=== PATIENT | female | born 1945 | race Caucasian/White ===

== ENCOUNTER 2019-08-01 10:48 | Outpatient (CLI) | payer MEDICARE, SELFPAY ==
--- NOTE | 2019-08-01 11:01 | MM_ITS ---
WS: [id number] BILATERAL SCREENING DIGITAL MAMMOGRAM WITH CAD HISTORY: SCREENING COMPARISON: 05/24/2018 and 11/30/2014 Bilateral CC and MLO views submitted. Computer aided detection analyzed. Breast composition: The breasts are heterogeneously dense, which may obscure small masses. No suspici ous masses, microcalcifications or architectural distortion. Benign calcifications are scattered thro ughout each breast. No distortion. MM/[place] [id number] IMPRESSION: BI-RADS: 2-Benign FOLLOW UP: 1 Year Follow-up
== END 2019-08-01 10:49 | disposition home or self-care (01) ==
LOC: RADSHAW 10:52
PROVIDERS: Family Provider Family Medicine; PCP Family Medicine; Visit Provider Family Medicine
DX: Z12.31 Encounter for screening mammogram for malignant neoplasm of breast (principal)
CPT/HCPCS: 77067

== ENCOUNTER → 2020-12-20 16:30 | Outpatient (BNVA) | payer MEDICARE, SELFPAY | PROVIDERS: Family Provider Family Medicine; PCP Family Medicine; Visit Provider Nurse Practitioner Family | DX: J20.9 Acute bronchitis, unspecified (principal); R68.89 Other general symptoms and signs | CPT/HCPCS: 87635 ==

== ENCOUNTER → 2020-12-29 16:20 | Outpatient (BNVA) | payer MEDICARE, SELFPAY | PROVIDERS: Family Provider Family Medicine; PCP Family Medicine; Visit Provider Nurse Practitioner Family | DX: J40 Bronchitis, not specified as acute or chronic (principal); R06.02 Shortness of breath; I70.0 Atherosclerosis of aorta | CPT/HCPCS: 71046 ==

== ENCOUNTER 2021-05-17 12:04 | Outpatient (CLI) | payer MEDICARE, SELFPAY ==
--- NOTE | 2021-05-17 12:09 | USCV_ITS ---
Nisha Galindo Age: 76 Gender: F : 1945 Exam Date: 05/17/2021 12:31 Ordering Phys: Susan Sinclair NP Technologist: Harvinder Rodriguez Exam Location: [facility] [place] Indication: SOB BP: 126 / 68 HR: 66 Rhythm: Sinus Technical Quality: Technically difficult study MEASUREMENTS (Male / Female) Normal Values 2D ECHO LV Diastolic Diameter PLAX 4.2 cm 4.2 - 5.9 / 3.9 - 5.3 cm LV Systolic Diameter PLAX 3.0 cm IVS Diastolic Thickness 0.9 cm 0.6 - 1.0 / 0.6 - 0.9 cm IVS Systolic Thickness 1.3 cm LVPW Diastolic Thickness 1.4 cm 0.6 - 1.0 / 0.6 - 0.9 cm LVPW Systolic Thickness 1.7 cm LVOT Diameter 2.0 cm LV Ejection Fraction 2D Teich 55.3 % LV Ejection Fraction MOD 2C 56.5 % LV Ejection Fraction 2C AL 55.7 % LA Diameter 3.1 cm LA Width 2.6 cm LA Height 4.7 cm RA Width 3.0 cm RA Height 3.8 cm Aorta at Sinotubular Diameter 2.3 cm M-MODE MV E Point Septal Separation 1.1 cm DOPPLER AV Peak Velocity 127.0 cm/s LVOT Peak Velocity 91.0 cm/s AV Area Cont Eq vti 2.6 cm squared AV Area Cont Eq pk 2.3 cm squared MV Area PHT 3.9 cm squared Mitral E to A Ratio 0.8 MV E' Velocity 23.5 cm/s Mitral E to MV E' Ratio 5.2 Mitral E to LV E' Lateral Ratio 6.8 Mitral E to LV E' Septal Ratio 4.3 TR Peak Velocity 137.0 cm/s TR Peak Gradient 7.5 mmHg RV Acceleration Time 0.1 s RV Ejection Time 0.3 s RV AcT/ET 0.3 FINDINGS Left Ventricle Normal left ventricular size. LV systolic function is normal with EF of 55-60%. No regional wall motion abnormalities. Grade 1 diastolic dysfunction Right Ventricle The right ventricle is normal in size and function. Right Atrium The right atrium is normal in size. Left Atrium The left atrium is normal in size. Mitral Valve Structurally normal mitral valve without significant stenosis or prolapse. There is trace mitral regurgitation. Aortic Valve Grossly normal with no significant stenosis. There is no aortic regurgitation. Tricuspid Valve Structurally normal tricuspid valve without significant stenosis or regurgitation. Insufficient TR jet to calculate RVSP Pulmonic Valve Grossly normal Pericardium Normal pericardium without effusion. Aorta Normal ascending aorta dimension. CONCLUSIONS LV systolic function is normal with EF 55 to 60%. Grade 1 diastolic dysfunction. Trace mitral regurgitation. No comparison studies are available. Brock Blair MD (Electronically Signed) Final Date: 25 May 2021 18:19 S
== END 2021-05-17 12:05 | disposition home or self-care (01) ==
LOC: RAD 12:07
PROVIDERS: PCP Family Medicine; Visit Provider Nurse Practitioner Family
DX: R06.02 Shortness of breath (principal); I34.0 Nonrheumatic mitral (valve) insufficiency
CPT/HCPCS: 93306

== ENCOUNTER → 2021-07-07 13:00 | Outpatient (BNVA) | payer MEDICARE, SELFPAY | PROVIDERS: PCP Family Medicine; Visit Provider Internal Medicine Cardiovascular Disease | DX: R06.02 Shortness of breath (principal); I50.33 Acute on chronic diastolic (congestive) heart failure; N18.9 Chronic kidney disease, unspecified; G25.0 Essential tremor; E11.65 Type 2 diabetes mellitus with hyperglycemia; I13.0 Hypertensive heart and chronic kidney disease with heart failure and stage 1 through stage 4 chronic kidney disease, or unspecified chronic kidney disease; F32.89 Other specified depressive episodes; G47.33 Obstructive sleep apnea (adult) (pediatric); E78.2 Mixed hyperlipidemia; Z79.01 Long term (current) use of anticoagulants; R07.2 Precordial pain | CPT/HCPCS: 80048; 83880; 84443; 85025 ==

== ENCOUNTER → 2021-08-16 10:45 | Outpatient (BNVA) | payer MEDICARE, SELFPAY | PROVIDERS: PCP Family Medicine; Referring Provider Family Medicine; Visit Provider Specialist | DX: G31.84 Mild cognitive impairment of uncertain or unknown etiology (principal); R25.1 Tremor, unspecified; R44.1 Visual hallucinations; F32.A Depression, unspecified; Z86.16 Personal history of COVID-19 | CPT/HCPCS: 96116; 99205 ==

== ENCOUNTER 2021-08-31 07:14 | Outpatient (CLI) | payer MEDICARE, SELFPAY ==
[2021-08-31 08:09] VITALS: BMI 41.0
--- NOTE | 2021-08-31 08:11 | NMCV_ITS ---
NM roxi perf SPECT r/s* [id number] Nisha Galindo Age: 76 Gender: F : 1945 Exam Date: 08/31/2021 08:53 Ordering Phys: Char Mendez MD ([email or web address]) Technologist: LG Castellon Exam Location: [facility] Indications: SHORTNESS OF BREATH STRESS TEST Please see separate stress test report in [facility] for full findings IMAGE PROTOCOL Rest/Stress 1 Lexiscan Day Radiopharmaceutical Dose (mCi) Administration Site Administered by Rest: Tc-99m 10.8 IV LG Lopez Sestamibi Stress:Tc-99m 32.5 IV LG Castellon Sestamirajendra Rest: 31-Aug-2021 60 Discovery 630 Stress: 31-Aug-2021 30 Discovery 630 0.4mg Lexiscan. Images obtained in supine and prone position. SPECT RESULTS Technical Quality: Excellent Raw Data Analysis: Normal Image Corrections: No attenuation or motion correction applied Summed Stress Score: 4 Summed Rest Score: 2 Summed Difference Score: 2 PERFUSION FINDINGS Small to moderate area of moderately decreased size of it was noted in the mid inferolateral and apical lateral regions. Some reversibility was noted in the mid inferolateral region. FUNCTIONAL RESULTS (calculated via Gated SPECT) Stress Image LV EF (%): 70 Stress EDV (mL):80 TID: 0.91 Stress ESV (mL):24 FUNCTIONAL FINDINGS: Segmental wall motion analysis revealing no gross wall motion abnormalities IMPRESSIONS 1. Myocardial perfusion imaging revealing is small to moderate area of decreased tracer uptake in the mid inferolateral and apical lateral region, but some reversibility in the mid inferolateral region suggestive of myocardial scarring with ischemia in the distribution of the left circumflex artery. 2. Normal LV ejection fraction 70%. 3. LV wall motion analysis revealing no gross wall motion normalities. 4. Normal LV volume. No similar previous studies are available for comparison Dr Char Mendez MD FACC (Electronically Signed) Final Date: 01 September 2021 00:48 S
--- NOTE | 2021-08-31 08:11 | ECG_ITS ---
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 Interpretive Statements NAME OF STUDY: LEXISCAN SESTAMIBI STRESS TEST INDICATION: Chest Pain, PROCEDURE: At the baseline, the EKG revealed atrial flutter with a fixed AV block. Poor R wave progression. Nonspecific T wave changes. The baseline blood pressure was 134/85 mm Hg with a heart rate of 74 beats/min. Lexiscan was infused over a period of 20 seconds. A total of 0.4 milligrams of Lexiscan was infused. The stress phase was continued for a total of 5 minutes. Heart rate at the end of the stress phase was 109 with a blood pressure 153/95. The EKG at the peak infusion revealed no significant changes. Sestamibi was injected 20 seconds after the Lexiscan infusion. Blood pressure at the end of the recovery phase was 143/85 with a heart rate of 84 per minute. CONCLUSION: 1. No significant EKG changes with the LexiScan infusion 2. No LexiScan induced chest pain or cardiac arrhythmia 3. Normal blood pressure and heart rate response 4. Sestamibi/sestamibi perfusion scan pending; see separate report. Electronically Signed On 09-01-2021 0:19:26 PROPERTY UNDERWRITER by Char Mendez M.D. [id number]
[2021-08-31] MEDS: regadenoson 0.4 Mg/5 ml Syringe IVP (09:48)
[2021-08-31] MEDS: ondansetron 2 mg/ML SDV 2 mL 4 MG IVP (10:03)
[2021-08-31 10:05] VITALS: BP 143/85; PULSE 84
== END 2021-08-31 07:15 | disposition home or self-care (01) ==
LOC: RAD 07:16 → CDL 07:55
PROVIDERS: PCP Family Medicine; Visit Provider Internal Medicine Cardiovascular Disease
DX: R07.9 Chest pain, unspecified (principal); R06.02 Shortness of breath
CPT/HCPCS: 78452; 93017; A9500; J2405; J2785

== ENCOUNTER 2021-10-04 08:53 | Outpatient (CLI) | payer MEDICARE, SELFPAY ==
--- NOTE | 2021-10-04 09:30 | MR_ITS ---
WS: [id number] MRI HEAD WITHOUT CONTRAST TECHNIQUE: Sagittal T1, T2 axial, T2 axial FLAIR, axial and coronal T1 images, axial susceptibility w eighted imaging, axial diffusion weighted images, and coronal T2 images were obtained. CLINICAL INFORMATION: G31.84 - Mild cognitive impairment, so stated COMPARISON: CT 1 16,008 FINDINGS: No evidence of restricted diffusion to suggest acute ischemia. Ventricular system and basal cisterns are patent. Moderate small vessel changes with moderate parenchymal volume loss. Normal posterior fos sa. Normal vascular flow voids at the skull base. No extra-axial fluid collections. No evidence of ma ss or mass effect. Paranasal sinuses and mastoid air cells are well aerated. Normal optic chiasm and pituitary infundibulum. Moderate to advanced symmetric atrophy temporal lobes and hippocampal formations has progressed compared to 2008. No hemosiderin on susceptibly weighted i mages. MR/MR head wo con* [id number] IMPRESSION: 1. No evidence of restricted diffusion to suggest acute ischemia. 2. Moderate small vessel changes with moderate parenchymal volume loss. 3. Paranasal sinuses and mastoid air cells well aerated. 4. No hemosiderin on susceptibly weighted images. 5. Moderate to advanced symmetric atrophy temporal lobes and hippocampal forma tions. This is advanced compared to the cerebral parenchymal volume loss. 6. Normal optic chiasm and pituitary infundibulum. 7. Parenchymal volume loss and atrophy has progressed compared to 2008.
== END 2021-10-04 08:54 | disposition home or self-care (01) ==
LOC: RAD 08:55
PROVIDERS: PCP Family Medicine; Visit Provider Specialist
DX: G31.84 Mild cognitive impairment of uncertain or unknown etiology (principal)
CPT/HCPCS: 70551; 99214

== ENCOUNTER → 2021-12-21 14:45 | Outpatient (BNVA) | payer MEDICARE, SELFPAY | PROVIDERS: PCP Family Medicine; Visit Provider Specialist | DX: G31.84 Mild cognitive impairment of uncertain or unknown etiology (principal); G25.0 Essential tremor | CPT/HCPCS: 99215 ==

== ENCOUNTER → 2022-01-03 15:18 | Outpatient (BNVA) | payer MEDICARE, SELFPAY | PROVIDERS: PCP Family Medicine; Visit Provider Internal Medicine Cardiovascular Disease | DX: R94.39 Abnormal result of other cardiovascular function study (principal); I11.9 Hypertensive heart disease without heart failure; Z87.891 Personal history of nicotine dependence; F32.89 Other specified depressive episodes; G47.33 Obstructive sleep apnea (adult) (pediatric); E78.2 Mixed hyperlipidemia; E11.65 Type 2 diabetes mellitus with hyperglycemia; Z79.84 Long term (current) use of oral hypoglycemic drugs | CPT/HCPCS: 99214 ==

== ENCOUNTER → 2022-03-22 15:11 | Outpatient (BNVA) | payer MEDICARE, SELFPAY | PROVIDERS: PCP Family Medicine; Visit Provider Specialist | DX: G31.84 Mild cognitive impairment of uncertain or unknown etiology (principal); G25.0 Essential tremor | CPT/HCPCS: 99213 ==

== ENCOUNTER 2022-08-31 13:01 | Emergency (ER) | payer MEDICARE, SELFPAY ==
[2022-08-31 13:20] VITALS: BP 152/69; PULSE 71; RESP 16; TEMP 36.7; O2SAT 98
--- NOTE | 2022-08-31 13:42 | XR_ITS ---
WS: [id number] Right wrist, 3 views, 08/31/2022 Clinical Data: fall with right wrist injury Comparison: None. Findings: No fractures or dislocations are seen. The carpal bones are intact. There is no soft tissue swelling. The distal radius and ulna are not remarkable. There is cyst formation in the scaphoid bone. There are ventral calcifications which may be adjacent to the triquetrum or the lunate. There are faint calcifications of the triradiate cartilage. XR/XR wrist RT min 3V* [id number] Impression: Negative for right wrist fracture.
--- NOTE | 2022-08-31 14:14 | W.ED.EXTPRO ---
HPI - Extremity Problem General: Chief complaint: Extremity Injury, Upper Stated complaint: right wrist injury Time Seen by Provider: 08/31/22 13:40 History of Present Illness: Patient is a 77-year-old female comes to the ED with right wrist and hand injury. Injury occurred last night. Patient states she was walking in her house somewhat to push her ottoman out of the way and she fell backwards up against the wall. She slid down the wall and landed on her right hand and wrist. Denies any loss of consciousness or any other injury. She has pain in her right wrist and hand that she rates a 5 out of 10. She has localized points of pain near the base of her thumb, third and fourth metacarpals and ulnar aspect of wrist. Pain worsens with any movement of wrist or fingers. Associated symptoms: Deny chest pain, fever(s) or rash Review of Systems Const: Denies: fever(s), chills or fatigue Eyes: Denies: change in vision or eye discomfort ENMT: Denies: throat pain, odynophagia, nasal discharge or nasal congestion Card: Denies: chest pain, palpitations, edema, swelling of feet/ankles, dyspnea on exertion or orthopnea Resp: Denies: dyspnea, productive cough or non-productive cough GI: Denies: abdominal pain, nausea, vomiting, diarrhea, constipation or hematochezia : Denies: flank pain, dysuria or hematuria Musc: Reports: extremity pain (Right wrist and hand pain), extremity swelling (Right wrist and hand) and limited range of motion (Right wrist and hand); Denies: neck pain or back pain Skin/Breast: Denies: rash or new lesions Neuro: Denies: headache(s), numbness in extremities or weakness in extremities PFS ED PFSH: Medical History Depression Diabetes mellitus Diastolic dysfunction Essential tremor Hemorrhagic diarrhea History of rectocele Hyperlipemia Rectal bleeding Sleep apnea Surgical History History of knee replacement Hx of cholecystectomy Hx of hysterectomy Hx of tonsillectomy Family History Family/Other No problems noted. Father CAD (coronary artery disease), Onset Age: 70 Diabetes Mother CAD (coronary artery disease), Onset Age: 60 Grandmother Chronic kidney disease (CKD) Son Lung disease Denies family history of Clotting disorder Dementia Suicide Anesthesia complication Bleeding disorder Cancer Stroke Social History Smoking and tobacco status: never smoked Quit status (tobacco): has quit using tobacco Year quit tobacco: 1984 Former quit date comment: 1 PPD X 15 YEARS Alcohol intake: current Alcohol intake frequency: holidays/special occasions only Female Reproductive History: Spontaneous abortions: No Physical Exam Const: COMMON NORMALS: no acute distress, patient oriented x3 and alert GENERAL APPEARANCE: cooperative HENMT: COMMON NORMALS: normocephalic HEAD & SCALP: normocephalic MOUTH: Normal oral and palatal mucosa present THROAT: posterior oropharynx normal and uvula midline Neck/C-Spine: COMMON NORMALS: supple GENERAL: Yes normal visual inspection Resp: COMMON NORMALS: normal respiratory effort, No retractions, No use of accessory muscles and clear to auscultation bilaterally AUSCULTATION: clear to auscultation bilaterally Cardio: COMMON NORMALS: regular rate, regular rhythm, S1 normal heart sound present, S2 normal heart sound present, No gallops present (Cardio), No clicks present (Cardio), No murmurs present (Cardio) and Peripheral pulses 2+ throughout RATE: regular rate RHYTHM: regular rhythm HEART SOUNDS: S1 normal heart sound present and S2 normal heart sound present PERIPHERAL PULSES: Peripheral pulses 2+ throughout GI: COMMON NORMALS: Normal to inspection, nondistended, normoactive bowel sounds present, Soft to palpation, non-tender and no masses PALPATION: Yes Soft to palpation : COMMON NORMALS: Yes no CVA tenderness BLADDER/KIDNEY EXAM: Yes no CVA tenderness Back/Pelvis: COMMON NORMALS: no CVA tenderness Extremity: NARRATIVE EXTREMITY EXAM: Right wrist and hand?no visible deformity noted. Mild swelling noted around wrist and hand. Tenderness over the ulnar aspect of wrist, thenar region of thumb and third and fourth metacarpals. Full range of motion but endorses pain with range of motion. Neurovascular intact distally. Neuro: COMMON NORMALS: patient oriented x3 SENSORIUM/ORIENTATION: Yes alert GAIT: Yes Normal gait present Skin: GENERAL SKIN EXAM: dry skin Course Vital Signs: Vital signs: Vital Signs Temperature 98.1 F 08/31/22 13:20 Pulse Rate 71 08/31/22 13:20 Respiratory Rate 16 08/31/22 13:20 Blood Pressure 152/69 08/31/22 13:20 Pulse Oximetry 98 08/31/22 13:20 Oxygen Delivery Me thod 08/31/22 13:20 MDM - Extremity (Nontraumatic) Medical Decision Making Patient is a 77-year-old female comes to the ED with right wrist and hand injury. Injury occurred last night. Patient states she was walking in her house somewhat to push her ottoman out of the way and she fell backwards up against the wall. She slid down the wall and landed on her right hand and wrist. Denies any loss of consciousness or any other injury. She has pain in her right wrist and hand that she rates a 5 out of 10. She has localized points of pain near the base of her thumb, third and fourth metacarpals and ulnar aspect of wrist. Pain worsens with any movement of wrist or fingers. Vital stable. Right wrist and hand?no visible deformity noted. Mild swelling noted around wrist and hand. Tenderness over the ulnar aspect of wrist, thenar region of thumb and third and fourth metacarpals. Full range of motion but endorses pain with range of motion. Neurovascular intact distally. Right wrist x-ray?negative for right wrist fracture. Patient was diagnosed with a injury of right wrist and discharged home with a Velcro wrist splint. She was told all follow-up with her PCP within the next week for reevaluation. Return to ED precautions given. Patient understood and agreed with plan. Lab Data Radiology Impressions Wrist X-Ray 08/31/22 13:42 Impression: Negative for right wrist fracture. Discharge Plan Discharge Patient Disposition: Home Clinical Impression: Injury of right wrist Qualifiers: Encounter type: initial encounter Qualified Code(s): S69.91XA - Unspecified injury of right wrist, hand and finger(s), initial encounter Condition: Stable Prescriptions: No Action metformin 1,000 mg tablet 1,000 mg PO BID montelukast 10 mg tablet 10 mg PO DAILY olmesartan 20 mg tablet 20 mg PO DAILY pantoprazole 40 mg tablet,delayed release (DR/EC) 40 mg PO DAILY promethazine 12.5 mg tablet 12.5 mg PO Q6H PRN tramadol 100 mg tablet 100 mg PO DAILY PRN lovastatin 40 mg tablet 40 mg PO DAILY desvenlafaxine 100 mg tablet extended release 24 hr 100 mg PO DAILY lamotrigine 100 mg tablet 200 mg PO DAILY metoprolol tartrate 50 mg tablet 50 mg PO BID albuterol sulfate [ProAir HFA] 90 mcg/actuation HFA aerosol inhaler 2 puff inhalation Q6H PRN (Reason: shortness of breath or wheezing) Qty: 8.5 0RF ipratropium bromide 21 mcg (0.03 %) spray,non-aerosol 2 spray intranasal BID Qty: 30 0RF Rx Instructions: administer into each nostril albuterol sulfate 2.5 mg /3 mL (0.083 %) solution for nebulization 2.5 mg inhalation Q6H PRN (Reason: shortness of breath or wheezing) Qty: 75 0RF (DME) AeroEclipse II Nebulizer [facility] [place] Instructions .Route Qty: 1 0RF Rx Instructions: As directed budesonide 0.5 mg/2 mL suspension for nebulization 0.5 mg inhalation BID Qty: 60 0RF nitroglycerin 0.4 mg tablet, sublingual 0.4 mg sublingual Q5M PRN (Reason: chest pain) 30 Days Qty: 30 3RF Rx Instructions: until response; do not exceed 3 doses per episode isosorbide mononitrate 30 mg tablet extended release 24 hr 30 mg PO DAILY 30 Days Qty: 30 5RF benztropine 2 mg tablet 2 mg PO BID Qty: 60 3RF Rx Instructions: Take one tablet twice daily. Discharge Orders: Discharge ED (Routine); Ordered 08/31/22 Ordered By: Panchito Rueda Referrals: Margo Galindo MD [Primary Care Provider] - Discharge Diet: Regular Discharge Activity: Increase activity as tolerated Patient Instructions: Wrist Injury (ED) Activity Restrictions/Additional Instructions: Follow-up with medical provider as directed in the next 5 to 7 days for reevaluation. Wear Velcro wrist splint for the next couple days to help with symptoms. Rest, ice and elevate right wrist and hand. Take [id number] Tylenol or ibuprofen to help with pain. Return to the ER or your medical provider if condition worsens. Please read and understand discharge instructions. Thank you for choosing [facility] for your healthcare needs today. Please realize this is an emergency room and that we are providing you with a medical screening exam and this may not be complete and all inclusive of all the testing and or work up that you may need to determine your ailment or severity of your illness. It is very important that you follow up as instructed or that you return to the Emergency Department should you have concerns or if your condition changes or worsens in any way. Coding Level of Care Code ED Java Mobile Developer for Tahira Zamora
[2022-08-31] MEDS: acetaminophen 500 mg Tablet 1000 MG PO (14:41)
== END 2022-08-31 14:42 | disposition home or self-care (01) ==
PROVIDERS: Emergency Provider Physician Assistant; PCP Family Medicine
DX: S69.91XA Unspecified injury of right wrist, hand and finger(s), initial encounter (principal); Z79.84 Long term (current) use of oral hypoglycemic drugs; Z87.891 Personal history of nicotine dependence; E11.9 Type 2 diabetes mellitus without complications; E78.5 Hyperlipidemia, unspecified; W18.39XA Other fall on same level, initial encounter
CPT/HCPCS: 73110; 99283

== ENCOUNTER → 2022-10-18 08:40 | Outpatient (BNVA) | payer MEDICARE, SELFPAY | PROVIDERS: PCP Family Medicine; Visit Provider Specialist | DX: G31.84 Mild cognitive impairment of uncertain or unknown etiology (principal); G25.0 Essential tremor; R11.0 Nausea; E11.9 Type 2 diabetes mellitus without complications; Z79.84 Long term (current) use of oral hypoglycemic drugs | CPT/HCPCS: 96116; 99214 ==

== ENCOUNTER → 2022-12-18 13:45 | Outpatient (BNVA) | payer MEDICARE, SELFPAY | PROVIDERS: PCP Family Medicine; Visit Provider Specialist | DX: G31.83 Neurocognitive disorder with Lewy bodies (principal); F02.82 Dementia in other diseases classified elsewhere, unspecified severity, with psychotic disturbance; F32.A Depression, unspecified | CPT/HCPCS: 99215 ==

== ENCOUNTER 2022-12-26 19:35 | Emergency (ER) | payer MEDICARE, MEDICAID, SELFPAY ==
[2022-12-26 19:36] VITALS: PULSE 85; RESP 24; TEMP 30; O2SAT 99; BMI 35.9
--- NOTE | 2022-12-26 19:36 | ED_ITS ---
HPI - Fall General: Chief Complaint: Fall Stated Complaint: FALL Time Seen by Provider: 12/26/22 19:36 Limitations: altered mental status History of Present Illness: Ms. Galindo is a 77-year-old lady with tremor, hyperlipidemia, diabetes presenting to the emergency department for fall with head injury. She provides somewhat limited history as she reports it is difficult to think. She reports falling backwards in a parking lot. Denies preceding chest pain, lightheadedness, shortness of breath, or dizziness. Moderate to severe intensity pain in the back of her head as well as neck and right shoulder region. Also has developed pain in her right calf. Worse with palpation and movement. No other specific changes in health, exacerbating, or alleviating factors identified. Patient reports being up-to-date on Tdap. Collateral information is that patient has been at baseline health. She typically ambulates with a cane. 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 It was raining when she came out. She put the pizza in the back of the car and then fell backwards. No obvious loss of consciousness. No prolonged downtime. Onset (ago): minute(s) Fall witnessed: yes, by family Place fall occurred: street Loss of consciousness: Unsure Symptoms prior to fall: none Location of injury: head, neck, back and other Severity: severe Quality: sharp, stabbing and aching Review of Systems General: Reports: 10 or more systems reviewed and unremarkable except in HPI and below PFSH ED PFSH: Medical History Depression Diabetes mellitus Diastolic dysfunction Essential tremor Hemorrhagic diarrhea History of rectocele Hyperlipemia Rectal bleeding Sleep apnea Surgical History History of knee replacement Hx of cholecystectomy Hx of hysterectomy Hx of tonsillectomy Family History Family/Other No problems noted. Father CAD (coronary artery disease), Onset Age: 70 Diabetes Mother CAD (coronary artery disease), Onset Age: 60 Grandmother Chronic kidney disease (CKD) Son Lung disease Denies family history of Clotting disorder Dementia Suicide Anesthesia complication Bleeding disorder Cancer Stroke Social History Smoking and tobacco status: never smoked Quit status (tobacco): has quit using tobacco Year quit tobacco: 1984 Former quit date comment: 1 PPD X 15 YEARS Alcohol intake: current Alcohol intake frequency: holidays/special occasions only Substance/Drug Use: never Female Reproductive History: Spontaneous abortions: No Physical Exam Const: COMMON NORMALS: alert GENERAL APPEARANCE: cooperative and well developed HENMT: COMMON NORMALS: normocephalic HEAD & SCALP: normocephalic THROAT: posterior oropharynx normal OTHER: Large roughly H shaped laceration to the posterior occipital region of the head. Bleeding controlled with bandage in place. No mai signs or raccoon eyes. No hemotympanum. No otorrhea or rhinorrhea. Jaw alignment normal. Dentition baseline. No obvious bony step-offs. No septal hematoma. No evidence of ocular entrapment. Eye: COMMON NORMALS: conjunctivae normal CONJUNCTIVA: Yes conjunctivae normal SCLERA: sclerae normal Neck/C-Spine: COMMON NORMALS: supple GENERAL: Yes trachea midline Chest: OTHER: Mild sternal tenderness to palpation. Resp: EFFORT & INSPECTION: Yes able to speak in complete sentences Cardio: COMMON NORMALS: regular rate and regular rhythm RATE: regular rate RHYTHM: regular rhythm GI: COMMON NORMALS: Soft to palpation PALPATION: Yes Soft to palpation and No Tenderness to palpation present (GI) Extremity: GENERAL: Yes normal exam except as noted and No edema Neuro: COMMON NORMALS: moves all extremities SENSORIUM/ORIENTATION: Yes alert and Yes Orientation impaired Psych: COMMON NORMALS: mental status grossly normal and Normal thought process present THOUGHT PROCESS: Normal thought process present Procedures Laceration Laceration 1: Side (If applicable): right Size (cm): 15 Description: stellate and irregular Depth: involves muscle layer Local Anesthetic: lidocaine 1% and with epi Amount of anesthesia used (mL): 10 Pre-repair: wound explored, irrigated extensively, deep structures intact (Aponeurosis) and extensive debridement (of solidified hematoma) Skin layer closed with: nylon and other Size (cm): 3-0 and other (15 maliha) Number of sutures: 5 Course Vital Signs: Vital signs: Vital Signs Temperature 86 F L 12/26/22 19:36 Pulse Rate 71 12/26/22 23:54 Respiratory Rate 12 12/26/22 23:54 Blood Pressure 106/55 12/26/22 23:54 Pulse Oximetry 91 12/26/22 23:54 Oxygen Delivery Me thod Room Air 12/26/22 23:17 MDM - Fall Medical Decision Making 77-year-old lady presenting due to fall. Head to toe exam performed and as no iraida above. Given patient reported history and supplemental information provided by family no occasion for laboratory studies at this time. Imaging ordered based on physical exam findings. No acute internal injuries identified on head or cervical spine imaging. No traumatic injuries identified on CT chest abdomen pelvis or other x-rays. Incidental findings discussed with patient including need for follow-up. Laceration was cleaned and irrigated extensively as noted. This was a complex laceration requiring hematoma evacuation prior to closure and closure with both maliha and sutures. Hemostasis and closure achieved. Dressing applied. Patient treated with analgesia and antiemetic. Tdap is up-to-date. The results of ED evaluation were discussed with the patient including prescript ions and/or symptomatic cares (if applicable) including appropriate and responsible use, followup plan, and return precautions. The patient verbalized understanding and felt safe for discharge. Medical Records I reviewed the patient's medical records. Lab Data I reviewed the patient's lab results. Radiology Impressions Cervical Spine CT 12/26/22 19:42 IMPRESSION: 1. Chronic degenerative changes with prior exam. 2. No fracture or acute osseous abnormality. Chest/Abdomen/Pelvis CT 12/26/22 19:42 IMPRESSION: 1. 2 mm pulmonary nodule posterior segment left upper lobe near the major fissure. Axial series 4, image 22. Followup as discussed below. 2. Heterogeneous thyroid glands most consistent with multinodular goiter. 3. No acute findings. For patients at low risk (minimal or absent history of smoking and of other known risk factors), no routine follow-up is indicated. For patients at high risk (history of smoking or of other known risk factors), consider optional IMPRESSION: 1. 3.1 cm partially calcified left adrenal mass. Correlation with non-emergent MRI is recommended to rule out malignant neoplasm versus benign adrenal adenoma. 2. No acute findings. COMMENTS: Consistent with the [employer]'s Incidental Findings Committee white paper (J Am Constantino Radiol 2018): Any incidental renal lesion less than 1 cm or classified as too small to characterize, or any incidental cystic renal lesion characterized as simple-appearing, is likely benign. No follow-up imaging is recommended for these lesions per consensus recommendations based on imaging criteria. Head CT 12/26/22 19:42 IMPRESSION: 1. Atrophic or involutional change and chronic small-vessel disease change bilaterally. 2. Large soft tissue scalp swelling and hematoma of the right posterior parietal scalp, without identification of underlying skull fracture. 3. No acute intracranial abnormality. No intracranial hemorrhage or hematoma. Humerus X-Ray 12/26/22 19:42 IMPRESSION: No fracture or acute osseous abnormality. Tibia/Fibula X-Ray 12/26/22 19:42 IMPRESSION: No fracture or acute osseous abnormality. Discharge Plan Discharge Patient Disposition: Home Clinical Impression: Fall, Laceration of head Condition: Stable Prescriptions: No Action metformin 1,000 mg tablet 1,000 mg PO BID montelukast 10 mg tablet 10 mg PO DAILY olmesartan 20 mg tablet 20 mg PO DAILY pantoprazole 40 mg tablet,delayed release (DR/EC) 40 mg PO DAILY promethazine 12.5 mg tablet 12.5 mg PO Q6H PRN tramadol 100 mg tablet 100 mg PO DAILY PRN lovastatin 40 mg tablet 40 mg PO DAILY lamotrigine 100 mg tablet 200 mg PO DAILY metoprolol tartrate 50 mg tablet 50 mg PO BID albuterol sulfate [ProAir HFA] 90 mcg/actuation HFA aerosol inhaler 2 puff inhalation Q6H PRN (Reason: shortness of breath or wheezing) Qty: 8.5 0RF ipratropium bromide 21 mcg (0.03 %) spray,non-aerosol 2 spray intranasal BID Qty: 30 0RF Rx Instructions: administer into each nostril albuterol sulfate 2.5 mg /3 mL (0.083 %) solution for nebulization 2.5 mg inhalation Q6H PRN (Reason: shortness of breath or wheezing) Qty: 75 0RF (DME) AeroEclipse II Nebulizer [facility] [place] See Rx Instructions .Route Qty: 1 0RF Rx Instructions: As directed budesonide 0.5 mg/2 mL suspension for nebulization 0.5 mg inhalation BID Qty: 60 0RF nitroglycerin 0.4 mg tablet, sublingual 0.4 mg sublingual Q5M PRN (Reason: chest pain) 30 Days Qty: 30 3RF Rx Instructions: until response; do not exceed 3 doses per episode citalopram 40 mg tablet 40 mg PO DAILY Qty: 30 5RF galantamine 8 mg tablet 8 mg PO BID 30 Days Qty: 60 3RF Rx Instructions: administer with AM and PM meals aripiprazole [Abilify] 2 mg tablet 2 mg PO DAILY isosorbide mononitrate 30 mg tablet extended release 24 hr 30 mg PO DAILY 30 Days Qty: 30 5RF benztropine 2 mg tablet See Rx Instructions .ROUTE .COMPLEX Qty: 180 0RF Dose Instruction: TAKE ONE TABLET BY MOUTH TWICE DAILY Rx Instructions: TAKE ONE TABLET BY MOUTH TWICE DAILY (DME) DME: Walker Unit See Rx Instructions .Route Qty: 1 0RF Rx Instructions: Wide Wheeled Walker 8 Casters Discharge Orders: Discharge ED (Routine); Ordered 12/26/22 Ordered By: Gustabo Loyola Referrals: Margo Galindo MD [Primary Care Provider] - Discharge Diet: Usual diet Discharge Activity: Limit activity as instructed Patient Instructions: Fall Prevention for Older Adults (ED), Head Injury (ED), Head Laceration (ED), Opioid Safety Activity Restrictions/Additional Instructions: Thank you for visiting the emergency department. You were seen and evaluated for fall with head injury. No internal injuries were identified. Most of your pain is related to soft tissue injury. A complex scalp laceration was repaired with 15 maliha and 5 sutures. These require removal in 10 days. As discussed keep the area clean and dry, watch for signs of infection. Do not get the area wet for 24 hours, after that you may get it wet however do not soak it and please be cautious. Do not use a comb or brush or other things that may catch the sutures or maliha. Follow-up with your primary care provider. Incidentally you were noted to have a pulmonary nodule and adrenal nodule. Adrenal nodule requires further imaging with MRI. Pulmonary nodule requires CT chest in 1 year. These can be arranged by your primary care provider. Return for uncontrolled symptoms or anything else that you are concerned about and feel needs emergency department evaluation. Coding Level of Care Code ED [employer] Consultant for Tahira Zamora
--- NOTE | 2022-12-26 19:42 | CTR_ITS ---
PROCEDURE INFORMATION: Exam: CT Cervical Spine Without Contrast Exam date and time: 12/26/2022 8:13 PM Age: 77 years old Clinical indication: Injury or trauma; Fall; Concussion/head injury; Additional info: Fall, headstrike, AMS TECHNIQUE: Imaging protocol: Computed tomography of the cervical spine without contrast. Radiation optimization: All CT scans at this facility use at least one of these dose optimization techniques: automated exposure control; mA and/or kV adjustment per patient size (includes targeted exams where dose is matched to clinical indication); or iterative reconstruction. REPORTING DATA: Count of CT and Cardiac NM exams in prior 12 months: This patient has received 0 known CTs and 0 known cardiac nuclear medicine studies in the 12 months prior to the current study. COMPARISON: CT cervical spin wo con* [id number] 03/07/2017 9:13 PM RADIATION DOSE METRICS: Total DLP (mGy-cm): 460.08 FINDINGS: Bones/joints: Cervical vertebral body heights appear maintained. Spondylotic change with component of degenerative disc disease is seen throughout the cervical spine. Straightening of the cervical curvature is noted along with mild degenerative anterolisthesis of C4 on C5. Findings are chronic with 2017 exam. No fracture or acute osseous abnormality. No severe spinal stenosis. Lungs: Visualized lung apices appear unremarkable. Soft tissues: Paravertebral soft tissues show no acute abnormality. Chronic right thyroid nodule noted with [address]/CT cervical spin wo con* [id number] IMPRESSION: 1. Chronic degenerative changes with prior exam. 2. No fracture or acute osseous abnormality.
--- NOTE | 2022-12-26 19:42 | CTR_ITS ---
PROCEDURE INFORMATION: Exam: CT Chest With Contrast; Diagnostic Exam date and time: 12/26/2022 8:16 PM Age: 77 years old Clinical indication: Injury or trauma; Fall; Generalized; Blunt trauma (contusions or hematomas); Prior surgery; Surgery date: 6+ months; Surgery type: Gb hyst; Additional info: Fall, headstrike, AMS TECHNIQUE: Imaging protocol: Diagnostic computed tomography of the chest with contrast. Radiation optimization: All CT scans at this facility use at least one of these dose optimization techniques: automated exposure control; mA and/or kV adjustment per patient size (includes targeted exams where dose is matched to clinical indication); or iterative reconstruction. Contrast material: OMNI 350; Contrast volume: 100 ml; Contrast route: INTRAVENOUS (IV); REPORTING DATA: Count of CT and Cardiac NM exams in prior 12 months: This patient has received 0 known CTs and 0 known cardiac nuclear medicine studies in the 12 months prior to the current study. COMPARISON: CR XR chest 2V* [id number] 12/29/2020 4:46 PM RADIATION DOSE METRICS: Total DLP (mGy-cm): 527.3 FINDINGS: Thyroid: Heterogeneous thyroid glands most consistent with multinodular goiter. Lungs: See Pleural spaces finding. Pleural spaces: 2 mm pulmonary nodule posterior segment left upper lobe near the major fissure. Axial series 4, image 22. Followup as discussed below. Heart: Unremarkable. No cardiomegaly. No pericardial effusion. Lymph nodes: Unremarkable. No enlarged lymph nodes. Vasculature: Unremarkable. No aortic aneurysm. Bones/joints: Moderate left primary glenohumeral osteoarthritis. Severe thoracic spondylosis. Soft tissues: Unremarkable. Other findings: No acute findings. CT Chest at 12 months. (Reference: Param) References: Param Diaz et al. Guidelines for Management of Incidental Pulmonary Nodules Detected on CT Images: From the [employer]ischner Society 2017. Radiology. 2017;284(1):228-243. PROCEDURE INFORMATION: Exam: CT Abdomen And Pelvis With Contrast Exam date and time: 12/26/2022 8:16 PM Age: 77 years old Clinical indication: Injury or trauma; Fall; Generalized; Blunt trauma (contusions or hematomas); Prior surgery; Surgery date: 6+ months; Surgery type: Gb hyst; Additional info: Fall, headstrike, AMS TECHNIQUE: Imaging protocol: Computed tomography of the abdomen and pelvis with contrast. Radiation optimization: All CT scans at this facility use at least one of these dose optimization techniques: automated exposure control; mA and/or kV adjustment per patient size (includes targeted exams where dose is matched to clinical indication); or iterative reconstruction. Contrast material: OMNI 350; Contrast volume: 100 ml; Contrast route: INTRAVENOUS (IV); REPORTING DATA: Count of CT and Cardiac NM exams in prior 12 months: This patient has received 0 known CTs and 0 known cardiac nuclear medicine studies in the 12 months prior to the current study. COMPARISON: CT lumbar spine wo con* [id number] 03/07/2017 9:15 PM RADIATION DOSE METRICS: Total DLP (mGy-cm): 762.3 FINDINGS: Liver: Normal. No mass. Gallbladder and bile ducts: Normal. No calcified stones. No ductal dilation. Pancreas: Normal. No ductal dilation. Spleen: Normal. No splenomegaly. Adrenal glands: 3.1 cm partially calcified left adrenal mass. Correlation with non-emergent MRI is recommended to rule out malignant neoplasm versus benign adrenal adenoma. Kidneys and ureters: Right renal simple cyst measuring >1.0 cm . Stomach and bowel: Severe colonic diverticulosis. Appendix: No evidence of appendicitis. Intraperitoneal space: Unremarkable. No free air. No significant fluid collection. Vasculature: Calcification of the abdominal aorta and/or iliac arteries consistent with atherosclerotic vessel disease. Lymph nodes: Unremarkable. No enlarged lymph nodes. Urinary bladder: Unremarkable as visualized. Reproductive: Status post hysterectomy. Bones/joints: Moderate to severe multilevel spine degenerative changes including degenerative disc disease, spondylosis and facet degenerative changes. Soft tissues: Unremarkable. CT/CT chest [facility] w/*[id number] IMPRESSION: 1. 2 mm pulmonary nodule posterior segment left upper lobe near the major fissure. Axial series 4, image 22. Followup as discussed below. 2. Heterogeneous thyroid glands most consistent with multinodular goiter. 3. No acute findings. For patients at low risk (minimal or absent history of smoking and of other known risk factors), no routine follow-up is indicated. For patients at high risk (history of smoking or of other known risk factors), consider optional IMPRESSION: 1. 3.1 cm partially calcified left adrenal mass. Correlation with non-emergent MRI is recommended to rule out malignant neoplasm versus benign adrenal adenoma. 2. No acute findings. COMMENTS: Consistent with the [employer]'s Incidental Findings Committee white paper (J Am Constantino Radiol 2018): Any incidental renal lesion less than 1 cm or classified as too small to characterize, or any incidental cystic renal lesion characterized as simple-appearing, is likely benign. No follow-up imaging is recommended for these lesions per consensus recommendations based on imaging criteria.
--- NOTE | 2022-12-26 19:42 | XRR_ITS ---
PROCEDURE INFORMATION: Exam: XR Right Tibia and Fibula Exam date and time: 12/26/2022 8:02 PM Age: 77 years old Clinical indication: Injury or trauma; Fall; Blunt trauma; Lower leg; Right; Additional info: Fall, posterior calf pain TECHNIQUE: Imaging protocol: Radiologic exam of the right tibia and fibula. Views: 2 views. COMPARISON: No relevant prior studies available. FINDINGS: Bones/joints: No fracture or acute osseous abnormality seen about the right tibia or fibula. Knee and ankle joints appear maintained. Degenerative change of the knee. Soft tissues: No significant focal soft tissue abnormality. XR/XR tibia fibula RT 2V [id number] IMPRESSION: No fracture or acute osseous abnormality.
--- NOTE | 2022-12-26 19:42 | CTR_ITS ---
PROCEDURE INFORMATION: Exam: CT Head Without Contrast Exam date and time: 12/26/2022 8:09 PM Age: 77 years old Clinical indication: Injury or trauma; Fall; Concussion/head injury; Without loss of consciousness; Additional info: Fall, headstrike, AMS TECHNIQUE: Imaging protocol: Computed tomography of the head without contrast. Radiation optimization: All CT scans at this facility use at least one of these dose optimization techniques: automated exposure control; mA and/or kV adjustment per patient size (includes targeted exams where dose is matched to clinical indication); or iterative reconstruction. REPORTING DATA: Count of CT and Cardiac NM exams in prior 12 months: This patient has received 0 known CTs and 0 known cardiac nuclear medicine studies in the 12 months prior to the current study. COMPARISON: MR head wo con* [id number] 10/04/2021 9:55 AM RADIATION DOSE METRICS: Total DLP (mGy-cm): 1236.8 FINDINGS: Brain: Atrophic or involutional change along with chronic small-vessel disease change in the periventricular deep white matter region bilaterally. No intracranial hemorrhage or hematoma is seen. No mass effect or shift of midline structures. No findings to indicate territorial ischemic infarct. Cerebral ventricles: Mild ventricular prominence with atrophic change, without significant ventriculomegaly. Paranasal sinuses: Small amount of paranasal mucosal sinus disease bilaterally. Mastoid air cells: Visualized mastoid air cells are well aerated. Bones/joints: Bone windows of the skull show no skull fracture. Soft tissues: Large soft tissue scalp hematoma with soft tissue swelling and soft tissue air density is seen about the right posterior parietal scalp. CT/CT head wo con* [id number] IMPRESSION: 1. Atrophic or involutional change and chronic small-vessel disease change bilaterally. 2. Large soft tissue scalp swelling and hematoma of the right posterior parietal scalp, without identification of underlying skull fracture. 3. No acute intracranial abnormality. No intracranial hemorrhage or hematoma.
--- NOTE | 2022-12-26 19:42 | XRR_ITS ---
PROCEDURE INFORMATION: Exam: XR Right Humerus Exam date and time: 12/26/2022 8:03 PM Age: 77 years old Clinical indication: Injury or trauma; Fall; Blunt trauma (contusions or hematomas); Arm, upper; Right; Additional info: Fall, proximal pain TECHNIQUE: Imaging protocol: Radiologic exam of the right humerus. Views: 2 or more views. COMPARISON: No relevant prior studies available. FINDINGS: Bones/joints: No fracture or acute osseous abnormality is seen about the right humerus. Shoulder and elbow joints appear maintained. Mild degenerative change of the shoulder and AC joint. Soft tissues: No significant focal soft tissue abnormality. XR/[place] [id number] IMPRESSION: No fracture or acute osseous abnormality.
[2022-12-26] MEDS: iohexol 350 mg/mL 500 mL Btl (per mL) IV (19:53)
[2022-12-26 20:50] VITALS: RESP 16
[2022-12-26] MEDS: morphine 4 mg/mL SDV 1 mL IVP ×2 (20:50→21:41)
[2022-12-26 20:53] VITALS: BP 188/75; PULSE 67; RESP 16; O2SAT 98
[2022-12-26] MEDS: ondansetron 2 mg/ML SDV 2 mL 4 MG IVP (21:39)
[2022-12-26 21:41] VITALS: RESP 15
[2022-12-26 23:17] VITALS: BP 123/57; PULSE 69; RESP 18; O2SAT 92
[2022-12-26] MEDS: lidocaine-epi 1% 20 mL INJ INJECTION (23:21)
--- NOTE | 2022-12-26 23:22 | PC.NURSE ---
Combination of sutures and maliha placed to occipital region of head by MD after thorough irrigation. Guaze dressing applied. Pt tolerated well.
[2022-12-26 23:54] VITALS: BP 106/55; PULSE 71; RESP 12; O2SAT 91
== END 2022-12-26 23:57 | disposition home or self-care (01) ==
PROVIDERS: Emergency Provider Emergency Medicine; PCP Family Medicine
DX: S01.01XA Laceration without foreign body of scalp, initial encounter (principal); W19.XXXA Unspecified fall, initial encounter; Y92.481 Parking lot as the place of occurrence of the external cause
CPT/HCPCS: 12035; 70450; 71260; 72125; 73060; 73590; 74177; 96374; 96375; 96376; 99285; J2270; J2405; Q9967

== ENCOUNTER → 2023-01-11 07:58 | Outpatient (BNVA) | payer MEDICARE, MEDICAID, SELFPAY | PROVIDERS: PCP Family Medicine; Visit Provider Nurse Practitioner Family | DX: I96 Gangrene, not elsewhere classified (principal); L98.492 Non-pressure chronic ulcer of skin of other sites with fat layer exposed | CPT/HCPCS: 11042; 99213 ==

== ENCOUNTER 2023-01-16 11:21 | Outpatient (CLI) | payer MEDICARE, MEDICAID, SELFPAY ==
--- NOTE | 2023-01-16 11:30 | MR_ITS ---
WS: [id number] MRI BRAIN WITHOUT CONTRAST HISTORY: R25.9 - Unspecified abnormal involuntary movements COMPARISON: Noncontrast CT head 12/26/2022, MRI 10/04/2021 TECHNIQUE: Diffusion imaging, multiplanar T1, T2 and FLAIR imaging obtained. No evidence for acute infarct or hemorrhage. Villar-white matter differentiation is normal. No acute infarct. Mild progression of moderate small vessel chronic ischemic type changes throughout the white matter. No large territory infarct. Mild cerebral and cerebellar atrophy. Mild atrophy of t he hippocampal formations with prominence of the choroid fissures. Ventricles and extra-axial spaces are normal. No inferior displacement of cerebellar tonsils. The sella turcica and pituitary gland are unremarkabl e. Dural venous sinuses and [place] demonstrate no abnormality on this unenhanced studies. Paranasal sinuses: Clear. Mastoid air cells: Normal. Calvarium and scalp: Intact. MR/MR head wo con* [id number] IMPRESSION: 1. No acute infarct. 2. Mild progression of moderate small vessel ischemic changes in the periventr icular white matter since 2021. 3. Mild bilateral hippocampal formation atrophy. Similar to the prior study.
== END 2023-01-16 11:22 | disposition home or self-care (01) ==
LOC: RAD 11:22
PROVIDERS: PCP Family Medicine; Visit Provider Specialist
DX: G31.84 Mild cognitive impairment of uncertain or unknown etiology (principal); R25.9 Unspecified abnormal involuntary movements; S01.80XA Unspecified open wound of other part of head, initial encounter; X58.XXXA Exposure to other specified factors, initial encounter
CPT/HCPCS: 70551; 97597

== ENCOUNTER → 2023-02-05 12:32 | Outpatient (BNVA) | payer MEDICARE, SELFPAY | PROVIDERS: PCP Family Medicine; Visit Provider Internal Medicine Cardiovascular Disease | DX: R07.89 Other chest pain (principal); E66.01 Morbid (severe) obesity due to excess calories; Z68.32 Body mass index [BMI] 32.0-32.9, adult; H91.90 Unspecified hearing loss, unspecified ear; E11.65 Type 2 diabetes mellitus with hyperglycemia; Z79.84 Long term (current) use of oral hypoglycemic drugs; R25.9 Unspecified abnormal involuntary movements; G31.83 Neurocognitive disorder with Lewy bodies; F02.80 Dementia in other diseases classified elsewhere, unspecified severity, without behavioral disturbance, psychotic disturbance, mood disturbance, and anxiety | CPT/HCPCS: 99214 ==

== ENCOUNTER 2023-02-16 14:27 | Outpatient (CLI) | payer MEDICARE, MEDICAID, SELFPAY ==
--- NOTE | 2023-02-16 14:40 | CTR_ITS ---
PROCEDURE INFORMATION: Exam: CT Chest Without Contrast; Diagnostic Exam date and time: 02/16/2023 3:13 PM Age: 77 years old Clinical indication: Condition or disease; Lung condition and disease; Pulmonary nodule, solitary; Additional info: Solitary pulmonary nodule, PT having mri too TECHNIQUE: Imaging protocol: Diagnostic computed tomography of the chest without contrast. Radiation optimization: All CT scans at this facility use at least one of these dose optimization techniques: automated exposure control; mA and/or kV adjustment per patient size (includes targeted exams where dose is matched to clinical indication); or iterative reconstruction. REPORTING DATA: Count of CT and Cardiac NM exams in prior 12 months: This patient has received 3 known CTs and 0 known cardiac nuclear medicine studies in the 12 months prior to the current study. COMPARISON: CT chest abdpel w/*[id number] 12/26/2022 8:16 PM RADIATION DOSE METRICS: Total DLP (mGy-cm): 312.11 FINDINGS: Thyroid: 3 cm nodule right lobe of the thyroid gland unchanged. Lungs: 2 mm circumscribed perifissural pulmonary nodule left upper lobe, stable. No other pulmonary nodules detected. Minor atelectatic changes left lingula and right middle lobe otherwise lung marrufo are clear. Pleural spaces: Unremarkable. No pneumothorax. No pleural effusion. Heart: Heart is mildly enlarged. Mild calcification of coronary arteries. No significant pericardial effusion. Lymph nodes: Unremarkable. No enlarged lymph nodes. Vasculature: Unremarkable. No aortic aneurysm. Adrenal glands: 3 cm partially calcified left adrenal lesion with density readings consistentd with benign adenoma. Right adrenal gland is not enlarged. Bones/joints: Moderate degenerative changes throughout the mid lower thoracic spine. No acute bony abnormalities. Soft tissues: Unremarkable. CT/CT chest con [id number] IMPRESSION: 1. 2 mm pulmonary nodule left lung, unchanged, likely benign. Follow-up as clinically indicated. 2. 3 cm nodule right lobe of the thyroid gland for which follow-up nonemergent thyroid ultrasound recommended for further assessment. 3. 3 cm partially calcified left adrenal mass with density readings consistent with benign adenoma. For patients at low risk (minimal or absent history of smoking and of other known risk factors), no routine follow-up is indicated. For patients at high risk (history of smoking or of other known risk factors), consider optional CT Chest at 12 months. (Reference: [place]) References: haider Crespo al. Guidelines for Management of Incidental Pulmonary Nodules Detected on CT Images: From the Fleischner Society 2017. Radiology. 2017;284(1):228-243. COMMENTS: 1. Consistent with the [employer]'s Incidental Findings Committee white paper (J Am Constantino Radiol 2017): For any incidental adrenal lesion greater than or equal to 1 cm but less than or equal to 4 cm classified in this report as benign, likely benign, or containing fat (including classification as an adenoma or myelolipoma), no follow-up imaging is recommended per consensus recommendations based on imaging criteria. Further lab evaluation could be pursued if warranted based on clinical findings. 2. Consistent with the [employer]'s Incidental Findings Committee white paper (J Am Constantino Radiol 2015): In patients aged 35 years and older with an incidental thyroid nodule equal to or greater than 1.[address], MRI or extrathyroidal US, further evaluation with dedicated thyroid US is recommended for patients with normal life expectancy and without comorbidities. For smaller nodules without suspicious features, no further evaluation or follow up is recommended.
--- NOTE | 2023-02-16 14:40 | MR_ITS ---
WS: [id number] MRI ABDOMEN WITHOUT CONTRAST. COMPARISON: 01/15/2023 CT Multiplanar, multisequence imaging is performed without contrast. LEFT adrenal gland: There is a well-circumscribed mass associated with the LEFT adrenal gland of vari able signal intensity measuring 2.3 x 2.9 cm. This corresponds to the mass seen on recent CT. There i s marked loss of signal on the opposed phase imaging consistent with an adenoma. Loss of signal is di ffuse throughout. LEFT adrenal mass has been present on prior examinations dating back to 2006. Liver is normal size. Mild diffuse loss of signal throughout the liver consistent with hepatic steato sis on opposed phase imaging. No mass identified. Prior cholecystectomy. Normal spleen. Normal pancre as. Normal common bile duct. Normal RIGHT adrenal gland. No ascites or adenopathy. RIGHT renal cyst m easures 2.6 x 3.5 cm. IMPRESSION: 1. LEFT adrenal adenoma. 2. Prior cholecystectomy. 3. RIGHT renal cyst, 2.6 x 3.5 cm. 4. Mild hepatic steatosis.
== END 2023-02-16 14:28 | disposition home or self-care (01) ==
PROVIDERS: PCP Family Medicine; Visit Provider Family Medicine
DX: R91.1 Solitary pulmonary nodule (principal); E27.8 Other specified disorders of adrenal gland; D35.02 Benign neoplasm of left adrenal gland; Z90.49 Acquired absence of other specified parts of digestive tract; N28.1 Cyst of kidney, acquired; K76.0 Fatty (change of) liver, not elsewhere classified
CPT/HCPCS: 71250; 74181

== ENCOUNTER → 2023-03-12 13:14 | Outpatient (BNVA) | payer MEDICARE, MEDICAID, SELFPAY | PROVIDERS: PCP Family Medicine; Visit Provider Podiatrist Foot & Ankle Surgery | DX: B35.1 Tinea unguium (principal); M20.41 Other hammer toe(s) (acquired), right foot; M20.42 Other hammer toe(s) (acquired), left foot; G62.9 Polyneuropathy, unspecified; I73.9 Peripheral vascular disease, unspecified; L60.0 Ingrowing nail; E11.42 Type 2 diabetes mellitus with diabetic polyneuropathy; Z79.84 Long term (current) use of oral hypoglycemic drugs | CPT/HCPCS: 11056; 11721; 99203 ==

== ENCOUNTER → 2023-03-19 14:17 | Outpatient (BNVA) | payer MEDICARE, MEDICAID, SELFPAY | PROVIDERS: PCP Family Medicine; Visit Provider Specialist | DX: G25.0 Essential tremor (principal); G31.84 Mild cognitive impairment of uncertain or unknown etiology; R29.90 Unspecified symptoms and signs involving the nervous system; F32.A Depression, unspecified; R11.0 Nausea | CPT/HCPCS: 96116; 99214; 99215 ==

== ENCOUNTER → 2023-05-14 07:59 | Outpatient (BNVA) | payer MEDICARE, MEDICAID, SELFPAY | PROVIDERS: PCP Family Medicine; Visit Provider Podiatrist Foot & Ankle Surgery | DX: B35.1 Tinea unguium (principal); M20.41 Other hammer toe(s) (acquired), right foot; M20.42 Other hammer toe(s) (acquired), left foot; G62.9 Polyneuropathy, unspecified; I73.9 Peripheral vascular disease, unspecified; L60.0 Ingrowing nail; L84 Corns and callosities; E11.42 Type 2 diabetes mellitus with diabetic polyneuropathy; Z79.84 Long term (current) use of oral hypoglycemic drugs | CPT/HCPCS: 11055; 11721 ==

== ENCOUNTER → 2023-07-17 13:54 | Outpatient (BNVA) | payer MEDICARE, MEDICAID, SELFPAY | PROVIDERS: PCP Family Medicine; Visit Provider Specialist | DX: G20.A1 Parkinson's disease without dyskinesia, without mention of fluctuations (principal); G31.84 Mild cognitive impairment of uncertain or unknown etiology; G25.0 Essential tremor; F33.1 Major depressive disorder, recurrent, moderate; R11.0 Nausea | CPT/HCPCS: 99215 ==

== ENCOUNTER → 2023-08-06 10:26 | Outpatient (BNVA) | payer MEDICARE, MEDICAID, SELFPAY | PROVIDERS: PCP Family Medicine; Visit Provider Podiatrist Foot & Ankle Surgery | DX: B35.1 Tinea unguium (principal); M20.41 Other hammer toe(s) (acquired), right foot; M20.42 Other hammer toe(s) (acquired), left foot; G62.9 Polyneuropathy, unspecified; I73.9 Peripheral vascular disease, unspecified; L60.0 Ingrowing nail; L84 Corns and callosities; E11.42 Type 2 diabetes mellitus with diabetic polyneuropathy; Z79.84 Long term (current) use of oral hypoglycemic drugs | CPT/HCPCS: 11721 ==

== ENCOUNTER 2023-08-08 09:27 | Outpatient (CLI) | payer MEDICARE, MEDICAID, SELFPAY ==
--- NOTE | 2023-08-08 09:33 | MR_ITS ---
WS: [id number] MRI LUMBAR SPINE NONCONTRAST TECHNIQUE: Sagittal T1, T2 and STIR imaging. Axial T1 and T2 imaging. CLINICAL INFORMATION: SCIATICA COMPARISON: None. FINDINGS: Some images degraded by motion. Mild lumbar curve. No acute compression. Slight retrolisthesis L1 on L2, L2 on L3 and L3 on L4. Sligh t anterolisthesis L4 on L5. L1-L2: Mild annular bulging. Mild facet arthropathy. Spinal canal and foramen are patent. L2-L3: Mild disc bulging with osteophytic ridging. Slight effacement of the ventral thecal sac. Mild RIGHT lateral foraminal narrowing. Moderate facet arthropathy. L3-L4: Slight retrolisthesis. Moderate to severe central canal stenosis due to disc bulging, with fac et arthropathy and ligamentum flavum hypertrophy. Impingement traversing L4 nerve roots bilaterally. Mild bilateral foraminal narrowing. L4-L5: Slight anterolisthesis. Mild disc bulging with moderate central canal stenosis. Impingement tr aversing L5 nerve roots bilaterally. Moderate facet arthropathy with ligamentum flavum hypertrophy. F oramen are patent. L5-S1: Mild disc bulging with osteophytic ridging. Tiny annular fissure. Slight effacement of the leah tral thecal sac. Spinal canal and foramen are patent. Moderate facet arthropathy. 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 Visualized pelvic bony structures: Normal. Paravertebral soft tissues: Normal. Sigmoid diverticulosis. RIGHT renal cyst. IMPRESSION: 1. Moderate to severe central canal stenosis L3-4 due to disc bulge and facet arthropathy with ligam entum flavum hypertrophy 2. Moderate central canal stenosis L4-5 due to disc bulging, with facet arthropathy and ligamentum f lavum hypertrophy. Slight anterolisthesis L4 on L5. 3. Mild central canal stenosis L2-3. 4. Moderate facet arthropathy L3-L5.
== END 2023-08-08 09:28 | disposition home or self-care (01) ==
LOC: RAD 09:29
PROVIDERS: PCP Family Medicine; Visit Provider Family Medicine
DX: M51.16 Intervertebral disc disorders with radiculopathy, lumbar region (principal); M48.061 Spinal stenosis, lumbar region without neurogenic claudication; M47.26 Other spondylosis with radiculopathy, lumbar region
CPT/HCPCS: 72148

== ENCOUNTER → 2023-08-20 11:45 | Outpatient (BNVA) | payer MEDICARE, MEDICAID, SELFPAY | PROVIDERS: PCP Family Medicine; Visit Provider Internal Medicine Cardiovascular Disease | DX: R94.39 Abnormal result of other cardiovascular function study (principal); R07.89 Other chest pain; E78.2 Mixed hyperlipidemia; I11.9 Hypertensive heart disease without heart failure | CPT/HCPCS: 99214 ==

== ENCOUNTER → 2023-10-11 09:47 | Outpatient (BNVA) | payer MEDICARE, MEDICAID, SELFPAY | PROVIDERS: PCP Family Medicine; Visit Provider Podiatrist Foot & Ankle Surgery | DX: B35.1 Tinea unguium (principal); M20.41 Other hammer toe(s) (acquired), right foot; M20.42 Other hammer toe(s) (acquired), left foot; G62.9 Polyneuropathy, unspecified; I73.9 Peripheral vascular disease, unspecified; L60.0 Ingrowing nail; E11.42 Type 2 diabetes mellitus with diabetic polyneuropathy; Z79.84 Long term (current) use of oral hypoglycemic drugs | CPT/HCPCS: 11721 ==

== ENCOUNTER 2023-11-13 12:56 | Outpatient (CLI) | payer MEDICARE, MEDICAID, SELFPAY ==
--- NOTE | 2023-11-13 13:03 | MR_ITS ---
WS: [id number] EXAMINATION: MR hip RT wo con* [id number] ORDER DATE: 11/13/2023 1:05 PM COMPARISON: None. HISTORY: PAIN IN R HIP CONTRAST: None. TECHNIQUE: Coronal STIR of the Pelvis. Coronal proton density, coronal T1, axial T2 fat sat, axial T1 , sagittal T2 fat sat, and sagittal T1 performed of the hip. After contrast, axial T1 fat sat, coron al T1 fat sat, and sagittal T1 fat sat were performed. FINDINGS: Moderate degenerative narrowing both hips. Normal bone marrow signal in the RIGHT femoral head and ne ck. Normal bone marrow signal in the acetabulum. Subchondral cystic change along the pubic symphysis with degenerative arthritis. Moderate joint arthritis sacroiliac joints. No edema. No sacral insuffic iency fractures. Normal bone marrow signal in the bony pelvis. Sigmoid diverticulosis. RIGHT Bartholi n duct cyst measuring 1.3 x 1.1 cm MR/MR hip RT wo con* [id number] IMPRESSION: 1. Moderate generative narrowing RIGHT hip. No acute fractures. Normal bone ma rrow signal in the femoral head and neck. 2. No evidence of avascular necrosis. 3. Normal bone marrow signal in the bony pelvis. 4. Moderate degenerative arthritis sacroiliac joints. No edema. 5. Sigmoid diverticulosis 6. No other acute findings.
== END 2023-11-13 12:57 | disposition home or self-care (01) ==
LOC: RAD 12:57
PROVIDERS: PCP Family Medicine; Visit Provider Internal Medicine
DX: M25.851 Other specified joint disorders, right hip (principal); M25.852 Other specified joint disorders, left hip; M46.1 Sacroiliitis, not elsewhere classified; K57.30 Diverticulosis of large intestine without perforation or abscess without bleeding; M85.68 Other cyst of bone, other site; N75.0 Cyst of Bartholin's gland
CPT/HCPCS: 73721

== ENCOUNTER → 2023-11-21 10:49 | Outpatient (BNVA) | payer MEDICARE, MEDICAID, SELFPAY | PROVIDERS: PCP Family Medicine; Visit Provider Specialist | DX: R41.3 Other amnesia (principal); R29.90 Unspecified symptoms and signs involving the nervous system; G25.0 Essential tremor; F33.1 Major depressive disorder, recurrent, moderate; R11.0 Nausea; G20.A1 Parkinson's disease without dyskinesia, without mention of fluctuations | CPT/HCPCS: 99214 ==

== ENCOUNTER → 2024-02-20 11:20 | Outpatient (BNVA) | payer MEDICARE, MEDICAID, SELFPAY | PROVIDERS: PCP Family Medicine; Visit Provider Internal Medicine Cardiovascular Disease | DX: I44.0 Atrioventricular block, first degree (principal); I49.8 Other specified cardiac arrhythmias; R00.1 Bradycardia, unspecified; R07.9 Chest pain, unspecified; R06.02 Shortness of breath | CPT/HCPCS: 36415; 80048; 83880; 93005 ==

== ENCOUNTER 2024-03-02 17:37 | Emergency (ER) | payer MEDICARE, MEDICAID, SELFPAY ==
[2024-03-02] VITALS (9 sets, daily range): BP systolic 120–146; BP diastolic 59–84; PULSE 61–74; RESP 21; TEMP 36.9; O2SAT 90–96; BMI 39.8
--- NOTE | 2024-03-02 17:43 | XRR_ITS ---
PROCEDURE INFORMATION: Exam: XR Chest Exam date and time: 03/02/2024 6:05 PM Age: 78 years old Clinical indication: Shortness of breath; Patient HX: SOB; Covid +; Cough TECHNIQUE: Imaging protocol: Radiologic exam of the chest. Views: 1 view. COMPARISON: CT chest con [id number] 02/16/2023 3:13 PM FINDINGS: Lungs: Mild bibasilar atelectasis. No consolidative airspace disease. Pleural spaces: Unremarkable. No pleural effusion. No pneumothorax. Heart/Mediastinum: Mild cardiomegaly. Vasculature: Atherosclerotic aortic calcifications. Bones/joints: Unremarkable. XR/XR chest 1V portable [id number] IMPRESSION: No acute cardiopulmonary findings.
--- NOTE | 2024-03-02 17:48 | ECG_ITS ---
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[id number] Requested By: Anusha Chester Order Number: [id number] Marilee MD: CHRIS DUNN Measurements Intervals [facility] Rate: 63 P: -47 ID: [id number] QRS: -16 QRSD: 94 T: 26 QT: 419 QTc: 431 Interpretive Statements SINUS RHYTHM WITH FIRST DEGREE AV BLOCK LOW QRS VOLTAGE IN PRECORDIAL LEADS [QRS DEFLECTION < 1.0 mV IN CHEST LEADS] INCOMPLETE RIGHT BUNDLE BRANCH BLOCK [90+ ms QRS DURATION, TERMINAL R IN V1/V2, 40+ ms S IN I/aVL/V4/V5/V6] POSSIBLE ANTERIOR MYOCARDIAL INFARCTION , PROBABLY OLD [30 ms Q WAVE IN V3/V4, OR R < 0.2 mV IN V4] Compared to ECG 02/20/2024 11:23:30 Low QRS voltage now present Incomplete right bundle-branch block now present Myocardial infarct finding now present Sinus bradycardia no longer present Sinus arrhythmia no longer present Indeterminate axis no longer present T-wave abnormality no longer present Electronically Signed On 03-02-2024 18:42:53 CDT by CHRIS DUNN [id number]
[2024-03-02 17:58] LABS: Basophils % 0.2 %; Eosinophils # 0.1 10^3/uL (0.0-0.8); Eosinophils % 2.2 %; Hematocrit 30.8 % (36-47); Lymphocytes # 1.8 10^3/uL (0.8-4.8); Mean Corpuscular HGB Conc 31.5 g/dL (30-55); Mean Corpuscular Hemoglobin 28.7 pg (27-33); Mean Corpuscular Volume 91.1 fl (85-98); Mean Platelet Volume 9.9 fL (7.4-10.4); Monocytes # 0.4 10^3/uL (0.2-0.9); Monocytes % 9.7 %; Neutrophils % 48.5 %; Nucleated Red Blood Cells % 0 %; Platelet Count 197 10^3/cmm (157-399); Red Blood Count 3.38 10^6/uL (3.85-5.65); Red Cell Distribution Width 16.3 % (12.1-15.1); White Blood Count 4.54 10^3/uL (3.29-11.43)
[2024-03-02] MEDS: dexamethasone 10 mg/mL INJ IVP (18:17)
[2024-03-02 18:23] LABS: Lactic Sepsis W/Reflex 1.8 mmol/L (0.5-2.2)
[2024-03-02 18:25] LABS: Troponin(5th) Baseline 25 ng/L (0-10)
[2024-03-02 18:35] LABS: NT Pro B Type Natriuretic Pept 438 pg/mL (0-450); Procalcitonin 0.09 ng/mL (0-0.5)
[2024-03-02 18:41] LABS: Influenza A NEGATIVE (Negative); Influenza B NEGATIVE (Negative); Respiratory Syncytial Virus Ce NEGATIVE (Negative)
--- NOTE | 2024-03-02 18:41 | ED_ITS ---
HPI - COVID 2 General: Chief Complaint: COVID symptoms Stated Complaint: sob; covid+ Time Seen by Provider: 03/02/24 17:38 Triage information: No fever, cough or shortness of breath . History of Present Illness: 78-year-old female with history of obesi ty, hyperlipidemia tremor and diabetes who presents emergency room with cough and shortness of breath. She was recently diagnosed with COVID. She presents by ambulance from an assisted living. She says she did not really think she needs, but the people at the facility felt that she did. She is not requiring oxygen. She is not tachypneic. She does have a frequent wet cough. No fevers. No altered mental status. No focal motor deficits. No vomiting. She has had some diarrhea. COVID Results: 2 Nasal/Oral Coronavirus 2019 PCR Not detected 12/20/20 16:30 Coronavirus (PCR) Positive (Negative) A 03/02/24 17:55 Related Data Home Medications Medication Instructions Recorded Confirmed lovastatin 40 mg tablet 40 mg PO DAILY 10/14/20 02/20/24 metformin 1,000 mg tablet 1,000 mg PO BID 10/14/20 02/20/24 montelukast 10 mg tablet 10 mg PO DAILY 10/14/20 02/20/24 olmesartan 20 mg tablet 20 mg PO DAILY 10/14/20 02/20/24 pantoprazole 40 mg tablet,delayed 40 mg PO DAILY 10/14/20 02/20/24 release lamotrigine 100 mg tablet 200 mg PO DAILY 07/07/21 02/20/24 metoprolol tartrate 50 mg tablet 50 mg PO BID 07/07/21 02/20/24 mecobalamin (vitamin B12) 1,000 1,000 mcg sublingual DAILY 02/05/23 02/20/24 mcg disintegrating tablet,sublingual tramadol 100 mg tablet 50 mg PO Q6H PRN 02/05/23 02/20/24 carbidopa 25 mg-levodopa 100 mg 1 tab PO TID 02/20/24 02/20/24 tablet hydrocodone 5 mg-acetaminophen 325 1 tab PO Q8H PRN 02/20/24 02/20/24 mg tablet loperamide 2 mg capsule 2 mg PO Q4H PRN 02/20/24 02/20/24 (Anti-Diarrheal (loperamide)) ondansetron 4 mg disintegrating 4 mg PO Q8H 02/20/24 02/20/24 tablet Previous Rx's Medication Instructions Recorded albuterol sulfate 90 mcg/actuation 2 puff inhalation Q6H PRN 12/20/20 aerosol inhaler (ProAir HFA) shortness of breath or wheezing #8.5 grams albuterol sulfate 2.5 mg/3 mL 2.5 mg (3 mL) inhalation Q6H PRN 12/29/20 (0.083 %) solution for nebulization shortness of breath or wheezing #75 mL galantamine 8 mg tablet 8 mg PO BID 30 days #60 tabs 12/18/22 DME: Walker #1 ea 01/05/23 citalopram 40 mg tablet 40 mg PO DAILY #60 tabs 08/18/23 isosorbide mononitrate 30 mg 30 mg PO DAILY #30 tabs 08/20/23 tablet,extended release 24 hr nitroglycerin 0.4 mg sublingual 0.4 mg sublingual Q5M PRN chest 08/20/23 tablet pain 30 days #30 tabs quetiapine 25 mg tablet (Seroquel) 25 mg PO BID #60 tabs 11/10/23 benzonatate 200 mg capsule 200 mg PO TID PRN cough #30 caps 03/02/24 dexamethasone 6 mg tablet 6 mg PO DAILY 5 days #5 tabs 03/02/24 nirmatrelvir 300 mg (150 mg See Rx Instructions PO .COMPLEX 03/02/24 x2)-ritonavir 100 mg tablet,dose #30 ea pack (Paxlovid) Allergies Allergy/AdvReac Type Severity Reaction Status Date / Time duloxetine Allergy VOMITING Verified 03/02/24 17:46 Sulfa (Sulfonamide Allergy UNKNOWN Verified 03/02/24 17:46 Antibiotics) sulfamethoxazole Allergy UNKNOWN Verified 03/02/24 17:46 [From ] trimethoprim [From ] Allergy UNKNOWN Verified 03/02/24 17:46 Review of Systems 2 Narrative: Constitutional symptoms: Negative except as documented in HPI. Skin symptoms: Negative except as documented in HPI. Eye symptoms: Negative except as documented in HPI. ENMT symptoms: Negative except as documented in HPI. Respiratory symptoms: Negative except as documented in HPI. Cardiovascular symptoms: Negative except as documented in HPI. Gastrointestinal symptoms: Negative except as documented in HPI. Genitourinary symptoms: Negative except as documented in HPI. Musculoskeletal symptoms: Negative except as documented in HPI. Neurologic symptoms: Negative except as documented in HPI. Psychiatric symptoms: Negative except as documented in HPI. Endocrine symptoms: Negative except as documented in HPI. PFSH ED 2 PFSH: Medical History History of cystocele Morbid obesity Hemorrhagic diarrhea Rectal bleeding History of rectocele Chest pain Hyperlipemia Depression Essential tremor Sleep apnea Diabetes mellitus Diastolic dysfunction Surgical History History of rectal surgery Hx of shoulder surgery History of bladder suspension procedure Hx of cataract extraction History of knee replacement Hx of hysterectomy Hx of cholecystectomy Hx of tonsillectomy Family History Family/Other No problems noted. Father CAD (coronary artery disease), Onset Age: 70 Diabetes Mother CAD (coronary artery disease), Onset Age: 60 Grandmother Chronic kidney disease (CKD) Son Lung disease Denies family history of Clotting disorder Dementia Suicide Anesthesia complication Bleeding disorder Cancer Stroke Social History Smoking and tobacco/nicotine status: former use of tobacco/nicotine Quit status (tobacco/nicotine): has quit using Year quit tobacco: 1984 Former quit date comment: 1 PPD X 15 YEARS Alcohol intake: current Alcohol intake frequency: holidays/special occasions only Substance/Drug Use: never Female Reproductive History: Spontaneous abortions: No Physical Exam 2 Narrative: EXAM NARRATIVE: General: Alert, no acute distress. Skin: Warm, dry. Head: Normocephalic, atraumatic. Neck: Supple, trachea midline. Eye: Extraocular movements are intact. Ears, nose, mouth and throat: mucosa moist. Cardiovascular: Regular, Normal peripheral perfusion. Respiratory: Mildly tachypneic, mild rhonchi, frequent cough, respirations are non-labored, breath sounds are equal, Symmetrical chest wall expansion. Gastrointestinal: Soft, Nontender, Non distended Musculoskeletal: Normal ROM, no deformity. Neurological: Alert and oriented, No focal neurological deficit observed. Psychiatric: Cooperative, appropriate mood & affect. Course 2 Vital Signs: Vital signs: Vital Signs Temperature 98.4 F 03/02/24 17:39 Pulse Rate 69 03/02/24 20:00 Respiratory Rate 21 H 03/02/24 18:00 Blood Pressure 137/73 03/02/24 20:00 Pulse Oximetry 94 03/02/24 20:00 Oxygen Delivery Me thod Room Air 03/02/24 18:00 MDM - COVID Medical Decision Making Differential diagnosis for patient with shortness of breath includes but is not limited to and based on the above HPI, review of systems and physical exam: Pneumonia. Bronchitis. Asthma or COPD with acute exacerbation. Acute coronary syndrome / [place]. Pulmonary embolism. Anxiety. Congestive heart failure. Viral infections including influenza and Covid-19. Atrial fibrillation. Anxiety. Pleural effusion. Pneumothorax. Workup: Lab work, chest X-ray and EKG ordered to evaluate, rule in and rule out above pathologies EKG: Time 1748. Rate 63. Normal sinus rhythm, No ST-T changes, no ectopy, first degree AV Block, right bundle branch block, EP Interpretation. This was reviewed and interpreted by myself the ER physician at 1751. Chest x-ray: No acute process. No infiltrate. No pneumothorax. This was reviewed and interpreted by myself the ER physician. Lab Review: Laboratory results were reviewed and interpreted by myself the emergency room physician. Patient is COVID-positive. Confirmed here. Stable anemia at 9.7. BUN and creatinine are 20 and 1.4 which is near her baseline. She does have some chronic kidney disease. AB.4 with a sat of 96% on room air. I reviewed the patient's medical record. Reexamination: Patient remained stable. No increased work of breathing. No altered mental status. No focal motor deficits. Assessment and plan: COVID-19 ?Home with Decadron and Paxlovid and cough medicine. She is not requiring any oxygen. - Discharged home - Discussed findings and plan with patient. Answered any questions. - All laboratory values were reviewed and interpreted personally by myself, the ER physician - All imaging was reviewed and interpreted personally by myself, the ER physician. - Evaluation and treatment of this problem were appropriate in the emergency setting Lab Data 03/02/24 17:50 03/02/24 17:50 Radiology Impressions Chest X-Ray 03/02/24 17:43 IMPRESSION: No acute cardiopulmonary findings. Laboratory Results WBC 4.54 10^3/uL (3.29-11.43) 03/02/24 17:50 RBC 3.38 10^6/uL (3.85-5.65) L 03/02/24 17:50 Hgb 9.70 g/dL (11.27-16.99) L 03/02/24 17:50 Hct 30.8 % (36-47) L 03/02/24 17:50 MCV 91.1 fl (85-98) 03/02/24 17:50 MCH 28.7 pg (27-33) 03/02/24 17:50 MCHC 31.5 g/dL (30-55) 03/02/24 17:50 RDW 16.3 % (12.1-15.1) H 03/02/24 17:50 Plt Count 197 10^3/cmm (157-399) 03/02/24 17:50 MPV 9.9 fL (7.4-10.4) 03/02/24 17:50 Neut % (Auto) 48.5 % 03/02/24 17:50 Lymph % (Auto) 39.0 % 03/02/24 17:50 [place] % (Auto) 9.7 % 03/02/24 17:50 Eos % (Auto) 2.2 % 03/02/24 17:50 Baso % (Auto) 0.2 % 03/02/24 17:50 Neut # (Auto) 2.20 10^3/uL (1.8-7.7) 03/02/24 17:50 Lymph # (Auto) 1.8 10^3/uL (0.8-4.8) 03/02/24 17:50 [place] # (Auto) 0.4 10^3/uL (0.2-0.9) 03/02/24 17:50 Eos # (Auto) 0.1 10^3/uL (0.0-0.8) 03/02/24 17:50 Baso # (Auto) 0.0 10^3/uL (0.0-0.1) 03/02/24 17:50 Nucleated RBC % (auto) 0 % 03/02/24 17:50 Nucleated RBCs # 0.0 /100WBC 03/02/24 17:50 Specimen Type Arterial 03/02/24 19:42 Sample Site Brachial, right 03/02/24 19:42 ABG pH 7.43 (7.35-7.45) 03/02/24 19:42 ABG pCO2 39.8 mmHg (35-45) 03/02/24 19:42 ABG pO2 83.3 mmHg (80.0-100.0) 03/02/24 19:42 ABG PO2/FiO2 Ratio 396 03/02/24 19:42 ABG HCO3 26.4 mmol/L (22-26) H 03/02/24 19:42 ABG O2 Saturation 95.7 03/02/24 19:42 ABG Base Excess 1.9 mmol/L (-2.0-2.0) 03/02/24 19:42 Jim Test N/a 03/02/24 19:42 A-a O2 Gradient 2.3 mmHg (5-10) L 03/02/24 19:42 Hematocrit 30.8 % (37-47) L 03/02/24 19:42 Hgb O2 Saturation 94.6 % (95-100) L 03/02/24 19:42 Carboxyhemoglobin 0.6 %THgb (0.4-20.1) 03/02/24 19:42 Methemoglobin 0.6 % (0.4-1.5) 03/02/24 19:42 Total Hemoglobin 10.1 g/dL (12-16) L 03/02/24 19:42 Sodium 141.0 mmol/L (131-143) 03/02/24 19:42 Potassium 4.0 mmol/L (3.5-5.0) 03/02/24 19:42 Glucose 97.0 mg/dL (70-115) 03/02/24 19:42 Ionized Calcium 1.2 mmol/L (1.1-1.4) 03/02/24 19:42 O2 Delivery Device None 03/02/24 19:42 FiO2 21.0 % 03/02/24 19:42 Personnel And Payroll Technician ID Butch 03/02/24 19:42 Sodium 140 mmol/L (136-145) 03/02/24 17:50 Potassium 4.1 mmol/L (3.5-5.1) 03/02/24 17:50 Chloride 102 mmol/L (98-107) 03/02/24 17:50 Carbon Dioxide 26 mmol/L (22-29) 03/02/24 17:50 Anion Gap 16.1 (5-19) 03/02/24 17:50 BUN 20 mg/dL (8-23) 03/02/24 17:50 Creatinine 1.4 mg/dL (0.5-0.9) H 03/02/24 17:50 GFR Calculation Not Reportable 03/02/24 17:50 Glucose 94 mg/dL (65-115) 03/02/24 17:50 Calculated Osmolality 292 mOsm/kg (285-295) 03/02/24 17:50 Lactic Acid 1.8 mmol/L (0.5-2.2) 03/02/24 17:50 Calcium 8.6 mg/dL (8.5-10.5) 03/02/24 17:50 Total Bilirubin 0.5 mg/dL (0.15-1.2) 03/02/24 17:50 AST 16 U/L (0-32) 03/02/24 17:50 ALT < 5 U/L (0-33) 03/02/24 17:50 Alkaline Phosphatase 70 U/L (35-105) 03/02/24 17:50 Troponin T Baseline 25 ng/L (0-10) H 03/02/24 17:50 Troponin T 120 Minute 23.82 ng/L (0-10) H 03/02/24 19:02 Delta Troponin T -1.18 ABS# (0-10) L 03/02/24 19:02 C-Reactive Protein 39.6 mg/L (0.0-4.9) H 03/02/24 17:50 NT-Pro-B Natriuret Pep 438 pg/mL (0-450) 03/02/24 17:50 Total Protein 6.6 g/dL (6.6-8.7) 03/02/24 17:50 Albumin 3.9 g/dL (3.5-5.2) 03/02/24 17:50 Globulin 2.7 g/dL (1.3-4.6) 03/02/24 17:50 Procalcitonin 0.09 ng/mL (0-0.5) 03/02/24 17:50 Coronavirus (PCR) Positive (Negative) A 03/02/24 17:55 Influenza A (PCR) Negative (Negative) 03/02/24 17:55 Influenza Type B (PCR) Negative (Negative) 03/02/24 17:55 RSV (PCR) Negative (Negative) 03/02/24 17:55 2 Nasal/Oral Coronavirus 2019 PCR Not detected 12/20/20 16:30 Coronavirus (PCR) Positive (Negative) A 03/02/24 17:55 All radiology interpretation(s) finalized by discharge Discharge Plan Discharge Patient Disposition: Home Clinical Impression: COVID-19 Condition: Stable Prescriptions: New dexamethasone 6 mg tablet 6 mg PO DAILY 5 Days Qty: 5 0RF Paxlovid 300 mg (150 mg x 2)-100 mg tablets,dose pack See Rx Instructions .ROUTE .COMPLEX Qty: 30 0RF Rx Instructions: take TWO 150 mg tablets of nirmatrelvir with ONE 100 mg tablet of ritonavir twice daily for 5 days benzonatate 200 mg capsule 200 mg PO TID PRN (Reason: cough) Qty: 30 0RF No Action metformin 1,000 mg tablet 1,000 mg PO BID montelukast 10 mg tablet 10 mg PO DAILY olmesartan 20 mg tablet 20 mg PO DAILY pantoprazole 40 mg tablet,delayed release (DR/EC) 40 mg PO DAILY lovastatin 40 mg tablet 40 mg PO DAILY lamotrigine 100 mg tablet 200 mg PO DAILY tramadol 100 mg tablet 50 mg PO Q6H PRN metoprolol tartrate 50 mg tablet 50 mg PO BID albuterol sulfate [ProAir HFA] 90 mcg/actuation HFA aerosol inhaler 2 puff inhalation Q6H PRN (Reason: shortness of breath or wheezing) Qty: 8.5 0RF albuterol sulfate 2.5 mg /3 mL (0.083 %) solution for nebulization 2.5 mg inhalation Q6H PRN (Reason: shortness of breath or wheezing) Qty: 75 0RF galantamine 8 mg tablet 8 mg PO BID 30 Days Qty: 60 3RF Rx Instructions: administer with AM and PM meals mecobalamin (vitamin B12) 1,000 mcg tablet,disintegrating 1,000 mcg sublingual DAILY Rx Instructions: place tablet under tongue and allow to dissolve for at least30 secs before swallowing ondansetron 4 mg tablet,disintegrating 4 mg PO Q8H loperamide [Anti-Diarrheal (loperamide)] 2 mg capsule 2 mg PO Q4H PRN Rx Instructions: administer after each loose stool until symptoms controlled; do not exceed 8 mg per 24 hrs carbidopa-levodopa 25-100 mg tablet 1 tab PO TID hydrocodone-acetaminophen 5-325 mg tablet 1 tab PO Q8H PRN nitroglycerin 0.4 mg tablet, sublingual 0.4 mg sublingual Q5M PRN (Reason: chest pain) 30 Days Qty: 30 3RF Rx Instructions: until response; do not exceed 3 doses per episode isosorbide mononitrate 30 mg tablet extended release 24 hr 30 mg PO DAILY Qty: 30 3RF (DME) DME: Walker Unit See Rx Instructions .Route Qty: 1 0RF Rx Instructions: Wide Wheeled Walker 8 Casters citalopram 40 mg tablet 40 mg PO DAILY Qty: 60 5RF quetiapine [Seroquel] 25 mg tablet 25 mg PO BID Qty: 60 5RF Discharge Orders: Discharge ED (Routine); Ordered 03/02/24 Ordered By: Anusha Rodriguez Referrals: Margo Galindo MD [Primary Care Provider] - Discharge Diet: Usual diet Discharge Activity: Limit activity as instructed Patient Instructions: How to Recover from COVID-19 at Home (ED) Activity Restrictions/Additional Instructions: Please hold your atorvastatin while you are taking Paxlovid. Thank you for choosing [facility] for your healthcare needs today. Please realize this is an emergency room and that we are providing you with a medical screening exam and this may not be complete and all inclusive of all the testing and or work up that you may need to determine your ailment or severity of your illness. You have been screened and evaluated and felt safe for discharge. Health conditions do change or evolve sometimes and as such it is important that you follow up with your Primary Doctor to be re checked, 3-5 days is a general good time frame for follow up. You are always welcome to return to the ED for re assessment if your symptoms are worsening or you have new concerns Coding Level of Care Code ED Buzzle Buffer for Tahira Zamora
[2024-03-02 18:46] LABS: Alanine Aminotransferase < 5 U/L (0-33); Albumin Level 3.9 g/dL (3.5-5.2); Alkaline Phosphatase 70 U/L (35-105); Anion Gap 16.1 (5-19); Aspartate Amino Transferase 16 U/L (0-32); Blood Urea Nitrogen 20 mg/dL (8-23); C Reactive Protein 39.6 mg/L (0.0-4.9); Calcium 8.6 mg/dL (8.5-10.5); Carbon Dioxide 26 mmol/L (22-29); Chloride 102 mmol/L (98-107); Creatinine Clr Calc Pharmacy 38.3898; Globulin 2.7 g/dL (1.3-4.6); Glucose 94 mg/dL (65-115); Osmolality Calculated 292 mOsm/kg (285-295); Potassium 4.1 mmol/L (3.5-5.1); Sodium 140 mmol/L (136-145); Total Bilirubin 0.5 mg/dL (0.15-1.2); Total Protein 6.6 g/dL (6.6-8.7)
[2024-03-02 19:08] LABS: Covid PCR Positive (Negative)
--- NOTE | 2024-03-02 19:48 | ECG_ITS ---
[facility] Test Date: 2024-03-02 Pat Name: Nisha Galindo Department: Room: Gender: Female Pull Over: : 1945 Requested By: Anusha Chester Order Number: [id number] Marilee MD: Brock Blair M.D. Measurements Intervals [place] Rate: 59 P: 0 [place]: 0 QRS: -22 QRSD: 97 T: -15 QT: 415 QTc: 412 Interpretive Statements SINUS BRADYCARDIA LOW QRS VOLTAGE IN PRECORDIAL LEADS [QRS DEFLECTION < 1.0 mV IN CHEST LEADS] INCOMPLETE RIGHT BUNDLE BRANCH BLOCK [90+ ms QRS DURATION, TERMINAL R IN V1/V2, 40+ ms S IN I/aVL/V4/V5/V6] POSSIBLE ANTERIOR MYOCARDIAL INFARCTION , PROBABLY OLD [30 ms Q WAVE IN V3/V4, OR R < 0.2 mV IN V4] Compared to ECG 03/02/2024 17:48:21 First degree AV block no longer present Myocardial infarct finding still present Electronically Signed On 03-03-2024 11:19:22 CDT by Brock Blair M.D. [id number]
[2024-03-02 19:50] LABS: Troponin 5 2HR 23.82 ng/L (0-10); Troponin 5 2HR Delta -1.18 ABS# (0-10)
[2024-03-02 19:53] LABS: ABG PCO2 39.8 mmHg (35-45); ABG PH Result 7.43 (7.35-7.45); Alveolar-Arterial Oxygen Gradi 2.3 mmHg (5-10); Arterial Blood Gas Hematocrit 30.8 % (37-47); Base Excess ABG 1.9 mmol/L (-2.0-2.0); Blood Gas Operator Identificat SAM; Blood Gas Sample Site Brachial, right; Blood Gas Sample Type Arterial; Carboxyhemoglobin 0.6 %THgb (0.4-20.1); HCO3 ABG 26.4 mmol/L (22-26); HGB O2 Sat 94.6 % (95-100); Ionized Calcium Level - ABG 1.2 mmol/L (1.1-1.4); Methemoglobin 0.6 % (0.4-1.5); Oxygen Saturation ABG 95.7; PO2 ABG 83.3 mmHg (80.0-100.0); PO2 FiO2 Ratio Arterial Blood 396; Total Hemoglobin 10.1 g/dL (12-16)
== END 2024-03-02 21:54 | disposition home or self-care (01) ==
PROVIDERS: Emergency Provider Emergency Medicine; PCP Family Medicine
DX: U07.1 COVID-19 (principal); Z79.84 Long term (current) use of oral hypoglycemic drugs; I45.10 Unspecified right bundle-branch block; I44.0 Atrioventricular block, first degree; Z87.891 Personal history of nicotine dependence; E78.5 Hyperlipidemia, unspecified; E11.9 Type 2 diabetes mellitus without complications
CPT/HCPCS: 0241U; 36415; 36600; 71045; 80051; 80053; 82330; 82805; 83605; 83880; 84145; 84484; 85025; 86140; 93005; 96374; 99285; J1100

== ENCOUNTER 2024-03-27 19:18 | Emergency (ER) | payer MEDICARE, MEDICAID, SELFPAY ==
--- NOTE | 2024-03-27 19:20 | ECG_ITS ---
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 Measurements Intervals [place] Rate: 70 P: 0 [place]: 0 QRS: -19 QRSD: 96 T: 22 QT: 416 QTc: 452 Interpretive Statements ATRIAL FIBRILLATION WITH ABERRANT CONDUCTION OR VENTRICULAR PREMATURE COMPLEXES LOW QRS VOLTAGE IN PRECORDIAL LEADS [QRS DEFLECTION < 1.0 mV IN CHEST LEADS] INCOMPLETE RIGHT BUNDLE BRANCH BLOCK [90+ ms QRS DURATION, TERMINAL R IN V1/V2, 40+ ms S IN I/aVL/V4/V5/V6] MINIMAL ST DEPRESSION [0.025+ mV ST DEPRESSION] ABNORMAL RHYTHM ECG.Compared to ECG 03/02/2024 19:48:19 Ventricular premature complex(es) now present.Aberrant conduction of supraventricular beat(s) now present.ST (T wave) deviation now present,Sinus bradycardia no longer present Myocardial infarct finding no longer present Electronically Signed On 03-29-2024 20:46:40 CDT by Char Mendez M.D. [id number]
[2024-03-27 19:22] VITALS: BP 159/82; PULSE 62; RESP 22; TEMP 36.9; O2SAT 95; BMI 40.4
--- NOTE | 2024-03-27 19:33 | ECG_ITS ---
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 Measurements Intervals [place] Rate: 68 P: 84 SD: 305 QRS: 1 QRSD: 93 T: 52 QT: 407 QTc: 433 Interpretive Statements SINUS RHYTHM WITH SINUS ARRHYTHMIA WITH FIRST DEGREE AV BLOCK LOW QRS VOLTAGE IN PRECORDIAL LEADS [QRS DEFLECTION < 1.0 mV IN CHEST LEADS] PATTERN CONSISTENT WITH PULMONARY DISEASE INCOMPLETE RIGHT BUNDLE BRANCH BLOCK [90+ ms QRS DURATION, TERMINAL R IN V1/V2, 40+ ms S IN I/aVL/V4/V5/V6] MINIMAL ST DEPRESSION [0.025+ mV ST DEPRESSION].Compared to ECG 03/27/2024 19:20:33.First degree AV block now present.Atrial fibrillation no longer present Ventricular premature complex(es) no longer present.Aberrant conduction of supraventricular beat(s) no longer present. ST (T wave) deviation still present Electronically Signed On 03-29-2024 20:47:20 CDT by Char Mendez M.D. [id number]
[2024-03-27 19:57] LABS: Bilirubin Urine Negative (Negative); Blood Urine Negative (Negative); Glucose Urine UA Negative (Normal); Ketones Urine Negative (Negative); Leukocyte Esterase Urine 1+ (Negative); Nitrate Urine Negative (Negative); Protein Urine Negative (Negative); Specific Gravity, Urine 1.013 (1.005-1.030); Urine Appearance Clear (CLEAR); Urine Color Yellow (Yellow)
[2024-03-27 19:57] LABS: Basophils % 0.4 %; Eosinophils # 0.1 10^3/uL (0.0-0.8); Eosinophils % 2.2 %; Hematocrit 30.9 % (36-47); Lymphocytes # 2.1 10^3/uL (0.8-4.8); Lymphocytes % 37.9 %; Mean Corpuscular HGB Conc 30.1 g/dL (30-55); Mean Corpuscular Volume 96.3 fl (85-98); Mean Platelet Volume 10.3 fL (7.4-10.4); Monocytes # 0.5 10^3/uL (0.2-0.9); Monocytes % 9.8 %; Neutrophils # 2.62 10^3/uL (1.8-7.7); Neutrophils % 48.2 %; Nucleated Red Blood Cells % 0 %; Platelet Count 209 10^3/cmm (157-399); Red Blood Count 3.21 10^6/uL (3.85-5.65); Red Cell Distribution Width 16.2 % (12.1-15.1); White Blood Count 5.43 10^3/uL (3.29-11.43)
[2024-03-27 20:02] LABS: Add Urine Microscopic? YES; Bacteria Urine 1+ /hpf; RBC Urine 0-2 /hpf (0-2); Squamous Epithelial Cell Urine 0-5 /hpf (0-5)
[2024-03-27 20:03] VITALS: BP 142/82; PULSE 71; RESP 20; O2SAT 93
[2024-03-27 20:05] LABS: Add Urine Culture? No
--- NOTE | 2024-03-27 20:11 | W.ED.ARRPALP ---
HPI - Arrhythmia/Palpitations General: Chief Complaint: Arrhythmia/Palpitations Stated Complaint: Low Heart Beat\Feet Swelling Time Seen by Provider: 03/27/24 19:38 History of Present Illness: Patient presents to the right lower extremity swelling, shortness of breath and a low heart rate. He is in assisted living and he been checking her vital signs regularly said her heartbeat has been low as 45 bpm, she did see Dr. Mendez last visit about a month ago, she said they called his office and he told her to come in to be evaluated. Patient does have bilateral lower extremity edema, she said he has been up on the fence about wanting to put her on a diuretic. Related Data Home Medications Medication Instructions Recorded Confirmed lovastatin 40 mg tablet 40 mg PO DAILY 10/14/20 02/20/24 metformin 1,000 mg tablet 1,000 mg PO BID 10/14/20 02/20/24 montelukast 10 mg tablet 10 mg PO DAILY 10/14/20 02/20/24 olmesartan 20 mg tablet 20 mg PO DAILY 10/14/20 02/20/24 pantoprazole 40 mg tablet,delayed 40 mg PO DAILY 10/14/20 02/20/24 release lamotrigine 100 mg tablet 200 mg PO DAILY 07/07/21 02/20/24 metoprolol tartrate 50 mg tablet 50 mg PO BID 07/07/21 02/20/24 mecobalamin (vitamin B12) 1,000 1,000 mcg sublingual DAILY 02/05/23 02/20/24 mcg disintegrating tablet,sublingual tramadol 100 mg tablet 50 mg PO Q6H PRN 02/05/23 02/20/24 carbidopa 25 mg-levodopa 100 mg 1 tab PO TID 02/20/24 02/20/24 tablet hydrocodone 5 mg-acetaminophen 325 1 tab PO Q8H PRN 02/20/24 02/20/24 mg tablet loperamide 2 mg capsule 2 mg PO Q4H PRN 02/20/24 02/20/24 (Anti-Diarrheal (loperamide)) ondansetron 4 mg disintegrating 4 mg PO Q8H 02/20/24 02/20/24 tablet Previous Rx's Medication Instructions Recorded albuterol sulfate 90 mcg/actuation 2 puff inhalation Q6H PRN 12/20/20 aerosol inhaler (ProAir HFA) shortness of breath or wheezing #8.5 grams albuterol sulfate 2.5 mg/3 mL 2.5 mg (3 mL) inhalation Q6H PRN 12/29/20 (0.083 %) solution for nebulization shortness of breath or wheezing #75 mL galantamine 8 mg tablet 8 mg PO BID 30 days #60 tabs 12/18/22 DME: Walker #1 ea 01/05/23 citalopram 40 mg tablet 40 mg PO DAILY #60 tabs 08/18/23 isosorbide mononitrate 30 mg 30 mg PO DAILY #30 tabs 08/20/23 tablet,extended release 24 hr nitroglycerin 0.4 mg sublingual 0.4 mg sublingual Q5M PRN chest 08/20/23 tablet pain 30 days #30 tabs quetiapine 25 mg tablet (Seroquel) 25 mg PO BID #60 tabs 11/10/23 benzonatate 200 mg capsule 200 mg PO TID PRN cough #30 caps 03/02/24 nirmatrelvir 300 mg (150 mg See Rx Instructions PO .COMPLEX 03/02/24 x2)-ritonavir 100 mg tablet,dose #30 ea pack (Paxlovid) furosemide 40 mg tablet (Lasix) 40 mg PO DAILY #5 tabs 03/27/24 Allergies Allergy/AdvReac Type Severity Reaction Status Date / Time duloxetine Allergy VOMITING Verified 03/02/24 17:46 Sulfa (Sulfonamide Allergy UNKNOWN Verified 03/02/24 17:46 Antibiotics) sulfamethoxazole Allergy UNKNOWN Verified 03/02/24 17:46 [From Septra] trimethoprim [From Febra] Allergy UNKNOWN Verified 03/02/24 17:46 Review of Systems General: Reports: 10 or more systems reviewed and unremarkable except in HPI and below PFSH ED PFSH: Medical History History of cystocele Morbid obesity Hemorrhagic diarrhea Rectal bleeding History of rectocele Chest pain Hyperlipemia Depression Essential tremor Sleep apnea Diabetes mellitus Diastolic dysfunction Surgical History History of rectal surgery Hx of shoulder surgery History of bladder suspension procedure Hx of cataract extraction History of knee replacement Hx of hysterectomy Hx of cholecystectomy Hx of tonsillectomy Family History Family/Other No problems noted. Father CAD (coronary artery disease), Onset Age: 70 Diabetes Mother CAD (coronary artery disease), Onset Age: 60 Grandmother Chronic kidney disease (CKD) Son Lung disease Denies family history of Clotting disorder Dementia Suicide Anesthesia complication Bleeding disorder Cancer Stroke Social History Smoking and tobacco/nicotine status: former use of tobacco/nicotine Quit status (tobacco/nicotine): has quit using Year quit tobacco: 1984 Former quit date comment: 1 PPD X 15 YEARS Alcohol intake: current Alcohol intake frequency: holidays/special occasions only Substance/Drug Use: never Female Reproductive History: Spontaneous abortions: No Physical Exam Const: COMMON NORMALS: no acute distress, average body habitus, patient oriented x3, no limitations, healthy appearing, alert and well nourished HENMT: COMMON NORMALS: normocephalic, atraumatic, hearing grossly normal bilaterally, external ears normal, Normal external nose present and moist oral mucous membranes HEAD & SCALP: normocephalic and atraumatic NOSE: Normal external nose present EXTERNAL EAR: Yes external ears normal Neck/C-Spine: COMMON NORMALS: no JVD Chest: COMMONS NORMALS: normal inspection of the chest and normal palpation of entire chest wall Resp: COMMON NORMALS: normal respiratory effort, No retractions, No use of accessory muscles and clear to auscultation bilaterally AUSCULTATION: clear to auscultation bilaterally Cardio: COMMON NORMALS: no JVD, regular rate, regular rhythm, S1 normal heart sound present, S2 normal heart sound present, No gallops present (Cardio), No clicks present (Cardio), No murmurs present (Cardio) and No rub (Cardio) RATE: regular rate RHYTHM: regular rhythm HEART SOUNDS: S1 normal heart sound present and S2 normal heart sound present GI: COMMON NORMALS: Normal to inspection, nondistended, normoactive bowel sounds present, Soft to palpation, non-tender, No hepatosplenomegaly present and no masses PALPATION: Yes Soft to palpation and Yes No hepatosplenomegaly present Extremity: NARRATIVE EXTREMITY EXAM: 2+ pitting edema bilateral lower extremities Neuro: COMMON NORMALS: patient oriented x3 SENSORIUM/ORIENTATION: Yes alert Course Vital Signs: Vital signs: Vital Signs Temperature 98.5 F 03/27/24 19:22 Pulse Rate 64 03/27/24 22:35 Respiratory Rate 17 03/27/24 22:35 Blood Pressure 146/66 03/27/24 22:35 Pulse Oximetry 91 03/27/24 22:35 Oxygen Delivery Me thod Room Air 03/27/24 21:39 MDM - Arrhythmia/Palpitations Medical Decision Making Lab work was obtained as well as chest x-ray, all essentially all unremarkable BNP was mildly elevated, patient will be put on 20 mg Lasix daily and discharged back to her [facility]. Medical Records I reviewed the patient's medical records. Lab Data I reviewed the patient's lab results. 03/27/24 19:50 03/27/24 19:50 Radiology Impressions Chest X-Ray 03/27/24 20:20 IMPRESSION: No acute findings. Laboratory Results WBC 5.43 10^3/uL (3.29-11.43) 03/27/24 19:50 RBC 3.21 10^6/uL (3.85-5.65) L 03/27/24 19:50 Hgb 9.30 g/dL (11.27-16.99) L 03/27/24 19:50 Hct 30.9 % (36-47) L 03/27/24 19:50 MCV 96.3 fl (85-98) 03/27/24 19:50 MCH 29.0 pg (27-33) 03/27/24 19:50 MCHC 30.1 g/dL (30-55) 03/27/24 19:50 RDW 16.2 % (12.1-15.1) H 03/27/24 19:50 Plt Count 209 10^3/cmm (157-399) 03/27/24 19:50 MPV 10.3 fL (7.4-10.4) 03/27/24 19:50 Neut % (Auto) 48.2 % 03/27/24 19:50 Lymph % (Auto) 37.9 % 03/27/24 19:50 [place] % (Auto) 9.8 % 03/27/24 19:50 Eos % (Auto) 2.2 % 03/27/24 19:50 Baso % (Auto) 0.4 % 03/27/24 19:50 Neut # (Auto) 2.62 10^3/uL (1.8-7.7) 03/27/24 19:50 Lymph # (Auto) 2.1 10^3/uL (0.8-4.8) 03/27/24 19:50 [place] # (Auto) 0.5 10^3/uL (0.2-0.9) 03/27/24 19:50 Eos # (Auto) 0.1 10^3/uL (0.0-0.8) 03/27/24 19:50 Baso # (Auto) 0.0 10^3/uL (0.0-0.1) 03/27/24 19:50 Nucleated RBC % (auto) 0 % 03/27/24 19:50 Nucleated RBCs # 0.0 /100WBC 03/27/24 19:50 Sodium 135 mmol/L (136-145) L 03/27/24 19:50 Potassium 4.5 mmol/L (3.5-5.1) 03/27/24 19:50 Chloride 99 mmol/L (98-107) 03/27/24 19:50 Carbon Dioxide 27 mmol/L (22-29) 03/27/24 19:50 Anion Gap 13.5 (5-19) 03/27/24 19:50 BUN 17 mg/dL (8-23) 03/27/24 19:50 Creatinine 1.2 mg/dL (0.5-0.9) H 03/27/24 19:50 GFR Calculation Not Reportable 03/27/24 19:50 Glucose 95 mg/dL (65-115) 03/27/24 19:50 Calculated Osmolality 281 mOsm/kg (285-295) L 03/27/24 19:50 Calcium 9.0 mg/dL (8.5-10.5) 03/27/24 19:50 Magnesium 2.0 mg/dL (1.7-2.3) 03/27/24 19:50 Total Bilirubin 0.4 mg/dL (0.15-1.2) 03/27/24 19:50 AST 8 U/L (0-32) 03/27/24 19:50 ALT < 5 U/L (0-33) 03/27/24 19:50 Alkaline Phosphatase 131 U/L (35-105) H 03/27/24 19:50 Troponin T Baseline 17 ng/L (0-10) H 03/27/24 19:50 Troponin T 120 Minute 16.14 ng/L (0-10) H 03/27/24 22:05 Delta Troponin T -0.86 ABS# (0-10) L 03/27/24 22:05 NT-Pro-B Natriuret Pep 497 pg/mL (0-450) H 03/27/24 19:50 Total Protein 7.4 g/dL (6.6-8.7) 03/27/24 19:50 Albumin 3.7 g/dL (3.5-5.2) 03/27/24 19:50 Globulin 3.7 g/dL (1.3-4.6) 03/27/24 19:50 Urine Color Yellow (Yellow) 03/27/24 19:46 Urine Appearance Clear (CLEAR) 03/27/24 19:46 Urine pH 7.0 (5-7) 03/27/24 19:46 Ur Specific [place] 1.013 (1.005-1.030) 03/27/24 19:46 Urine Protein Negative (Negative) 03/27/24 19:46 Urine Glucose (UA) Negative (Normal) 03/27/24 19:46 Urine Ketones Negative (Negative) 03/27/24 19:46 Urine Blood Negative (Negative) 03/27/24 19:46 Urine Nitrate Negative (Negative) 03/27/24 19:46 Urine Bilirubin Negative (Negative) 03/27/24 19:46 Urine Urobilinogen 1.0 mg/dL (Negative) 03/27/24 19:46 Ur Leukocyte Esterase 1+ (Negative) A 03/27/24 19:46 Urine RBC 0-2 /hpf (0-2) 03/27/24 19:46 Urine WBC 6-10 /hpf (0-5) 03/27/24 19:46 Ur Squamous Epith Cells 0-5 /hpf (0-5) 03/27/24 19:46 Amorphous Sediment Not Reportable 03/27/24 19:46 Urine Bacteria 1+ /hpf (NONE) H 03/27/24 19:46 Hyaline Casts 0.40 /lpf 03/27/24 19:46 All radiology interpretation(s) finalized by discharge Discharge Plan Discharge Patient Disposition: Home Clinical Impression: Edema Qualifiers: Edema type: localized Qualified Code(s): R60.0 - Localized edema Condition: Stable Prescriptions: New furosemide [Lasix] 40 mg tablet 40 mg PO DAILY Qty: 5 0RF No Action metformin 1,000 mg tablet 1,000 mg PO BID montelukast 10 mg tablet 10 mg PO DAILY olmesartan 20 mg tablet 20 mg PO DAILY pantoprazole 40 mg tablet,delayed release (DR/EC) 40 mg PO DAILY lovastatin 40 mg tablet 40 mg PO DAILY lamotrigine 100 mg tablet 200 mg PO DAILY tramadol 100 mg tablet 50 mg PO Q6H PRN metoprolol tartrate 50 mg tablet 50 mg PO BID albuterol sulfate [ProAir HFA] 90 mcg/actuation HFA aerosol inhaler 2 puff inhalation Q6H PRN (Reason: shortness of breath or wheezing) Qty: 8.5 0RF albuterol sulfate 2.5 mg /3 mL (0.083 %) solution for nebulization 2.5 mg inhalation Q6H PRN (Reason: shortness of breath or wheezing) Qty: 75 0RF galantamine 8 mg tablet 8 mg PO BID 30 Days Qty: 60 3RF Rx Instructions: administer with AM and PM meals mecobalamin (vitamin B12) 1,000 mcg tablet,disintegrating 1,000 mcg sublingual DAILY Rx Instructions: place tablet under tongue and allow to dissolve for at least30 secs before swallowing ondansetron 4 mg tablet,disintegrating 4 mg PO Q8H loperamide [Anti-Diarrheal (loperamide)] 2 mg capsule 2 mg PO Q4H PRN Rx Instructions: administer after each loose stool until symptoms controlled; do not exceed 8 mg per 24 hrs carbidopa-levodopa 25-100 mg tablet 1 tab PO TID hydrocodone-acetaminophen 5-325 mg tablet 1 tab PO Q8H PRN nitroglycerin 0.4 mg tablet, sublingual 0.4 mg sublingual Q5M PRN (Reason: chest pain) 30 Days Qty: 30 3RF Rx Instructions: until response; do not exceed 3 doses per episode isosorbide mononitrate 30 mg tablet extended release 24 hr 30 mg PO DAILY Qty: 30 3RF (DME) DME: Walker Unit See Rx Instructions .Route Qty: 1 0RF Rx Instructions: Wide Wheeled Walker 8 Casters citalopram 40 mg tablet 40 mg PO DAILY Qty: 60 5RF quetiapine [Seroquel] 25 mg tablet 25 mg PO BID Qty: 60 5RF Paxlovid 300 mg (150 mg x 2)-100 mg tablets,dose pack See Rx Instructions .ROUTE .COMPLEX Qty: 30 0RF Rx Instructions: take TWO 150 mg tablets of nirmatrelvir with ONE 100 mg tablet of ritonavir twice daily for 5 days benzonatate 200 mg capsule 200 mg PO TID PRN (Reason: cough) Qty: 30 0RF Discharge Orders: Discharge ED (Routine); Ordered 03/27/24 Ordered By: Marcin Ferreira Referrals: Margo Galindo MD [Primary Care Provider] - 1 week Patient Instructions: Edema (ED) Activity Restrictions/Additional Instructions: He been prescribed Lasix. This is a diuretic. Please get it filled and start taking it tomorrow. This will help with your fluid in your legs and your swelling. Thank you for choosing [facility] for your healthcare needs today. Please realize that you were seen in the emergency department and that we are providing you with an emergency medical screening exam and this may not be a complete and all exclusive of all testing and/or medical workup we may need to determine your element or severity of your illness. It is very important that you follow-up as instructed with your primary care provider or specialist for the additional evaluation and to discuss your medical treatment plan. You may return to the emergency department should you have concerns or if your condition changes or worsens in any way. Coding Level of Care Code ED First Front Ventilator for Tahira Zamora
--- NOTE | 2024-03-27 20:20 | XRR_ITS ---
PROCEDURE INFORMATION: Exam: XR Chest Exam date and time: 03/27/2024 8:25 PM Age: 78 years old Clinical indication: Cough TECHNIQUE: Imaging protocol: Radiologic exam of the chest. Views: 1 view. COMPARISON: CR (CHEST, ) 03/02/2024 6:05 PM FINDINGS: Lungs: Unremarkable. No consolidation. Pleural spaces: Chronic blunting of the left costophrenic angle and silhouetting of the left hemidiaphragm likely secondary to the pericardial fat pad. No pneumothoraces. Heart/Mediastinum: Mild cardiomegaly. Vasculature: Aortic calcifications. Bones/joints: Unremarkable. XR/XR chest 1V portable 82100 IMPRESSION: No acute findings.
[2024-03-27 20:24] LABS: Alanine Aminotransferase < 5 U/L (0-33); Albumin Level 3.7 g/dL (3.5-5.2); Alkaline Phosphatase 131 U/L (35-105); Anion Gap 13.5 (5-19); Aspartate Amino Transferase 8 U/L (0-32); Blood Urea Nitrogen 17 mg/dL (8-23); Carbon Dioxide 27 mmol/L (22-29); Chloride 99 mmol/L (98-107); Creatinine Clr Calc Pharmacy 45.1255; Globulin 3.7 g/dL (1.3-4.6); Glucose 95 mg/dL (65-115); NT Pro B Type Natriuretic Pept 497 pg/mL (0-450); Osmolality Calculated 281 mOsm/kg (285-295); Potassium 4.5 mmol/L (3.5-5.1); Sodium 135 mmol/L (136-145); Total Bilirubin 0.4 mg/dL (0.15-1.2); Total Protein 7.4 g/dL (6.6-8.7)
[2024-03-27 21:07] VITALS: BP 143/80; PULSE 68; O2SAT 98
[2024-03-27 21:39] VITALS: BP 152/69; PULSE 63; O2SAT 94
--- NOTE | 2024-03-27 21:57 | ECG_ITS ---
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 Measurements Intervals [place] Rate: 68 P: 0 NC: 0 QRS: 17 QRSD: 93 T: 55 QT: 391 QTc: 416 Interpretive Statements Normal sinus rhythm with first-degree AV block and occasional PACs Diffuse non specific T wave changes INDETERMINATE AXIS LOW QRS VOLTAGE IN PRECORDIAL LEADS [QRS DEFLECTION < 1.0 mV IN CHEST LEADS] INCOMPLETE RIGHT BUNDLE BRANCH BLOCK [90+ ms QRS DURATION, TERMINAL R IN V1/V2, 40+ ms S IN I/aVL/V4/V5/V6] MINIMAL ST DEPRESSION [0.025+ mV ST DEPRESSION] ABNORMAL RHYTHM ECG Compared to ECG 03/27/2024 19:53:31..ndeterminate axis now present Electronically Signed On 03-29-2024 20:52:51 CDT by Char Mendez M.D. [id number]
[2024-03-27 22:12] LABS: Troponin(5th) Baseline 17 ng/L (0-10)
[2024-03-27 22:27] LABS: Troponin 5 2HR 16.14 ng/L (0-10)
[2024-03-27 22:29] LABS: Troponin 5 2HR Delta -0.86 ABS# (0-10)
[2024-03-27 22:35] VITALS: BP 146/66; PULSE 64; RESP 17; O2SAT 91
[2024-03-28 00:15] VITALS: BP 137/76; PULSE 64; O2SAT 92
== END 2024-03-27 23:33 | disposition home or self-care (01) ==
PROVIDERS: Emergency Medicine; Emergency Provider Emergency Medicine; PCP Family Medicine
DX: R60.0 Localized edema (principal); Z79.84 Long term (current) use of oral hypoglycemic drugs; Z87.891 Personal history of nicotine dependence; E78.5 Hyperlipidemia, unspecified; E11.9 Type 2 diabetes mellitus without complications
CPT/HCPCS: 36415; 71045; 80053; 81001; 83735; 83880; 84484; 85025; 93005; 99285

== ENCOUNTER → 2024-04-03 13:18 | Outpatient (BNVA) | payer MEDICARE, MEDICAID, SELFPAY | PROVIDERS: PCP Family Medicine; Visit Provider Specialist | DX: R41.3 Other amnesia (principal); R29.90 Unspecified symptoms and signs involving the nervous system; G25.0 Essential tremor; F33.1 Major depressive disorder, recurrent, moderate; R11.0 Nausea; G20.A1 Parkinson's disease without dyskinesia, without mention of fluctuations | CPT/HCPCS: 96116; 99214 ==

== ENCOUNTER 2024-04-08 05:36 | Outpatient (CLI) | payer MEDICARE, MEDICAID, SELFPAY ==
[2024-04-08] VITALS (15 sets, daily range): BP systolic 118–159; BP diastolic 62–89; PULSE 60–97; RESP 15–19; TEMP 36.6–37.2; O2SAT 86–95; BMI 39.8
--- NOTE | 2024-04-08 06:00 | XACV_ITS ---
Exam Room: 2 Ht: 160,592 cm Wt: 102 kg BSA: 33.80 m2 Gender: Female : 1945 Any Known Allergies: Other Exam Priority: Routine Procedure(s): Procedure Description: Diagnostic procedure Procedure Description: Left Heart Catheterization Procedure Description: Coronary Angiography Andrea GLASGOW; Diagnostic Cath Status: Elective Diagnostic Findings * Left main is a medium caliber vessel with no significant stenotic lesions. * Left anterior descending artery is a medium caliber vessel which appears to taper off traverse the LV apex. 20 to 30% diffuse intimal irregularities were noted in the mid and distal segment of the artery. Minimal coronary calcification was noted in the midsegment. The first diagonal branch also was found to have mild diffuse intimal irregularities.. * The left circumflex artery is a medium caliber vessel which also was found to have around 30% tubular narrowing in the proximal segment. Mild diffuse intimal irregularities are noted in the distal artery. It gives of a high gives off a high obtuse marginal branch(intermedius artery) which also was found to have 10 to 20% diffuse irregular narrowing with no significant stenotic lesions.. * The right coronary artery is a medium caliber dominant vessel with some intimal irregularities in the proximal and the mid segment. No significant stenotic lesions were noted. Conclusions 1. This 78-year-old white female with history of hypertension, type 2 diabetes, dyslipidemia, congestive heart failure, presenting with complaints of chest pain/chest tightness and dyspnea exertion. She had a Myocardial perfusion imaging 2 years ago which revealed areas of fixed and reversible defect suggesting myocardial scarring with ischemia in the distribution of the left circumflex artery. Initially it was decided to treat him medically. But because of the ongoing worsening of the symptoms, in order to further evaluate the coronary status, a cardiac catheterization was recommended. Patient underwent left heart catheterization with left and right coronary angiogram today. The findings are as follows.. 2. 1. Mild diffuse coronary disease with no significant obstructive lesions 2. Elevated LVEDP 23 mmHg. Diagnostic RX Recommendation: medical therapy and/or counseling LV EDP: 23 mmHg Left Ventriculography Findings: * The LV gram was not performed because of the concern about the dye overload. Patient is known to have chronic kidney disease. The LVEDP was 23 mmHg. Pressures Phase:Rest AO : 145 / 69 ( 99 ) @ 6:14:00 PM 156 / 71 ( 108 ) @ 6:18:00 PM 163 / 79 ( 113 ) @ 6:25:00 PM 159 / 78 ( 111 ) @ 6:25:00 PM LV : 155 / 1 / 23 @ 6:25:00 PM 155 / 0 / 20 @ 6:25:00 PM Valves Phase:DefaultPhase AV : 0.0 @ 5:36:33 PM AV Mean Gradient: 0.0 @ 5:36:33 PM Clinical Evaluation EBL: 5mL-10mL Procedural Details Pre-Procedure Time Out. Identified patient by full name and date of as verbalized by the patient/guarantor. Does the consent match the physician's order: Yes. Accurate & Complete Informed Consent: Yes. Inpatient/Outpatient History & Physical on Chart: Yes. If H&P is completed, is and addenduem needed: No; If yes, is the addendum complete: N/A. Visualize and Verify Site with Patient/Guarantor: N/A. Relevant Radiology Images available: N/A. Pre-op teaching completed and patient verbalized understanding. The risks, benefits, and alternatives of sedation and/or procedure were discussed by physician. The patient agrees to continue. Procedure started. HA Clinical Fraility Score: 3: Managing Well. Facilities Coordinator Indications: Worsening Angina. Chest Pain Symptom Assessment: Atypical Angina. Correct patient, site and procedure confirmed by cath team. Current diagnosis: Chest Pain, Syncope, Abnormal stress test. PERRLA. 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 Lungs clear x 5 lobes. IV Site on Arrival: 20 gauge in the left anticubital. IV Fluids: 0.9% NaCl at KVO. 850 mL infused prior to pit laborer. Pre Procedural Pulses: bilateral radial was 3+. Pre Procedural Pulses: bilateral posterior tibial was 3+. Pre Procedural Pulses: bilateral dorsalis pedis was 3+. Oxygen started at 2liters/min via nasal canula. right radial was prepped with chloroprep then draped in the usual sterile fashion. right groin was prepped with chloroprep then draped in the usual sterile fashion. Physician notified. Baseline sample Acquired. HR: 71 BPM. Physician arrived. Admit Source: Out Patient. Physician scrubbed in. Immediate Pre-Procedure Time Out. Correct Patient: Yes; Correct Procedure: Yes; Correct Site: Yes; Correct Patient Position: Yes; Correct Supplies: Yes; Dried Flammable Prep: Yes; Blood Products Available: Yes;. Lidocaine 1% infiltrated to the right radial. Arterial access obtained. Hand injection through the radial sheath. A TR Band was successful obtaining hemostatsis at the Right Radial artery insertion site. Turtuosity of artery see under angiography. Radial procedure aborted. Lidocaine 1% infiltrated to the right groin. Arterial access obtained. A 5 british JL4 catheter in over wire. Multiple views taken of left coronary artery. Catheter removed over the standard wire. A 5 british JR4 catheter in over wire. Multiple views taken of right coronary artery. EDP Sample taken: LV 155/1,23; HR: 63 BPM; SpO2: 97%. Pullback taken: LV 155/0,20; AO 163/79(113); Mean: 0mmHg, Peak to Peak: 0mmHg, SEP: 5sec/min; HR: 64 BPM; SpO2: 96%. Catheter removed over the standard wire. A Right femoral angiogram was performed to determine safe placement of closure device. Physician scrubbed out. Dr. Blair scrubbed in to place closure device. A Mynx was successful obtaining hemostatsis at the Right Femoral artery insertion site. LOT # [id number] EXP 03-10-2026. Post Procedure: Pulses reassessed and unchanged. PERRLA. 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 No VTE prophylaxis required. Medication's Wasted: Lidocaine 1% = 2 mL. Medication's Wasted: Nitro = 49.8 mg. Medication's Wasted: Heparin = 1000 unit. Total IV fluids: 100 mL. Post-op diagnosis: Non-obstructive CAD. Complications: None. Estimated blood loss: 5mL-10mL. Responsiveness - Normal response to verbal stimuli; alert and oriented, PERRLA. Airway - Unaffected, no intervention required; spontaneous ventilation. Circulation: W/N/L, pulses unchanged. Nausea/Vomiting: No. Procedure completed. Patient transferred by bed to 1st floor. Vital chart was stopped. Access Site Site: Right Radial artery Sheath Size: 6 Fr Hemostasis Method: TR Band Hemostasis Success: Successful Site: Right Femoral artery Sheath Size: 6 Fr Hemostasis Method: Mynx Hemostasis Success: Successful Procedure Medications Start: 4:39 PM Stop: 4:39 PM Medication: Versed Amount: 1 mg Route: I.V. Start: 4:39 PM Stop: 4:39 PM Medication: Fentanyl Amount: 25 mcg Route: I.V. Start: 4:48 PM Stop: 4:48 PM Medication: Versed Amount: 1 mg Route: I.V. Start: 4:48 PM Stop: 4:48 PM Medication: Fentanyl Amount: 25 mcg Route: I.V. Start: 4:58 PM Stop: 4:58 PM Medication: Verapamil Route: I.A. Start: 4:58 PM Stop: 4:58 PM Medication: Nitrogylcerin Amount: 200 mcg Start: 5:13 PM Stop: 5:13 PM Medication: Fentanyl Amount: 25 mcg Route: I.V. Start: 5:29 PM Stop: 5:29 PM Medication: Fentanyl Amount: 25 mcg Route: I.V. I, the attending physician, have reviewed and verified all procedure medications. Yes, all medications given per verbal order History/Risk Factors Hypertension: Yes Dyslipidemia: No Peripheral Arterial Disease (PAD): No Myocardial Infarction (CO): No Obesity: Yes Renal Disease: No Tobacco Use: Former Prior Interventions PCI: No CABG: No Valve Surgery: No Report Signatures Finalized by Dr Char Mendez MD [facility] on 04/08/2024 10:12 PM
[2024-04-08 06:29] LABS: Basophils % 0.3 %; Eosinophils # 0.1 10^3/uL (0.0-0.8); Eosinophils % 0.9 %; Hematocrit 33.9 % (36-47); Lymphocytes % 39.3 %; Mean Corpuscular HGB Conc 29.5 g/dL (30-55); Mean Corpuscular Hemoglobin 28.1 pg (27-33); Mean Corpuscular Volume 95.2 fl (85-98); Mean Platelet Volume 10.7 fL (7.4-10.4); Monocytes # 0.8 10^3/uL (0.2-0.9); Monocytes % 10.7 %; Neutrophils # 3.57 10^3/uL (1.8-7.7); Neutrophils % 47.5 %; Nucleated Red Blood Cells % 0 %; Platelet Count 283 10^3/cmm (157-399); Red Blood Count 3.56 10^6/uL (3.85-5.65); Red Cell Distribution Width 15.9 % (12.1-15.1); White Blood Count 7.51 10^3/uL (3.29-11.43)
[2024-04-08] MEDS: aspirin 325 mg Tablet PO (06:40)
[2024-04-08] MEDS: diphenhydrAMINE 50 mg Capsule PO (06:40)
[2024-04-08 06:47] LABS: Anion Gap 16.9 (5-19); Blood Urea Nitrogen 29 mg/dL (8-23); Carbon Dioxide 27 mmol/L (22-29); Chloride 100 mmol/L (98-107); Glucose 126 mg/dL (65-115); Osmolality Calculated 295 mOsm/kg (285-295); Potassium 4.9 mmol/L (3.5-5.1); Sodium 139 mmol/L (136-145)
--- NOTE | 2024-04-08 07:19 | SUR.PREOP ---
MD NOTIFICATION/ABNORMAL LAB WORK Patient's creatnine elevated at 1.5. MD aware. In to discuss findings pre procedure. Awating orders.
--- NOTE | 2024-04-08 07:25 | SUR.PREOP ---
POST DISCUSSION MD ORDERS Patient to receive 250 ml bolus now and then 75 cc/hr. Plan to cath today after bolus is completed. IV fluids and bolus given as ordered.
--- NOTE | 2024-04-08 07:29 | P.HP_ITS ---
Providers/Chief Complaint 2 Admitting Physician: BUCKY Mendez MD/cardiology Primary Care Provider: Margo Galindo MD Chief Complaint: R94.39, R55 History of Present Illness Nisha Galindo is a 78 year old female with a history of hypertension, dyslipidemia, type 2 diabetes, diastolic heart failure, obstructive sleep apnea, is presenting with complaints of increasing shortness of breath, chest pain/heaviness . She had a Myocardial perfusion imaging in 2021. She was found to have areas of fixed and reversible defects in the distribution of the left circumflex artery. Initially it was opted to treat him medically. According to the patient, her symptoms are getting worse. She was recently seen in the emergency room with the complaints of shortness of breath and leg swelling. She was found to have features of congestive heart failure. She was started on Lasix and potassium. She is known to have chronic kidney disease. Her creatinine was 1.4 and last month. Then it came down to 1.2, while she was in the emergency room. Since she started taking the Lasix and potassium, her swelling is improving. Her repeat BMP today revealed the creatinine level to be 1.5. Patient has no chest fever or chills. No cough. Her heart rate has been fluctuating, according to the patient. The rate may go down to the 50s and then goes into the 70s and 80s. She is known to have first- degree AV block. No documented significant arrhythmias. Review of Systems 2 Narrative: CONSTITUTIONAL: No fever or chills. EYES: No blurring of vision or other visual disturbances lately. ENT: No hoarseness of voice, auditory disturbances or sore throat. CARDIOVASCULAR: As mentioned above. RESPIRATORY: No significant cough. GASTROINTESTINAL: No hematemesis or melena. GENITOURINARY: Chronic kidney disease. INTEGUMENTARY: No skin rashes or history of skin cancer. NEURO: No transient ischemic attacks or amaurosis. PSYCHIATRIC: No history of psychosis or major depression. HEMATOLOGIC: No bleeding disorders or significant anemia. ENDOCRINE: Diabetes as mentioned above. MUSCULOSKELETAL: No recent joint pain or swelling. ALLERGY/IMMUNOLOGY: As mentioned above. Medications/Allergies Home Medications Medication Instructions Recorded Confirmed Last Taken Type lovastatin 40 mg tablet 40 mg PO DAILY 10/14/20 04/08/24 04/07/24 17:00 History metformin 1,000 mg tablet 1,000 mg PO BID 10/14/20 04/08/24 04/07/24 15:00 History montelukast 10 mg tablet 10 mg PO DAILY 10/14/20 04/08/24 04/07/24 04:26 History olmesartan 20 mg tablet 20 mg PO DAILY 10/14/20 04/08/24 04/07/24 04:26 History pantoprazole 40 mg tablet,delayed 40 mg PO DAILY 10/14/20 04/08/24 04/07/24 04:26 History release albuterol sulfate 90 mcg/actuation 2 puff inhalation Q6H PRN 12/20/20 04/08/24 Unknown Rx aerosol inhaler (ProAir HFA) shortness of breath or wheezing #8.5 grams albuterol sulfate 2.5 mg/3 mL 2.5 mg (3 mL) inhalation Q6H PRN 12/29/20 04/08/24 Unknown Rx (0.083 %) solution for nebulization shortness of breath or wheezing #75 mL lamotrigine 100 mg tablet 200 mg PO DAILY 07/07/21 04/08/24 04/07/24 04:26 History metoprolol tartrate 50 mg tablet 50 mg PO BID 07/07/21 04/08/24 04/07/24 04:26 History galantamine 8 mg tablet 8 mg PO BID 30 days #60 tabs 12/18/22 04/08/24 04/07/24 04:26 Rx SUNSHINE: [place] #1 ea 01/05/23 04/08/24 Unknown Rx mecobalamin (vitamin B12) 1,000 1,000 mcg sublingual DAILY 02/05/23 04/08/24 04/07/24 04:26 History mcg disintegrating tablet,sublingual tramadol 100 mg tablet 50 mg PO Q6H PRN Sleep 02/05/23 04/08/24 04/07/24 18:00 History citalopram 40 mg tablet 40 mg PO DAILY #60 tabs 08/18/23 04/08/24 04/07/24 04:26 Rx isosorbide mononitrate 30 mg 30 mg PO DAILY #30 tabs 08/20/23 04/08/24 04/07/24 04:26 Rx tablet,extended release 24 hr nitroglycerin 0.4 mg sublingual 0.4 mg sublingual Q5M PRN chest 08/20/23 04/08/24 Unknown Rx tablet pain 30 days #30 tabs quetiapine 25 mg tablet (Seroquel) 25 mg PO BID #60 tabs 11/10/23 04/08/24 04/07/24 04:26 Rx carbidopa 25 mg-levodopa 100 mg 1 tab PO TID 02/20/24 04/08/24 04/08/24 04:26 History tablet hydrocodone 5 mg-acetaminophen 325 1 tab PO Q8H PRN Pain 02/20/24 04/08/24 Unknown History mg tablet loperamide 2 mg capsule 2 mg PO Q4H PRN Diarrhea 02/20/24 04/08/24 Unknown History (Anti-Diarrheal (loperamide)) ondansetron 4 mg disintegrating 4 mg PO Q8H 02/20/24 04/08/24 Unknown History tablet benzonatate 200 mg capsule 200 mg PO TID PRN cough #30 caps 03/02/24 04/08/24 Unknown Rx furosemide 40 mg tablet (Lasix) 40 mg PO DAILY #5 tabs 03/27/24 04/08/24 04/07/24 04:26 Rx potassium chloride 10 mEq oral 10 meq PO DAILY 04/08/24 04/08/24 04/08/24 04:26 History packet Allergies Allergy/AdvReac Type Severity Reaction Status Date / Time duloxetine Allergy VOMITING Verified 04/08/24 06:52 Sulfa (Sulfonamide Allergy UNKNOWN Verified 04/08/24 06:52 Antibiotics) sulfamethoxazole Allergy UNKNOWN Verified 04/08/24 06:52 [From ] trimethoprim [From ] Allergy UNKNOWN Verified 04/08/24 06:52 PFSH Acute 2 PFSH: Medical History History of cystocele Morbid obesity Hemorrhagic diarrhea Rectal bleeding History of rectocele Chest pain Hyperlipemia Depression Essential tremor Sleep apnea Diabetes mellitus Diastolic dysfunction Surgical History History of rectal surgery Hx of shoulder surgery History of bladder suspension procedure Hx of cataract extraction History of knee replacement Hx of hysterectomy Hx of cholecystectomy Hx of tonsillectomy Family History Family/Other No problems noted. Father CAD (coronary artery disease), Onset Age: 70 Diabetes Mother CAD (coronary artery disease), Onset Age: 60 Grandmother Chronic kidney disease (CKD) Son Lung disease Denies family history of Clotting disorder Dementia Suicide Anesthesia complication Bleeding disorder Cancer Stroke Social History Smoking and tobacco/nicotine status: former use of tobacco/nicotine Quit status (tobacco/nicotine): has quit using Year quit tobacco: 1984 Former quit date comment: 1 PPD X 15 YEARS Alcohol intake: current Alcohol intake frequency: holidays/special occasions only Substance/Drug Use: never Female Reproductive History: Spontaneous abortions: No Vitals/I&O/Wt Last Vital Signs Temp 97.9 F 04/08/24 07:18 Pulse 62 04/08/24 07:18 Resp 18 04/08/24 07:18 BP 120/62 04/08/24 07:18 Pulse Ox 93 04/08/24 07:18 O2 Del Method Room Air 04/08/24 07:18 Weight last 48 hrs Weight 225 lb Physical Exam 2 Narrative: GENERAL: The patient is alert and oriented times three. Not in any acute distress. HEENT: No significant pallor, icterus or lymphadenopathy.Oral cavity: There are no mucous membrane lesions. NECK: Trachea appears to be central. No masses noted. No JVD or thyromegaly appreciated. RESPIRATORY: Chest is symmetrical. No intercostals muscle retraction or any accessory muscle activation. There is no chest wall tenderness. Breath sounds are heard bilaterally. No rales or rhonchi heard. No evidence of any consolidation. BREASTS: Deferred. HEART: The heart sounds are normal. No S3 or S4. No significant murmurs. No pericardial rub ABDOMEN: No vessel pulsations or distention. No tenderness. No organomegaly appreciated. Bowel sounds are normally heard. : Deferred. RECTAL: Deferred. LYMPHATIC: No lymphadenopathy noted in the neck. EXTREMITIES: 1+ edema both lower extremities. No cyanosis. MUSCULOSKELETAL: No acute joint deformities or swelling SKIN: There are no significant rashes or ecchymosis NEUROPSYCHIATRIC: The patient is alert and oriented x3. Appears to be in a good mood. No tremors or rigidity noted. Data 04/08/24 06:21 04/08/24 15:00 Other Labs: Laboratory Last Values WBC 7.51 10^3/uL (3.29-11.43) 04/08/24 06:21 RBC 3.56 10^6/uL (3.85-5.65) L 04/08/24 06:21 Hgb 10.00 g/dL (11.27-16.99) L 04/08/24 06:21 Hct 33.9 % (36-47) L 04/08/24 06:21 MCV 95.2 fl (85-98) 04/08/24 06:21 MCH 28.1 pg (27-33) 04/08/24 06:21 MCHC 29.5 g/dL (30-55) L 04/08/24 06:21 RDW 15.9 % (12.1-15.1) H 04/08/24 06:21 Plt Count 283 10^3/cmm (157-399) 04/08/24 06:21 MPV 10.7 fL (7.4-10.4) H 04/08/24 06:21 Neut % (Auto) 47.5 % 04/08/24 06:21 Lymph % (Auto) 39.3 % 04/08/24 06:21 [place] % (Auto) 10.7 % 04/08/24 06:21 Eos % (Auto) 0.9 % 04/08/24 06:21 Baso % (Auto) 0.3 % 04/08/24 06:21 Neut # (Auto) 3.57 10^3/uL (1.8-7.7) 04/08/24 06:21 Lymph # (Auto) 3.0 10^3/uL (0.8-4.8) 04/08/24 06:21 [place] # (Auto) 0.8 10^3/uL (0.2-0.9) 04/08/24 06:21 Eos # (Auto) 0.1 10^3/uL (0.0-0.8) 04/08/24 06:21 Baso # (Auto) 0.0 10^3/uL (0.0-0.1) 04/08/24 06:21 Nucleated RBC % (auto) 0 % 04/08/24 06:21 Nucleated RBCs # 0.0 /100WBC 04/08/24 06:21 Sodium 139 mmol/L (136-145) 04/08/24 06:21 Potassium 4.9 mmol/L (3.5-5.1) 04/08/24 06:21 Chloride 100 mmol/L (98-107) 04/08/24 06:21 Carbon Dioxide 27 mmol/L (22-29) 04/08/24 06:21 Anion Gap 16.9 (5-19) 04/08/24 06:21 BUN 29 mg/dL (8-23) H 04/08/24 06:21 Creatinine 1.5 mg/dL (0.5-0.9) H 04/08/24 06:21 GFR Calculation Not Reportable 04/08/24 06:21 Glucose 126 mg/dL (65-115) H 04/08/24 06:21 Calculated Osmolality 295 mOsm/kg (285-295) 04/08/24 06:21 Calcium 9.0 mg/dL (8.5-10.5) 04/08/24 06:21 Other data: MPI in 2021 1.? Myocardial perfusion imaging revealing is small to moderate area of ?decreased tracer uptake in the mid inferolateral and apical lateral region, but ?some reversibility in the mid inferolateral region suggestive of myocardial ?scarring with ischemia in the distribution of the left circumflex artery. ?2.? Normal LV ejection fraction 70%. ?3.? LV wall motion analysis revealing no gross wall motion normalities. ?4.? Normal LV volume. ?No similar previous studies are available for comparison 1. No significant EKG changes with the LexiScan infusion 2. No LexiScan induced chest pain or cardiac arrhythmia 3. Normal blood pressure and heart rate response A&P Assessment and plan (1) Abnormal nuclear stress test: The Myocardial perfusion imaging is suggestive of possible myocardial scarring with ischemia in distribution of the circumflex artery. For further evaluation of the coronary status, a cardiac catheterization would be appropriate especially in view of the ongoing symptoms with the recent development of diastolic heart failure. The risk of bleeding, hematoma, vascular injury, myocardial infarction, myocardial perforation, malignant cardiac arrhythmias ,CVA, renal failure and other concomitant complications were explained in detail. Because of the chronic kidney disease, she carries a higher risk for contrast-induced nephropathy. This was explained in detail with the patient and to her daughter which he understood well. (2) Benign essential hypertension with target blood pressure below 140/90: Blood pressure is fairly under control. (3) Chest pain: Patient has more of chest tightness/heaviness. Most likely related to underlying coronary ischemia. Her EKG did not detail any acute ischemic changes. She has first-degree AV block. Qualifiers: Chest pain type: other chest pain Qualified Code(s): R07.89 - Other chest pain (4) Hyperlipemia: May continue on the current medications. Qualifiers: Hyperlipidemia type: mixed hyperlipidemia Qualified Code(s): E78.2 - Mixed hyperlipidemia (5) Diastolic heart failure: The heart failure symptoms are improving. Qualifiers: Heart failure chronicity: acute on chronic Qualified Code(s): I50.33 - Acute on chronic diastolic (congestive) heart failure (6) Acute kidney injury superimposed on chronic kidney disease: Because of the chronic kidney disease, patient carries a higher risk for contrast-induced nephropathy. This was discussed with the patient and family in detail. We will start on careful IV hydration. Plan Will give IV hydration. Based on the angiogram findings, further recommendations will be made. Attestations 2 Medical Necessity Statement*: Patient need to be staying overnight for close monitoring and fluid hydration Coding Level of Care Code 50994 Diagnoses Abnormal nuclear stress test R94.39 Benign essential hypertension with target blood pressure below 140/90 I10 Other chest pain R07.89 Chest pain type: other chest pain Mixed hyperlipidemia E78.2 Hyperlipidemia type: mixed hyperlipidemia Acute on chronic diastolic heart failure I50.33 Heart failure chronicity: acute on chronic Acute kidney injury superimposed on chronic kidney disease N17.9; N18.9
--- NOTE | 2024-04-08 08:19 | SUR.PREOP ---
MD DISCUSSION Plan- admit to observation for pre hydration in anticipation of cath tomorrow at 1630. Director Product made aware of admission status. Patient made aware of admission plans by MD and is agreeable. Plan to keep patient in CPRU until bed becomes available so they don't have to come back today. Plan to keep the patient until 2 pm if needed awaiting bed availabily. They are agreeable to that. Call light in reach. Family at bedside. Awaiting admission orders from Dr. Mendez.
--- NOTE | 2024-04-08 08:30 | SUR.PREOP ---
MD ORDERS Plan to cath toningt at 1630 pending bed availability. Cancel Echo. Give hydration at 75 cc/hr until cath this evening. Orders noted and completed.
[2024-04-08 15:38] LABS: Anion Gap 13.8 (5-19); Blood Urea Nitrogen 30 mg/dL (8-23); Calcium 8.8 mg/dL (8.5-10.5); Carbon Dioxide 26 mmol/L (22-29); Chloride 101 mmol/L (98-107); Creatinine Clr Calc Pharmacy 35.8305; Glucose 102 mg/dL (65-115); Osmolality Calculated 288 mOsm/kg (285-295); Potassium 4.8 mmol/L (3.5-5.1); Sodium 136 mmol/L (136-145)
--- NOTE | 2024-04-08 16:04 | SUR.PREOP ---
1500 LABS BMP results called to MD. Case on hold unil MD can come speak to the patient about the findings. Patient updated. No changes at this time.
--- NOTE | 2024-04-08 16:43 | W.PM.OPSUD ---
Surgery/Procedure H&P Update DATE OF PROCEDURE: April 08, 2024 DATE H&P PERFORMED: 04/08/24 H&P UPDATE INFORMATION: I have reviewed H&P completed within last 30 days, I have examined patient prior to procedure and No changes to prior documentation PREOP DIAGNOSIS: Suspected ASHD PRIMARY INDICATION FOR PROCEDURE: Abnormal Myocardial perfusion imaging, multiple risk factors for coronary artery disease, CHF chest pain/chest heaviness. PLANNED PROCEDURE: Operation Date: 04/08/24 07:00 Proposed Procedures p Cardiac Catheterization(Left) - Char Mendez MD PATIENT REASSESSED PRIOR TO SEDATION, WITH NO CHANGE NOTED: Yes PHYSICAL EXAM: oriented x 3 AIRWAY EVAL/ANESTHESIA PLAN: normal airway, see other exam findings, Monitored Anesthesia, Local Anesthesia, Risks, benefits & alternatives of sedation and/or procedure discussed and Patient agrees to continue as planned
--- NOTE | 2024-04-08 18:24 | PC.NURSE ---
pt received from medical lab specialist via bed. tr band intact. no hematoma or bleeding. right groin access with minx closure decice, dressing dry and intact. no hematoma or bleeding upon arrival.pt requested galdamez catheter. 16F galdamez cath inserted via aseptic technique. call light provided to pt.
[2024-04-08] MEDS: metoprolol tartrate 50 mg Tablet PO (19:10)
[2024-04-08] MEDS: quetiapine 25 mg Tablet PO (19:10)
--- NOTE | 2024-04-08 20:23 | PC.NURSE ---
shift note pt is s/p left heart cath with tr band and minx closure device on right groin. call light at bedside. activity restrictions discuss to pt on right groin and right hand. bedrest for 4-6 hrs and to notify nurse POOJA for any unusual pain, discomfort or bleeding to access sites.
[2024-04-08] MEDS: carbidopa-levodopa 25-100mg Tablet 1 EACH PO (20:53)
[2024-04-09 06:23] LABS: Blood Urea Nitrogen 24 mg/dL (8-23); Calcium 8.4 mg/dL (8.5-10.5); Carbon Dioxide 26 mmol/L (22-29); Chloride 109 mmol/L (98-107); Creatinine Clr Calc Pharmacy 38.3898; Glucose 105 mg/dL (65-115); Osmolality Calculated 298 mOsm/kg (285-295); Sodium 142 mmol/L (136-145)
[2024-04-09 06:24] LABS: Anion Gap 12.1 (5-19); Potassium 5.1 mmol/L (3.5-5.1)
[2024-04-09 08:11] VITALS: BP 137/68; PULSE 70; RESP 25; O2SAT 91
[2024-04-09] MEDS: citalopram 20 mg Tablet 40 MG PO (09:20)
[2024-04-09] MEDS: isosorbide mononitrate ER 30 mg Tablet PO (09:20)
[2024-04-09] MEDS: carbidopa-levodopa 25-100mg Tablet 1 EACH PO (09:20)
[2024-04-09] MEDS: atorvastatin 40 mg Tablet PO (09:20)
[2024-04-09] MEDS: metoprolol tartrate 50 mg Tablet PO (09:21)
[2024-04-09] MEDS: pantoprazole DR 40 mg Tablet PO (09:21)
[2024-04-09] MEDS: montelukast sodium 10 mg Tablet PO (09:21)
[2024-04-09] MEDS: quetiapine 25 mg Tablet PO (09:21)
[2024-04-09 09:22] VITALS: BP 137/68
[2024-04-09] MEDS: losartan 50 mg Tablet PO (09:22)
--- NOTE | 2024-04-09 09:58 | P.PN_ITS ---
Subjective 2 Subjective: Patient had a cardiac catheterization yesterday. She was found to have mild diffuse coronary artery disease. Her LVEDP was elevated at 30 mmHg. Based on the angiogram findings, it was opted to treat her medically. She remained stable throughout the hospital course. Her creatinine level came down to 1.4 today. Medications: Medication Review Details: Current Medications Hydrocodone Bitart/Acetaminophen (Hydrocodone-Acetaminophen 5-325 Mg Tablet) 1 tab PO Q8H PRN PRN Reason: Pain Al Hydrox/Mg Hydrox/Simethicone (Jjvq-Jam-Pkvnrwaeg-Abdulkadir 30 Ml Udc) 30 ml PO Q15M PRN PRN Reason: INDIGESTION Albuterol Sulfate (Albuterol 2.5 Mg/3 Ml Neb) 2.5 mg INHALATION Q6H PRN PRN Reason: shortness of breath or wheezing Albuterol Sulfate (Albuterol 2.5 Mg/3 Ml Neb) 2.5 mg INHALATION Q6H.RESP PRN PRN Reason: shortness of breath or wheezing Alprazolam (Alprazolam 0.5 Mg Tablet) 0.25 mg PO TID PRN PRN Reason: ANXIETY Atorvastatin Calcium (Atorvastatin 40 Mg Tablet) 40 mg PO DAILY [facility] Last Admin: 04/09/24 09:20 Dose: 40 mg Atropine Sulfate (Atropine 1 Mg/Ml Sdv 1 Ml) 0.5 mg IVP PRN PRN PRN Reason: Symptomatic bradycardia Benzonatate (Benzonatate 100 Mg Capsule) 200 mg PO TID PRN PRN Reason: cough Carbidopa/Levodopa (Carbidopa-Levodopa 25-100mg Tablet) 1 each PO TID [facility] Last Admin: 04/09/24 09:20 Dose: 1 each Citalopram Hydrobromide (Citalopram 20 Mg Tablet) 40 mg PO DAILY [facility] Last Admin: 04/09/24 09:20 Dose: 40 mg Isosorbide Mononitrate (Isosorbide Mononitrate Er 30 Mg Tablet) 30 mg PO DAILY [facility] Last Admin: 04/09/24 09:20 Dose: 30 mg Lamotrigine (Lamotrigine 100 Mg Tablet) 200 mg PO DAILY [facility] Last Admin: 04/09/24 09:23 Dose: Not Given Loperamide HCl (Loperamide 2 Mg Capsule) 2 mg PO Q4H PRN PRN Reason: Diarrhea Losartan Potassium (Losartan 50 Mg Tablet) 50 mg PO DAILY [facility] Last Admin: 04/09/24 09:22 Dose: 50 mg Magnesium Hydroxide (Magnesium Hydroxide 30 Ml Udc) 30 ml PO DAILY PRN PRN Reason: CONSTIPATION Metoprolol Tartrate (Metoprolol Tartrate 50 Mg Tablet) 50 mg PO BID [facility] Last Admin: 04/09/24 09:21 Dose: 50 mg Montelukast Sodium (Montelukast Sodium 10 Mg Tablet) 10 mg PO DAILY [facility] Last Admin: 04/09/24 09:21 Dose: 10 mg Naloxone HCl (Naloxone 0.4 Mg/Ml Sdv) 0.1 mg IVP Q2M PRN PRN Reason: RESPIRATORY RATE < 8/MIN Nitroglycerin (Nitroglycerin 0.4 Mg Sublingual Tablet) 0.4 mg SUBLINGUAL Q5M PRN PRN Reason: chest pain Non-Formulary Medication (Galantamine) 8 mg PO BID [facility] Last Admin: 04/08/24 18:35 Dose: Not Given Ondansetron HCl (Ondansetron 4 Mg Tablet) 4 mg PO Q8H [facility] Last Admin: 04/09/24 09:30 Dose: Not Given Pantoprazole Sodium (Pantoprazole Dr 40 Mg Tablet) 40 mg PO DAILY [facility] Last Admin: 04/09/24 09:21 Dose: 40 mg Quetiapine Fumarate (Quetiapine 25 Mg Tablet) 25 mg PO BID [facility] Last Admin: 04/09/24 09:21 Dose: 25 mg Temazepam (Temazepam 15 Mg Capsule) 15 mg PO BEDTIME PRN PRN Reason: INSOMNIA Tramadol HCl (Tramadol 50 Mg Tablet) 50 mg PO BEDTIME PRN PRN Reason: Sleep Vitals/I&O/Wt Last Vital Signs Temp 98.9 F 04/08/24 19:16 Pulse 70 04/09/24 08:11 Resp 25 H 04/09/24 08:11 BP 137/68 04/09/24 09:22 Pulse Ox 91 04/09/24 08:11 O2 Del Method Room Air 04/09/24 08:11 04/08/24 04/09/24 04/09/24 22:59 06:59 14:59 Intake Total 240 / 240 Balance 240 / 240 Weight last 48 hrs Weight 225 lb Physical Exam 2 Narrative: GENERAL: The patient is alert and oriented times three. Not in any acute distress. HEENT: No significant pallor, icterus or lymphadenopathy.Oral cavity: There are no mucous membrane lesions. NECK: Trachea appears to be central. No masses noted. No JVD or thyromegaly appreciated. RESPIRATORY: Chest is symmetrical. No intercostals muscle retraction or any accessory muscle activation. There is no chest wall tenderness. Breath sounds are heard bilaterally. No rales or rhonchi heard. No evidence of any consolidation. BREASTS: Deferred. HEART: The heart sounds are normal. No S3 or S4. No significant murmurs. No pericardial rub ABDOMEN: No vessel pulsations or distention. No tenderness. No organomegaly appreciated. Bowel sounds are normally heard. : Deferred. RECTAL: Deferred. LYMPHATIC: No lymphadenopathy noted in the neck. EXTREMITIES: Right groin has no hematoma or bleeding. Small ecchymosis in the right wrist with good pulses MUSCULOSKELETAL: No acute joint deformities or swelling SKIN: There are no significant rashes or ecchymosis NEUROPSYCHIATRIC: The patient is alert and oriented x3. Appears to be in a good mood. No tremors or rigidity noted. Urinary Catheter Management: Álvarez Latex Free: Cath Placed During This Visit: yes Reason for Continuing Indwelling Catheter: Acute Urinary Retention or Obstruction Urinary Catheter Date of Insertion: 04/08/24 Urinary Catheter Time of Insertion: 18:00 Data 04/08/24 06:21 04/09/24 05:45 Other Labs: Laboratory Last Values WBC 7.51 10^3/uL (3.29-11.43) 04/08/24 06:21 RBC 3.56 10^6/uL (3.85-5.65) L 04/08/24 06:21 Hgb 10.00 g/dL (11.27-16.99) L 04/08/24 06:21 Hct 33.9 % (36-47) L 04/08/24 06:21 MCV 95.2 fl (85-98) 04/08/24 06:21 MCH 28.1 pg (27-33) 04/08/24 06:21 MCHC 29.5 g/dL (30-55) L 04/08/24 06:21 RDW 15.9 % (12.1-15.1) H 04/08/24 06:21 Plt Count 283 10^3/cmm (157-399) 04/08/24 06:21 MPV 10.7 fL (7.4-10.4) H 04/08/24 06:21 Neut % (Auto) 47.5 % 04/08/24 06:21 Lymph % (Auto) 39.3 % 04/08/24 06:21 [place] % (Auto) 10.7 % 04/08/24 06:21 Eos % (Auto) 0.9 % 04/08/24 06:21 Baso % (Auto) 0.3 % 04/08/24 06:21 Neut # (Auto) 3.57 10^3/uL (1.8-7.7) 04/08/24 06:21 Lymph # (Auto) 3.0 10^3/uL (0.8-4.8) 04/08/24 06:21 [place] # (Auto) 0.8 10^3/uL (0.2-0.9) 04/08/24 06:21 Eos # (Auto) 0.1 10^3/uL (0.0-0.8) 04/08/24 06:21 Baso # (Auto) 0.0 10^3/uL (0.0-0.1) 04/08/24 06:21 Nucleated RBC % (auto) 0 % 04/08/24 06:21 Nucleated RBCs # 0.0 /100WBC 04/08/24 06:21 Sodium 142 mmol/L (136-145) 04/09/24 05:45 Potassium 5.1 mmol/L (3.5-5.1) 04/09/24 05:45 Chloride 109 mmol/L (98-107) H 04/09/24 05:45 Carbon Dioxide 26 mmol/L (22-29) 04/09/24 05:45 Anion Gap 12.1 (5-19) 04/09/24 05:45 BUN 24 mg/dL (8-23) H 04/09/24 05:45 Creatinine 1.4 mg/dL (0.5-0.9) H 04/09/24 05:45 GFR Calculation Not Reportable 04/09/24 05:45 Glucose 105 mg/dL (65-115) 04/09/24 05:45 Calculated Osmolality 298 mOsm/kg (285-295) H 04/09/24 05:45 Calcium 8.4 mg/dL (8.5-10.5) L 04/09/24 05:45 A&P Assessment and plan (1) Abnormal nuclear stress test: Cardiac catheterization revealing mild CAD. Th (2) Benign essential hypertension with target blood pressure below 140/90: Blood pressure is fairly under control. (3) Chest pain: Most likely noncardiac. Qualifiers: Chest pain type: other chest pain Qualified Code(s): R07.89 - Other chest pain (4) Hyperlipemia: May continue on the current medications. Qualifiers: Hyperlipidemia type: mixed hyperlipidemia Qualified Code(s): E78.2 - Mixed hyperlipidemia (5) Diastolic heart failure: The heart failure symptoms are improving. Qualifiers: Heart failure chronicity: acute on chronic Qualified Code(s): I50.33 - Acute on chronic diastolic (congestive) heart failure (6) Acute kidney injury superimposed on chronic kidney disease: The kidney function is stable. Creatinine level came down to 1.4 from 1.5. Plan Since the patient is remaining stable with no new symptoms, she is being discharged home today. Will be seen in the clinic in 1 to 2 weeks. Will do a repeat BMP at that time. Attestations 2 Medical Necessity Statement*: Discharge home today Coding Level of Care Code 87826 Diagnoses Abnormal nuclear stress test R94.39 Benign essential hypertension with target blood pressure below 140/90 I10 Other chest pain R07.89 Chest pain type: other chest pain Mixed hyperlipidemia E78.2 Hyperlipidemia type: mixed hyperlipidemia Acute on chronic diastolic heart failure I50.33 Heart failure chronicity: acute on chronic Acute kidney injury superimposed on chronic kidney disease N17.9; N18.9
[2024-04-09 12:28] VITALS: BP 116/70; PULSE 56; RESP 19; TEMP 36.7; O2SAT 94
[2024-04-09 12:29] VITALS: BP 116/70; PULSE 56; RESP 19; TEMP 36.7; O2SAT 94
== END 2024-04-09 14:15 | disposition home or self-care (01) ==
LOC: CCL 05:39 → CSU 18:15
PROVIDERS: PCP Family Medicine; Visit Provider Internal Medicine Cardiovascular Disease
DX: I25.10 Atherosclerotic heart disease of native coronary artery without angina pectoris (principal); I11.0 Hypertensive heart disease with heart failure; I50.33 Acute on chronic diastolic (congestive) heart failure; E66.9 Obesity, unspecified; Z68.39 Body mass index [BMI] 39.0-39.9, adult; Z87.891 Personal history of nicotine dependence; R07.89 Other chest pain; E78.2 Mixed hyperlipidemia; N17.9 Acute kidney failure, unspecified; N18.9 Chronic kidney disease, unspecified; Z79.84 Long term (current) use of oral hypoglycemic drugs; F32.A Depression, unspecified; G47.30 Sleep apnea, unspecified
CPT/HCPCS: 36415; 51702; 80048; 85025; 93458; 96360; 96361; 96376; 99152; 99153; C1760; C1769; C1887; C1894; G0269; J1644; J2250; J3010; J3490; J7030; J7050; Q0163; Q9967

== ENCOUNTER → 2024-04-22 14:00 | Outpatient (BNVA) | payer MEDICARE, MEDICAID, SELFPAY | PROVIDERS: PCP Family Medicine; Visit Provider Nurse Practitioner Family | DX: I25.10 Atherosclerotic heart disease of native coronary artery without angina pectoris (principal); R60.0 Localized edema; I51.89 Other ill-defined heart diseases; R06.02 Shortness of breath; Z87.891 Personal history of nicotine dependence; I10 Essential (primary) hypertension | CPT/HCPCS: 36415; 80048; 83880; 99214 ==

== ENCOUNTER 2024-05-16 11:53 | Outpatient (CLI) | payer MEDICARE, MEDICAID, SELFPAY ==
--- NOTE | 2024-05-16 12:00 | USCV_ITS ---
Galindo Nisha Age: 79 Gender: F : 1945 Exam Date: 05/16/2024 12:24 Ordering Phys: Tanya Musa Technologist: CT Exam Location: [facility] – [place] Indication: BP: 127 / 69 HR: 68 Rhythm: Sinus Technical Quality: Adequate MEASUREMENTS (Male / Female) Normal Values 2D ECHO LVOT Diameter 2.0 cm LV Ejection Fraction MOD 4C 61.9 % LV Ejection Fraction MOD 2C 54.5 % LV Ejection Fraction 2C AL 58.3 % LA Diameter 3.7 cm RA Systolic Volume 4C AL 76.8 ml RA Systolic Volume 4C MOD 74.6 ml LA Sys Volume AL 87.5 cm cubed LA Sys Volume Index AL 40.2 cm cubed/m squared Aorta at Sinotubular Diameter 2.6 cm M-MODE LA Ao Ratio MM 1.5 AV Cusp Separation MM 2.6 cm DOPPLER AV Peak Velocity 120.0 cm/s LVOT Peak Velocity 70.0 cm/s AV Area Cont Eq vti 1.9 cm squared AV Area Cont Eq pk 1.9 cm squared MV Peak Velocity 91.0 cm/s MV Area PHT 3.0 cm squared Mitral E to A Ratio 0.8 TR Peak Velocity 98.0 cm/s TR Peak Gradient 3.8 mmHg TV Peak E Velocity 53.0 cm/s Right Atrial Pressure 3.0 mmHg Pulmonary Artery Systolic Pressu 6.8 mmHg PV Peak Velocity 105.5 cm/s FINDINGS Left Ventricle Left ventricle is normal size. LV systolic function is normal with EF of 55 to 60%. No regional wall motion abnormalities are seen. Grade 1 diastolic dysfunction Right Ventricle Normal in size and function Right Atrium Normal in size Left Atrium Dilated Mitral Valve Structurally normal mitral valve. Trace mitral regurgitation Aortic Valve Structurally normal aortic valve. No significant stenosis or regurgitation. Tricuspid Valve Mild tricuspid regurgitation. Insufficient TR jet to calculate RVSP Pulmonic Valve Not well visualized Pericardium Normal Aorta Normal in size IVC Appears to be normal CONCLUSIONS LV systolic function is normal with EF of 55-60% Grade 1 diastolic dysfunction Left atrial dilation Mild tricuspid regurgitation Compared to prior echocardiogram from 2020, no significant changes are seen. Brock Blair MD (Electronically Signed) Final Date: 18 May 2024 14:22 S
== END 2024-05-16 11:54 | disposition home or self-care (01) ==
LOC: RAD 11:54
PROVIDERS: PCP Family Medicine; Visit Provider Nurse Practitioner Family
DX: I50.30 Unspecified diastolic (congestive) heart failure (principal); I51.89 Other ill-defined heart diseases; I10 Essential (primary) hypertension
CPT/HCPCS: 93306

== ENCOUNTER → 2024-08-07 13:56 | Outpatient (BNVA) | payer MEDICARE, MEDICAID, SELFPAY | PROVIDERS: PCP Family Medicine; Visit Provider Internal Medicine Cardiovascular Disease | DX: I25.10 Atherosclerotic heart disease of native coronary artery without angina pectoris (principal); I11.9 Hypertensive heart disease without heart failure; R06.02 Shortness of breath; E78.2 Mixed hyperlipidemia; Z87.891 Personal history of nicotine dependence | CPT/HCPCS: 36415; 80048; 83880; 99214 ==

== ENCOUNTER → 2024-10-06 09:41 | Outpatient (BNVA) | payer MEDICARE, MEDICAID, SELFPAY | PROVIDERS: PCP Family Medicine; Referring Provider Family Medicine; Visit Provider Anesthesiology Pain Medicine | DX: M54.2 Cervicalgia (principal); M54.9 Dorsalgia, unspecified; Z87.891 Personal history of nicotine dependence | CPT/HCPCS: 72040; 99204 ==

== ENCOUNTER → 2024-10-14 14:31 | Outpatient (BNVA) | payer MEDICARE, MEDICAID, SELFPAY | PROVIDERS: PCP Family Medicine; Visit Provider Anesthesiology Pain Medicine | DX: M47.816 Spondylosis without myelopathy or radiculopathy, lumbar region (principal); M54.9 Dorsalgia, unspecified | CPT/HCPCS: 64493; 64494; 64495; J3490; J9999 ==

== ENCOUNTER 2024-10-24 17:40 | Emergency (ER) | payer MEDICARE, MEDICAID, SELFPAY ==
--- NOTE | 2024-10-24 17:40 | ECG_ITS ---
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 Measurements Intervals [place] Rate: 66 P: 0 NV: 0 QRS: -8 QRSD: 94 T: 132 QT: 616 QTc: 207 Interpretive Statements SUPRAVENTRICULAR RHYTHM. SIGNIFICANT BASELINE ARTIFACT LOW QRS VOLTAGE IN PRECORDIAL LEADS [QRS DEFLECTION < 1.0 mV IN CHEST LEADS] POSSIBLE ANTERIOR MYOCARDIAL INFARCTION , OF INDETERMINATE AGE [30 ms Q WAVE IN V3/V4, OR R < 0.2 mV IN V4] Electronically Signed On 10-27-2024 09:24:10 CDT by Brock Blair M.D. [id number]
--- NOTE | 2024-10-24 17:41 | XRR_ITS ---
PROCEDURE INFORMATION: Exam: XR Chest Exam date and time: 10/24/2024 6:04 PM Age: 79 years old Clinical indication: Pain; Chest pressure; Additional info: Cp TECHNIQUE: Imaging protocol: Radiologic exam of the chest. Views: 1 view. COMPARISON: CR XR chest 1V portable [id number] 03/27/2024 8:25 PM FINDINGS: Lungs: Unremarkable. No consolidation. Pleural spaces: Unremarkable. No pleural effusion. No pneumothorax. Heart/Mediastinum: Stable cardiomediastinal silhouette. Vasculature: Mild atherosclerotic aortic plaques. Bones/joints: Unremarkable. XR/XR chest 1V portable [id number] IMPRESSION: No acute cardiopulmonary process.
[2024-10-24 17:45] VITALS: BP 142/48; PULSE 69; RESP 16; TEMP 36.6; O2SAT 99; BMI 39.8
--- NOTE | 2024-10-24 18:21 | W.ED.CHESTPA ---
HPI - Chest Pain General: Chief Complaint: Chest Pain Stated Complaint: chest pain Time Seen by Provider: 10/24/24 17:41 History of Present Illness: Patient presents with acute onset of chest heaviness and pain that started this morning. The patient describes the sensation as 'like a brick laying on' the chest with associated squeezing sensation. The discomfort radiates to the back and is accompanied by significant nausea, vomiting, diaphoresis, and temporary shortness of breath. Symptoms initially began after breakfast, subsided briefly, then returned after lunch with increased severity. Patient denies history of heartburn. Past Medical History: Notable for irregular heart rhythm (possible atrial fibrillation, not formally diagnosed), Parkinson's disease (with reported increased tremors over the past week), and recent abnormal kidney function tests warranting nephrology referral. Patient had a recent cardiac catheterization with Dr. Mendez showing minimal coronary blockage, though there were concerns about posterior cardiac blood flow. Patient is notably not on blood thinners despite irregular rhythm. No prior history of LA, stents, or other cardiac interventions. Related Data Home Medications ?Medication ?Instructions ?Recorded ?Confirmed lovastatin 40 mg tablet 40 mg PO DAILY 10/14/20 10/14/24 montelukast 10 mg tablet 10 mg PO DAILY 10/14/20 10/14/24 olmesartan 20 mg tablet 20 mg PO DAILY 10/14/20 10/14/24 pantoprazole 40 mg tablet,delayed 40 mg PO DAILY 10/14/20 10/14/24 release lamotrigine 100 mg tablet 200 mg PO DAILY 07/07/21 10/14/24 metoprolol tartrate 50 mg tablet 50 mg PO BID 07/07/21 10/14/24 mecobalamin (vitamin B12) 1,000 1,000 mcg sublingual DAILY 02/05/23 10/14/24 mcg disintegrating tablet,sublingual tramadol 100 mg tablet 50 mg PO Q6H PRN Sleep 02/05/23 10/14/24 carbidopa 25 mg-levodopa 100 mg 1 tab PO TID 02/20/24 10/14/24 tablet hydrocodone 5 mg-acetaminophen 325 1 tab PO Q8H PRN Pain 02/20/24 10/14/24 mg tablet loperamide 2 mg capsule 2 mg PO Q4H PRN Diarrhea 02/20/24 10/14/24 (Anti-Diarrheal (loperamide)) ondansetron 4 mg disintegrating 4 mg PO Q8H 02/20/24 10/14/24 tablet clotrimazole-betamethasone 1 1 applic topical BID 08/07/24 10/14/24 %-0.05 % topical cream dextromethorphan-guaifenesin 10 10 ml PO Q4H PRN 08/07/24 10/14/24 mg-100 mg/5 mL oral liquid diphenhydramine HCl 25 mg tablet 25 mg PO TID PRN 08/07/24 10/14/24 docusate sodium 100 mg capsule 100 mg PO BID 08/07/24 10/14/24 fluticasone propionate 50 1 spray intranasal DAILY 08/07/24 10/14/24 mcg/actuation nasal spray,suspension (Allergy Relief (fluticasone)) magnesium hydroxide 400 mg/5 mL 5 ml PO DAILY PRN 08/07/24 10/14/24 oral suspension (Milk of Magnesia) polyethylene glycol 3350 17 4 g PO DAILY PRN 08/07/24 10/14/24 gram/dose oral powder sennosides 8.6 mg tablet (senna) 8.6 mg PO DAILY 08/07/24 10/14/24 aripiprazole 2 mg tablet 2 mg PO 10/06/24 10/14/24 Previous Rx's ?Medication ?Instructions ?Recorded albuterol sulfate 90 mcg/actuation 2 puff inhalation Q6H PRN 12/20/20 aerosol inhaler (ProAir HFA) shortness of breath or wheezing #8.5 grams albuterol sulfate 2.5 mg/3 mL 2.5 mg (3 mL) inhalation Q6H PRN 12/29/20 (0.083 %) solution for nebulization shortness of breath or wheezing #75 mL galantamine 8 mg tablet 8 mg PO BID 30 days #60 tabs 12/18/22 DME: [place] #1 ea 01/05/23 citalopram 40 mg tablet 40 mg PO DAILY #60 tabs 08/18/23 isosorbide mononitrate 30 mg 30 mg PO DAILY #30 tabs 08/20/23 tablet,extended release 24 hr nitroglycerin 0.4 mg sublingual 0.4 mg sublingual Q5M PRN chest 08/20/23 tablet pain 30 days #30 tabs quetiapine 25 mg tablet (Seroquel) 25 mg PO BID #60 tabs 11/10/23 benzonatate 200 mg capsule 200 mg PO TID PRN cough #30 caps 03/02/24 furosemide 20 mg tablet (Lasix) 20 mg PO DAILY PRN edema #30 tabs 04/09/24 Allergies Allergy/AdvReac Type Severity Reaction Status Date / Time duloxetine Allergy VOMITING Verified 10/14/24 14:41 Sulfa (Sulfonamide Allergy UNKNOWN Verified 10/14/24 14:41 Antibiotics) sulfamethoxazole (From Allergy UNKNOWN Verified 10/14/24 14:41 Septra) trimethoprim (From Septra) Allergy UNKNOWN Verified 10/14/24 14:41 Review of Systems General: Reports: 10 or more systems reviewed and unremarkable except in HPI and below PFSH ED PFSH: Medical History History of cystocele Morbid obesity Hemorrhagic diarrhea Rectal bleeding History of rectocele Chest pain Hyperlipemia Depression Essential tremor Sleep apnea Diabetes mellitus Diastolic dysfunction Surgical History History of rectal surgery Hx of shoulder surgery History of bladder suspension procedure Hx of cataract extraction History of knee replacement Hx of hysterectomy Hx of cholecystectomy Hx of tonsillectomy Family History Family/Other No problems noted. Father CAD (coronary artery disease), Onset Age: 70 Diabetes Mother CAD (coronary artery disease), Onset Age: 60 Grandmother Chronic kidney disease (CKD) Son Lung disease Denies family history of Clotting disorder Dementia Suicide Anesthesia complication Bleeding disorder Cancer Stroke Social History Smoking and tobacco/nicotine status: former use of tobacco/nicotine Quit status (tobacco/nicotine): has quit using Year quit tobacco: 1984 Former quit date comment: 1 PPD X 15 YEARS Alcohol intake: current Alcohol intake frequency: holidays/special occasions only Substance/Drug Use: never Female Reproductive History: Spontaneous abortions: No Physical Exam Const: COMMON NORMALS: no acute distress, patient oriented x3, alert and well nourished HENMT: COMMON NORMALS: normocephalic HEAD & SCALP: normocephalic Eye: COMMON NORMALS: Equal, round and reactive pupils present, EOMs intact bilaterally and conjunctivae normal CONJUNCTIVA: Yes conjunctivae normal PUPIL: Yes Equal, round and reactive pupils present Neck/C-Spine: COMMON NORMALS: full ROM, no lymphadenopathy, supple, no meningeal signs, no JVD and Thyroid normal THYROID: Thyroid normal Chest: COMMONS NORMALS: normal inspection of the chest and normal palpation of entire chest wall Resp: COMMON NORMALS: normal respiratory effort, No retractions, No use of accessory muscles, clear to auscultation bilaterally and percussion normal AUSCULTATION: clear to auscultation bilaterally PERCUSSION: percussion normal Cardio: COMMON NORMALS: no JVD GI: COMMON NORMALS: Normal to inspection, nondistended, normoactive bowel sounds present, Soft to palpation, non-tender, No hepatosplenomegaly present, no masses and no bruits PALPATION: Yes Soft to palpation and Yes No hepatosplenomegaly present : COMMON NORMALS: Yes no CVA tenderness BLADDER/KIDNEY EXAM: Yes no CVA tenderness Back/Pelvis: COMMON NORMALS: no CVA tenderness Extremity: COMMON NORMALS: normal to inspection, full ROM, capillary refill normal, no joint enlargement, no clubbing, cyanosis or edema, no calf tenderness and no pedal edema Neuro: COMMON NORMALS: patient oriented x3 SENSORIUM/ORIENTATION: Yes alert MENINGEAL SIGNS: Yes no meningeal signs Skin: COMMON NORMALS: no rashes or lesions noted, turgor normal and no jaundice GENERAL SKIN EXAM: no rashes or lesions noted and turgor normal Course Vital Signs: Vital signs: Vital Signs Temperature 98 F 10/24/24 17:45 Pulse Rate 63 10/24/24 20:48 Respiratory Rate 20 H 10/24/24 19:17 Blood Pressure 140/82 10/24/24 20:48 Pulse Oximetry 94 10/24/24 20:48 Oxygen Delivery Me thod Room Air 10/24/24 18:22 MDM - Chest Pain Medical Decision Making 1. Acute Chest Pain/Heaviness: - Concerning presentation given symptoms suggestive of acute coronary syndrome - Initial EKG negative for acute LA, but awaiting cardiac enzyme results - Will review prior cardiac catheterization results for better understanding of baseline cardiac status - Differential includes unstable angina, non-ST elevation LA, posterior wall ischemia 2. Possible Atrial Fibrillation: - Requires formal evaluation and consideration for anticoagulation - Will review prior cardiac workup 3. Abnormal Kidney Function: - Pending nephrology evaluation - Will review recent laboratory results 4. Parkinson's Disease: - Note of increased tremors over past week - Will consider if medication adjustment needed Plan: - Cardiac enzyme testing in progress - Chest X-ray ordered - Continue observation and monitoring - Review prior records including cardiac catheterization results - Consider cardiology consultation based on initial results Workup in the emergency department was largely unremarkable. Her delta troponin was not significantly increased and her baseline was mildly elevated but not dissimilar from previous visits. Vital signs remained stable she reports her symptoms largely resolved. The patient's chest x-ray was normal her serial EKGs did not reveal any significant changes the first 1 was somewhat difficult to interpret secondary to low voltage and artifact the second 1 did not reveal any significant ST elevation. The patient's other labs were for the most part unremarkable. Differential Diagnosis Likely acute massive pulmonary embolism, acute respiratory failure and acute myocardial infarction Lab Data 10/24/24 18:01 10/24/24 18:01 Radiology Impressions Chest X-Ray 10/24/24 17:41 IMPRESSION: No acute cardiopulmonary process. Laboratory Results WBC 9.41 10^3/uL (3.29-11.43) 10/24/24 18:01 RBC 3.61 10^6/uL (3.85-5.65) L 10/24/24 18:01 Hgb 10.00 g/dL (11.27-16.99) L 10/24/24 18:01 Hct 32.9 % (36-47) L 10/24/24 18: MCV 91.1 fl (85-98) 10/24/24 18:01 MCH 27.7 pg (27-33) 10/24/24 18:01 MCHC 30.4 g/dL (30-55) 10/24/24 18:01 RDW 17.8 % (12.1-15.1) H 10/24/24 18:01 Plt Count 201 10^3/cmm (157-399) 10/24/24 18:01 MPV 11.3 fL (7.4-10.4) H 10/24/24 18:01 Neut % (Auto) 62.4 % 10/24/24 18:01 Lymph % (Auto) 27.6 % 10/24/24 18:01 [place] % (Auto) 8.3 % 10/24/24 18:01 Eos % (Auto) 0.9 % 10/24/24 18:01 Baso % (Auto) 0.3 % 10/24/24 18:01 Neut # (Auto) 5.87 10^3/uL (1.8-7.7) 10/24/24 18:01 Lymph # (Auto) 2.6 10^3/uL (0.8-4.8) 10/24/24 18:01 [place] # (Auto) 0.8 10^3/uL (0.2-0.9) 10/24/24 18:01 Eos # (Auto) 0.1 10^3/uL (0.0-0.8) 10/24/24 18: Baso # (Auto) 0.0 10^3/uL (0.0-0.1) 10/24/24 18:01 Nucleated RBC % (auto) 0 % 10/24/24 18: Nucleated RBCs # 0.0 /100WBC 10/24/24 18:01 Sodium 136 mmol/L (136-145) 10/24/24 18:01 Potassium 4.7 mmol/L (3.5-5.1) 10/24/24 18: Chloride 100 mmol/L (98-107) 10/24/24 18: Carbon Dioxide 23 mmol/L (22-29) 10/24/24 18: Anion Gap 17.7 (5-19) 10/24/24 18: BUN 27 mg/dL (8-23) H 10/24/24 18: Creatinine 1.4 mg/dL (0.5-0.9) H 10/24/24 18:01 GFR Calculation Not Reportable 10/24/24 18: Glucose 80 mg/dL (65-115) 10/24/24 18: Calculated Osmolality 286 mOsm/kg (285-295) 10/24/24 18: Calcium 9.2 mg/dL (8.5-10.5) 10/24/24 18:01 Total Bilirubin 0.4 mg/dL (0.15-1.2) 10/24/24 18: AST 12 U/L (0-32) 10/24/24 18:01 ALT < 5 U/L (0-33) 10/24/24 18:01 Alkaline Phosphatase 95 U/L (35-105) 10/24/24 18:01 Troponin T Baseline 20 ng/L (0-10) H 10/24/24 18:01 Troponin T 120 Minute 19.93 ng/L (0-10) H 10/24/24 19:58 Delta Troponin T -0.07 ABS# (0-10) L 10/24/24 19:58 Total Protein 7.5 g/dL (6.6-8.7) 10/24/24 18:01 Albumin 4.0 g/dL (3.5-5.2) 10/24/24 18:01 Globulin 3.5 g/dL (1.3-4.6) 10/24/24 18:01 All radiology interpretation(s) finalized by discharge ED provider radiology interpretation(s): Chest XRY read as normal. Discharge Plan Discharge Patient Disposition: Home Clinical Impression: Atypical chest pain Condition: Stable Prescriptions: No Action montelukast 10 mg tablet 10 mg PO DAILY olmesartan 20 mg tablet 20 mg PO DAILY pantoprazole 40 mg tablet,delayed release (DR/EC) 40 mg PO DAILY lovastatin 40 mg tablet 40 mg PO DAILY lamotrigine 100 mg tablet 200 mg PO DAILY tramadol 100 mg tablet 50 mg PO Q6H PRN (Reason: Sleep) metoprolol tartrate 50 mg tablet 50 mg PO BID albuterol sulfate [ProAir HFA] 90 mcg/actuation HFA aerosol inhaler 2 puff inhalation Q6H PRN (Reason: shortness of breath or wheezing) Qty: 8.5 0RF albuterol sulfate 2.5 mg /3 mL (0.083 %) solution for nebulization 2.5 mg inhalation Q6H PRN (Reason: shortness of breath or wheezing) Qty: 75 0RF galantamine 8 mg tablet 8 mg PO BID 30 Days Qty: 60 3RF Rx Instructions: administer with AM and PM meals mecobalamin (vitamin B12) 1,000 mcg tablet,disintegrating 1,000 mcg sublingual DAILY Rx Instructions: place tablet under tongue and allow to dissolve for at least30 secs before swallowing ondansetron 4 mg tablet,disintegrating 4 mg PO Q8H loperamide [Anti-Diarrheal (loperamide)] 2 mg capsule 2 mg PO Q4H PRN (Reason: Diarrhea) Rx Instructions: administer after each loose stool until symptoms controlled; do not exceed 8 mg per 24 hrs carbidopa-levodopa 25-100 mg tablet 1 tab PO TID hydrocodone-acetaminophen 5-325 mg tablet 1 tab PO Q8H PRN (Reason: Pain) nitroglycerin 0.4 mg tablet, sublingual 0.4 mg sublingual Q5M PRN (Reason: chest pain) 30 Days Qty: 30 3RF Rx Instructions: until response; do not exceed 3 doses per episode isosorbide mononitrate 30 mg tablet extended release 24 hr 30 mg PO DAILY Qty: 30 3RF docusate sodium 100 mg capsule 100 mg PO BID fluticasone propionate [Allergy Relief (fluticasone)] 50 mcg/actuation spray,suspension 1 spray intranasal DAILY Rx Instructions: administer into each nostril sennosides [senna] 8.6 mg tablet 8.6 mg PO DAILY polyethylene glycol 3350 17 gram/dose powder 4 g PO DAILY PRN dextromethorphan-guaifenesin 10-100 mg/5 mL liquid 10 ml PO Q4H PRN clotrimazole-betamethasone 1-0.05 % cream 1 applic topical BID diphenhydramine HCl 25 mg tablet 25 mg PO TID PRN magnesium hydroxide [Milk of Magnesia] 400 mg/5 mL suspension 5 ml PO DAILY PRN aripiprazole 2 mg tablet 2 mg PO (DME) DME: Walker Unit See Rx Instructions .Route Qty: 1 0RF Rx Instructions: Wide Wheeled Walker 8 Casters citalopram 40 mg tablet 40 mg PO DAILY Qty: 60 5RF quetiapine [Seroquel] 25 mg tablet 25 mg PO BID Qty: 60 5RF benzonatate 200 mg capsule 200 mg PO TID PRN (Reason: cough) Qty: 30 0RF furosemide [Lasix] 20 mg tablet 20 mg PO DAILY PRN (Reason: edema) Qty: 30 3RF Discharge Orders: Discharge ED (Routine); Ordered 10/24/24 Ordered By: Karel Pompa Referrals: Margo Galindo MD [Primary Care Provider, Family Practice] Discharge Diet: Low Cholesterol Discharge Activity: Resume usual activity Patient Instructions: Opioid Safety, Pain Management Activity Restrictions/Additional Instructions: Call cardiology for follow up on Sunday. Print Language: Salvadorean Coding Level of Care Code ED Export Freight Manager for Tahira Zamora
[2024-10-24 18:22] VITALS: BP 137/64; PULSE 74; RESP 18; O2SAT 96
[2024-10-24 18:30] LABS: Basophils % 0.3 %; Eosinophils # 0.1 10^3/uL (0.0-0.8); Eosinophils % 0.9 %; Hematocrit 32.9 % (36-47); Lymphocytes # 2.6 10^3/uL (0.8-4.8); Lymphocytes % 27.6 %; Mean Corpuscular HGB Conc 30.4 g/dL (30-55); Mean Corpuscular Hemoglobin 27.7 pg (27-33); Mean Corpuscular Volume 91.1 fl (85-98); Mean Platelet Volume 11.3 fL (7.4-10.4); Monocytes # 0.8 10^3/uL (0.2-0.9); Monocytes % 8.3 %; Neutrophils # 5.87 10^3/uL (1.8-7.7); Neutrophils % 62.4 %; Nucleated Red Blood Cells % 0 %; Platelet Count 201 10^3/cmm (157-399); Red Blood Count 3.61 10^6/uL (3.85-5.65); Red Cell Distribution Width 17.8 % (12.1-15.1); White Blood Count 9.41 10^3/uL (3.29-11.43)
[2024-10-24 18:50] LABS: Alanine Aminotransferase < 5 U/L (0-33); Alkaline Phosphatase 95 U/L (35-105); Anion Gap 17.7 (5-19); Aspartate Amino Transferase 12 U/L (0-32); Blood Urea Nitrogen 27 mg/dL (8-23); Calcium 9.2 mg/dL (8.5-10.5); Carbon Dioxide 23 mmol/L (22-29); Chloride 100 mmol/L (98-107); Creatinine Clr Calc Pharmacy 37.7805; Globulin 3.5 g/dL (1.3-4.6); Glucose 80 mg/dL (65-115); Osmolality Calculated 286 mOsm/kg (285-295); Potassium 4.7 mmol/L (3.5-5.1); Sodium 136 mmol/L (136-145); Total Bilirubin 0.4 mg/dL (0.15-1.2); Total Protein 7.5 g/dL (6.6-8.7)
[2024-10-24 18:53] LABS: Troponin(5th) Baseline 20 ng/L (0-10)
--- NOTE | 2024-10-24 19:11 | PC.NURSE ---
Assumed care from Janette CABRERA at this time.
[2024-10-24 19:17] VITALS: BP 119/73; PULSE 70; RESP 20
--- NOTE | 2024-10-24 19:45 | ECG_ITS ---
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 Measurements Intervals [place] Rate: 70 P: 109 CO: 270 QRS: -39 QRSD: 92 T: 133 QT: 402 QTc: 436 Interpretive Statements SUPRAVENTRICULAR RHYTHM INDETERMINATE AXIS LOW QRS VOLTAGE IN PRECORDIAL LEADS [QRS DEFLECTION < 1.0 mV IN CHEST LEADS] INCOMPLETE RIGHT BUNDLE BRANCH BLOCK [90+ ms QRS DURATION, TERMINAL R IN V1/V2, 40+ ms S IN I/aVL/V4/V5/V6] MINIMAL ST DEPRESSION [0.025+ mV ST DEPRESSION] ABNORMAL QRS-T ANGLE [QRS-T AXIS DIFFERENCE > 60] Compared to ECG 10/24/2024 17:40:33 First degree AV block now present Indeterminate axis now present Incomplete right bundle-branch block now present ST (T wave) deviation still present Electronically Signed On 10-27-2024 10:26:08 CDT by Brock Blair M.D. [email or web address] [id number]
[2024-10-24 20:31] LABS: Troponin 5 2HR 19.93 ng/L (0-10)
[2024-10-24 20:32] LABS: Troponin 5 2HR Delta -0.07 ABS# (0-10)
[2024-10-24 20:48] VITALS: BP 140/82; PULSE 63; O2SAT 94
[2024-10-24 21:08] VITALS: BP 140/82; PULSE 71; O2SAT 100
== END 2024-10-24 21:10 | disposition home or self-care (01) ==
PROVIDERS: Emergency Medicine; Emergency Provider Family Medicine; PCP Family Medicine
DX: R07.89 Other chest pain (principal); Z87.891 Personal history of nicotine dependence; E11.9 Type 2 diabetes mellitus without complications; E78.5 Hyperlipidemia, unspecified
CPT/HCPCS: 36415; 71045; 80053; 84484; 85025; 93005; 99285

== ENCOUNTER → 2024-10-27 12:46 | Outpatient (BNVA) | payer MEDICARE, MEDICAID, SELFPAY | PROVIDERS: PCP Family Medicine; Visit Provider Anesthesiology Pain Medicine | DX: M54.9 Dorsalgia, unspecified (principal); M54.2 Cervicalgia | CPT/HCPCS: 99214 ==

== ENCOUNTER → 2024-10-30 09:02 | Outpatient (BNVA) | payer MEDICARE, MEDICAID, SELFPAY | PROVIDERS: PCP Family Medicine; Visit Provider Specialist | DX: G20.A1 Parkinson's disease without dyskinesia, without mention of fluctuations (principal); G31.84 Mild cognitive impairment of uncertain or unknown etiology; R29.90 Unspecified symptoms and signs involving the nervous system; G25.0 Essential tremor; F33.1 Major depressive disorder, recurrent, moderate; R11.0 Nausea | CPT/HCPCS: 99214 ==

== ENCOUNTER → 2024-11-03 10:41 | Outpatient (BNVA) | payer MEDICARE, MEDICAID, SELFPAY | PROVIDERS: PCP Family Medicine; Visit Provider Nurse Practitioner Family | DX: I25.10 Atherosclerotic heart disease of native coronary artery without angina pectoris (principal); I11.9 Hypertensive heart disease without heart failure; E78.2 Mixed hyperlipidemia; F17.210 Nicotine dependence, cigarettes, uncomplicated | CPT/HCPCS: 99214 ==

== ENCOUNTER → 2024-11-11 13:33 | Outpatient (BNVA) | payer MEDICARE, MEDICAID, SELFPAY | PROVIDERS: PCP Family Medicine; Visit Provider Anesthesiology Pain Medicine | DX: M47.816 Spondylosis without myelopathy or radiculopathy, lumbar region (principal); M54.9 Dorsalgia, unspecified | CPT/HCPCS: 64493; 64494; 64495; J3490; J9999 ==

== ENCOUNTER → 2024-12-05 09:58 | Outpatient (BNVA) | payer MEDICARE, MEDICAID, SELFPAY | PROVIDERS: PCP Family Medicine; Visit Provider Nurse Practitioner Family | DX: I25.10 Atherosclerotic heart disease of native coronary artery without angina pectoris (principal); E78.2 Mixed hyperlipidemia; R06.83 Snoring; G47.33 Obstructive sleep apnea (adult) (pediatric); I48.0 Paroxysmal atrial fibrillation; I11.9 Hypertensive heart disease without heart failure; Z87.891 Personal history of nicotine dependence | CPT/HCPCS: 36415; 80048; 85025; 99213 ==

== ENCOUNTER → 2024-12-09 13:30 | Outpatient (BNVA) | payer MEDICARE, MEDICAID, SELFPAY | PROVIDERS: PCP Family Medicine; Visit Provider Anesthesiology Pain Medicine | DX: M19.019 Primary osteoarthritis, unspecified shoulder (principal); M54.9 Dorsalgia, unspecified; M54.2 Cervicalgia | CPT/HCPCS: 20610; 99214; J1010; J3490 ==

== ENCOUNTER 2024-12-22 11:00 | Outpatient (CLI) | payer MEDICARE, MEDICAID, SELFPAY ==
--- NOTE | 2024-12-22 11:00 | MR_ITS ---
WS: [id number] MRI CERVICAL SPINE NONCONTRAST TECHNIQUE: Sagittal T1, T2 and STIR imaging. Axial T2, gradient, and fiesta imaging. CLINICAL INFORMATION: M54.12 - Radiculopathy, cervical region COMPARISON: None. FINDINGS: Straightening of the normal cervical lordosis. Moderate spondylitic changes. C2-C3: Shallow central protrusion. Slight contact of the cervical cord. Mild facet arthropathy. Mild LEFT bony foraminal narrowing. C3-C4: Disc osteophyte protrusion with slight contact of the cervical cord. Mild central canal stenosis. Severe RIGHT greater than LEFT bony foraminal narrowing. Mild facet arthropathy. C4-C5: Central disc osteophyte complex with mild to moderate central canal stenosis. Moderate to severe RIGHT greater than LEFT bony foraminal narrowing. Moderate facet arthropathy worse on the RIGHT. C5-C6: LEFT paracentral disc osteophyte complex with indentation on the cervical cord. Moderate central canal stenosis. Severe LEFT and moderate RIGHT bony foraminal narrowing. Mild facet arthropathy. Uncovertebral joint hypertrophy. C6-C7: Tiny central disc osteophyte complex with mild to moderate central canal stenosis. Moderate to severe RIGHT greater than LEFT bony foraminal narrowing. Uncovertebral joint hypertrophy. C7-T1: Disc osteophyte complex with endplate ridging. Severe RIGHT greater than LEFT bony foraminal narrowing. Mild central canal stenosis. T1-T2: Slight anterolisthesis T1 on T2. Mild to moderate RIGHT greater than LEFT bony foraminal narrowing. Partially visualized nodular enlarged RIGHT thyroid MR/MR cervical spin wo con* [id number] IMPRESSION: 1. Moderate spondylitic changes with multilevel mild to moderate central canal stenosis described above with small disc osteophyte protrusions worse at C5-6. 2. Multilevel moderate to severe bony foraminal narrowing described above wors e at bilateral C3-4, RIGHT C4-5, LEFT C5-6, bilateral C6-7, and bilateral C7-1
== END 2024-12-22 11:01 | disposition home or self-care (01) ==
LOC: RAD 11:02
PROVIDERS: PCP Family Medicine; Visit Provider Anesthesiology Pain Medicine
DX: M47.22 Other spondylosis with radiculopathy, cervical region (principal)
CPT/HCPCS: 72141

== ENCOUNTER → 2024-12-24 13:06 | Outpatient (BNVA) | payer MEDICARE, MEDICAID, SELFPAY | PROVIDERS: PCP Family Medicine; Visit Provider Anesthesiology Pain Medicine | DX: M47.816 Spondylosis without myelopathy or radiculopathy, lumbar region (principal); M54.9 Dorsalgia, unspecified | CPT/HCPCS: 36416; 64635; 64636; 82962; J1100; J9999 ==

== ENCOUNTER 2024-12-29 14:39 | Emergency (ER) | payer MEDICARE, MEDICAID, SELFPAY ==
[2024-12-29 14:42] VITALS: BP 122/67; PULSE 66; TEMP 36.8; O2SAT 96; BMI 38.9
--- NOTE | 2024-12-29 14:49 | ECG_ITS ---
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 Measurements Intervals [place] Rate: 62 P: 0 NM: 0 QRS: -14 QRSD: 94 T: 28 QT: 420 QTc: 428 Interpretive Statements SUPRAVENTRICULAR RHYTHM LOW QRS VOLTAGE IN PRECORDIAL LEADS [QRS DEFLECTION < 1.0 mV IN CHEST LEADS] PATTERN CONSISTENT WITH PULMONARY DISEASE INCOMPLETE RIGHT BUNDLE BRANCH BLOCK [90+ ms QRS DURATION, TERMINAL R IN V1/V2, 40+ ms S IN I/aVL/V4/V5/V6] NONSPECIFIC ST & T-WAVE ABNORMALITY Compared to ECG 10/24/2024 19:45:15 T-wave abnormality now present Indeterminate axis no longer present ST (T wave) deviation no longer present Electronically Signed On 12-30-2024 08:19:52 CDT by Brock Blair M.D. [email or web address] [id number]
--- NOTE | 2024-12-29 14:49 | XRR_ITS ---
PROCEDURE INFORMATION: Exam: XR Chest Exam date and time: 12/29/2024 5:06 PM Age: 79 years old Clinical indication: Pain; Chest pressure; Additional info: Cp since this morning TECHNIQUE: Imaging protocol: Radiologic exam of the chest. Views: 1 view. COMPARISON: CR XR chest 1V portable [id number] 10/24/2024 6:04 PM FINDINGS: Lungs: Unchanged basilar fibrosis/scarring. The lungs are hyperinflated.. No consolidation. Pleural spaces: Unremarkable. No pleural effusion. No pneumothorax. Heart/Mediastinum: Unchanged cardiomegaly. Bones/joints: No acute abnormality. XR/XR chest 1V portable [id number] IMPRESSION: No acute findings. Unchanged exam.
--- OUTSIDE RECORDS SUMMARY | 2024-12-29 14:51 | XMS_ITS | Patient Health Record ---
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 Name Role Phone Rajeev Gamble MD Primary Care Provider Amna Nunn MD, [facility] [phone] Allergies Allergen (clinical drug ingredient) Drug/Non Drug Allergy documented on EMR Reaction Allergy Type Onset Date Status sulfa drugs (uncoded) Unknown Allergy Active Septra Unknown Drug Allergy Active Reason For Referral No Information Medications Medication SIG (Take, Route, Frequency, Duration) Notes Start Date End Date Status losartan 50 mg 1 tab orally once a day Active lamoTRIgine 200 mg 1 tab orally once a day Active lovastatin 40 mg 1 tab orally once a day Active Metoprolol Tartrate 50 mg 1 tab orally 2 times a day Active montelukast 10 mg 1 tab orally once a day Active traMADol 50 mg 1 tab po orally QID prn pain Active ibuprofen 200 mg 2 tabs po orally Q6H prn pain Active aspirin 81 mg orally as directed Active omeprazole 40 mg 1 cap orally 2 times a day Active desvenlafaxine 100 mg 1 tab orally once a day Active metFORMIN 500 mg 1 tab orally 2 times a day Active Social History Tobacco Use: Social History Observation Description Date Details (start date - stop date) Former Smoker NA - NA alcohol Question Answer Notes Did you have a drink containing alcohol in the p ast year? No Points 0 Interpretation Negative Tobacco use: Question Answer Notes : former smoker How long has it been since you last smoked? > 10 years Problems Problem Type SNOMED Code ICD Code Onset Dates Problem Status W/U Status Risk Notes Problem Solitary sacroiliitis (384587352) Sacroiliitis, not elsewhere classified (M46.1) Active confirmed Problem Low back pain (909844802) Low back pain (M54.5) Active confirmed Problem Lumbosacral spondylosis without myelopathy (27933040) Spondylosis without myelopathy or radiculopathy, lumbar region (M47.816) Active confirmed Problem Anxiety disorder (233806463) Other specified anxiety disorders (F41.8) Active confirmed Problem Obstructive sleep apnea syndrome (98161552) Obstructive sleep apnea (adult) (pediatric) (G47.33) Active confirmed Problem Acquired spondylolisthesis (370760271) Spondylolisthes is, lumbar region (M43.16) Active confirmed Problem Long-term current use of drug therapy (776191258) Other long-term (current) drug therapy (Z79.899) Active confirmed Problem Spinal stenosis of lumbar region (25620884) Spinal stenosis, lumbar region without neurogenic claudication (M48.061) Active confirmed Plan Of Treatment No Information Insurance Providers Payer Name Payer Address Payer Phone Subscriber Number Group Number Insured Name Patient Relationship to Insured Coverage Start Date Coverage End Date [facility] [address] [address] [place] [address] [phone] [id number] Nisha Galindo Self - patient is the insured Medical (General) History Medical History History ICD Code Back pain Anemia Depression Fibromyalgia Chronic GERD Hyperlipidemia Osteoarthritis Osteoporosis Incomplete right rotator cuff tear Sleep apnea Diabetes mellitus type II Thyroid nodules Carpal tunnel syndrome, bilateral Right shoulder pain Surgical History Surgery Date(Month/Year) Tonsillectomy Bladder suspension Hysterectomy, 1975 Cholecystectomy, 1975 Repair of cystocele and rectocele Right arthroscopy Left arthroscopy Rectal surgery, 2000 Unicompartmental left knee replacement, 2003 Left shoulder arthroscopy, 2007 Hospitalization History Reason Date(Month/Year) Diverticulitis, 2009
--- OUTSIDE RECORDS SUMMARY | 2024-12-29 14:51 | XMS_ITS | Clinical Summary ---
Author Organization [facility] Address [address] Attn: [place] [address] Care Team Providers Care Teacher Of The Deaf/Hard Of Hearing Name Role Phone Unavailable Primary Care Provider Unavailabl e Allergies No known active allergies Active Problems Problem Noted Date Diagnosed Date Lesion of mouth 11/28/2008 Social History Tobacco Use Types Packs/Day Years Used Date Smoking Tobacco: Never Alcohol Use Standard Drinks/Week Comments No 0 (1 standard drink = 0.6 oz pur e alcohol) Comments Unknown Sex and Gender Information Value Date Recorded Sex Assigned at Not on file 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
--- OUTSIDE RECORDS SUMMARY | 2024-12-29 14:51 | XMS_ITS | Clinical Summary ---
Author Organization [facility] Address [address] [address] Care Team Providers Care Nuclear Medicine Medical Director Name Role Phone Unavailable Primary Care Provider Unavailabl e Allergies No known active allergies Medications penicillin V potassium (VEETID) 500 mg Oral TabIndications: Neoplasm of uncertain behavior of lip, oral cavity, and pharynx Take 1 Tab by mouth 4 times daily. 28 Tab 0 12/04/2008 Active ibuprofen (MOTRIN) 800 mg Oral TabIndications: Neoplasm of uncertain behavior of lip, oral cavity, and pharynx Take 1 Tab by mouth every 6 hours as needed for Pain. 21 Tab 0 12/04/2008 Active chlorhexidine gluconate (PERIDEX) 0.12 % MM MwshIndications :Neoplasm of uncertain behavior of lip, oral cavity, and pharynx 15 mL by Mouth/Throat route 2 times daily. 1 Bottle 0 12/04/2008 Active PRILOSEC PO Take by mouth. Active NORVASC PO Take by mouth. Active PREMARIN PO Take by mouth. Active TRAMADOL PO Take by mouth. Active CYMBALTA PO Take by mouth. Active HYDROCODONE-MIRZA TAMINOPHEN 5-325 mg Oral Tab Take 1 Tab by mouth every 4 hours as needed for Pain. Active triamcinolone acetonide (KENALOG) 0.1 % DT PsteIndications :Lesion of mouth Apply to affected area 3 times daily. 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 Gender Identity Not on file Sexual Orientation Not on file Last Filed Vital Signs Vital Sign Reading Time Taken Comments Blood Pressure 100/71 12/04/2008 9:19 AM CDT Pulse 62 12/04/2008 9:19 AM CDT Temperature - - Respiratory Rate - - Oxygen Saturation 96% 12/04/2008 9:19 AM CDT Inhaled Oxygen Concentration - - Weight 97.5 kg (215 lb) 12/04/2008 9:19 AM CDT Height 160 cm (5' 3 ) 12/04/2008 9:19 AM CDT Body Mass Index 38.09 12/04/2008 9:19 AM CDT Plan of Treatment Health Maintenance Due Date Last Done Comments DTAP/TDAP/TD VACCINES (1 - Tdap) 1965 PNEUMOCOCCAL VACCINE 50+ YEARS (1 of 1 - PCV) 05/10/19 96 ZOSTER VACCINE (1 of 2) 1996 OSTEOPOROSIS SCREENING 2011 RSV VACCINE (60+ or ) (1 - 1-dose 75+ series) 2021 INFLUENZA VACCINE (#1) 2025 Insurance MEDICAID [place]
[2024-12-29 15:35] LABS: Hematocrit 30.6 % (36-47); Hemoglobin 9.30 g/dL (11.27-16.99); Mean Corpuscular HGB Conc 30.4 g/dL (30-55); Mean Corpuscular Hemoglobin 28.3 pg (27-33); Mean Corpuscular Volume 93.0 fl (85-98); Nucleated Red Blood Cells % 0 %; Platelet Count 180 10^3/cmm (157-399); Red Blood Count 3.29 10^6/uL (3.85-5.65); White Blood Count 9.27 10^3/uL (3.29-11.43)
[2024-12-29 15:44] LABS: INR 1.15 (0.8-1.2); Prothrombin Time 15.50 SECONDS (12.1-14.9)
[2024-12-29 15:51] LABS: Troponin(5th) Baseline 20 ng/L (0-10)
[2024-12-29 15:56] LABS: Alanine Aminotransferase < 5 U/L (0-33); Albumin Level 3.9 g/dL (3.5-5.2); Alkaline Phosphatase 96 U/L (35-105); Anion Gap 17.0 (5-19); Aspartate Amino Transferase 7 U/L (0-32); Blood Urea Nitrogen 25 mg/dL (8-23); Calcium 8.8 mg/dL (8.5-10.5); Carbon Dioxide 24 mmol/L (22-29); Chloride 101 mmol/L (98-107); Creatinine Clr Calc Pharmacy 37.3062; Globulin 3.0 g/dL (1.3-4.6); Glucose 105 mg/dL (65-115); Lipase 13 U/L (13-60); Osmolality Calculated 289 mOsm/kg (285-295); Potassium 5.0 mmol/L (3.5-5.1); Sodium 137 mmol/L (136-145); Total Protein 6.9 g/dL (6.6-8.7)
--- NOTE | 2024-12-29 16:49 | ECG_ITS ---
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 Measurements Intervals [place] Rate: 59 P: 0 NV: 0 QRS: -6 QRSD: 92 T: 30 QT: 383 QTc: 381 Interpretive Statements SUPRAVENTRICULAR RHYTHM LOW QRS VOLTAGE IN PRECORDIAL LEADS [QRS DEFLECTION < 1.0 mV IN CHEST LEADS] INCOMPLETE RIGHT BUNDLE BRANCH BLOCK [90+ ms QRS DURATION, TERMINAL R IN V1/V2, 40+ ms S IN I/aVL/V4/V5/V6] NONSPECIFIC ST & T-WAVE ABNORMALITY Compared to ECG 12/29/2024 14:49:28 No significant changes Electronically Signed On 12-30-2024 08:33:06 CDT by Brock Blair M.D. [email or web address]
[2024-12-29 17:49] LABS: Troponin 5 2HR 20.54 ng/L (0-10); Troponin 5 2HR Delta 0.54 ABS# (0-10)
--- NOTE | 2024-12-29 18:15 | CTR_ITS ---
PROCEDURE INFORMATION: Exam: CTA Chest With Contrast Exam date and time: 12/29/2024 6:33 PM Age: 79 years old Clinical indication: Pain; On breathing; Additional info: Sob/cp TECHNIQUE: Imaging protocol: Computed tomographic angiography of the chest with contrast. Exam focused on the arteries. 3D rendering (Not supervised by radiologist): MIP and/or 3D reconstructed images were created by the technologist. Radiation optimization: All CT scans at this facility use at least one of these dose optimization techniques: automated exposure control; mA and/or kV adjustment per patient size (includes targeted exams where dose is matched to clinical indication); or iterative reconstruction. Contrast material: OMNIPAQUE 350; Contrast volume: 75 ml; Contrast route: INTRAVENOUS (IV); COMPARISON: CT chest wo [facility] [id number] 02/16/2023 3:13 PM RADIATION DOSE METRICS: Total DLP (mGy-cm): 454.44 FINDINGS: Pulmonary arteries: There is no pulmonary embolism. Aorta: Unremarkable. No aortic aneurysm. No aortic dissection. Thyroid: 3 cm nodule right lobe of the thyroid gland unchanged. Lungs: Unchanged 2 mm calcified nodule left lung adjacent to the fissure. No new or enlarging pulmonary nodule. No consolidation. Pleural spaces: Unremarkable. No pneumothorax. No pleural effusion. Heart: The heart is enlarged. Lymph nodes: Unremarkable. No enlarged lymph nodes. Diaphragm: A small hiatal hernia is present. Adrenal glands: Unchanged 3 cm partially calcified left adrenal mass. The right adrenal gland is normal. Bones/joints: Unremarkable. No acute fracture. Soft tissues: Unremarkable. CT/CT angio chest PE protcl [id number] IMPRESSION: 1. There is no pulmonary embolism. 2. 3 cm nodule right lobe of the thyroid gland unchanged. 3. No new or enlarging pulmonary nodule. Unchanged calcified nodule adjacent to the left fissure/calcified granuloma. 4. Unchanged 3 cm partially calcified left adrenal mass.
[2024-12-29 18:18] VITALS: BP 126/63; PULSE 70; RESP 16; O2SAT 95
[2024-12-29] MEDS: iohexol 350 mg/mL 500 mL Btl (per mL) IV (18:36)
--- NOTE | 2024-12-29 18:39 | W.ED.CHESTPA ---
HPI - Chest Pain General: Chief Complaint: Chest Pain Stated Complaint: chest pain - dizziness Time Seen by Provider: 12/29/24 17:51 Source: patient Mode of arrival: ambulatory Limitations: no limitations History of Present Illness: 79-year-old female states that she is here from assisted living states she been having some chest pain earlier's morning that she is having some shortness of breath some diaphoresis as well. States the pain is improved currently she rates her pain a 2 out of 10 she denies any abdominal pain denies any vomiting or diarrhea denies any cough or fever Associated symptoms: Reports dyspnea; Deny abdominal pain, fever(s), nausea or vomiting Related Data Home Medications ?Medication ?Instructions ?Recorded ?Confirmed lovastatin 40 mg tablet 40 mg PO DAILY 10/14/20 12/24/24 montelukast 10 mg tablet 10 mg PO DAILY 10/14/20 12/24/24 olmesartan 20 mg tablet 20 mg PO DAILY 10/14/20 12/24/24 pantoprazole 40 mg tablet,delayed 40 mg PO DAILY 10/14/20 12/24/24 release lamotrigine 100 mg tablet 200 mg PO DAILY 07/07/21 12/24/24 mecobalamin (vitamin B12) 1,000 1,000 mcg sublingual DAILY 02/05/23 12/24/24 mcg disintegrating tablet,sublingual tramadol 100 mg tablet 50 mg PO Q6H PRN Sleep 02/05/23 12/24/24 carbidopa 25 mg-levodopa 100 mg 1 tab PO TID 02/20/24 12/24/24 tablet hydrocodone 5 mg-acetaminophen 325 1 tab PO Q8H PRN Pain 02/20/24 12/24/24 mg tablet loperamide 2 mg capsule 2 mg PO Q4H PRN Diarrhea 02/20/24 12/24/24 (Anti-Diarrheal (loperamide)) ondansetron 4 mg disintegrating 4 mg PO Q8H 02/20/24 12/24/24 tablet clotrimazole-betamethasone 1 1 applic topical BID 08/07/24 12/24/24 %-0.05 % topical cream dextromethorphan-guaifenesin 10 10 ml PO Q4H PRN 08/07/24 12/24/24 mg-100 mg/5 mL oral liquid diphenhydramine HCl 25 mg tablet 25 mg PO TID PRN 08/07/24 12/24/24 docusate sodium 100 mg capsule 100 mg PO BID 08/07/24 12/24/24 fluticasone propionate 50 1 spray intranasal DAILY 08/07/24 12/24/24 mcg/actuation nasal spray,suspension (Allergy Relief (fluticasone)) magnesium hydroxide 400 mg/5 mL 5 ml PO DAILY PRN 08/07/24 12/24/24 oral suspension (Milk of Magnesia) polyethylene glycol 3350 17 4 g PO DAILY PRN 08/07/24 12/24/24 gram/dose oral powder sennosides 8.6 mg tablet (senna) 8.6 mg PO DAILY 08/07/24 12/24/24 aripiprazole 2 mg tablet 2 mg PO 10/06/24 12/24/24 potassium chloride 10 mEq 10 meq PO DAILY 11/03/24 12/24/24 tablet,extended release (Klor-Con) Previous Rx's ?Medication ?Instructions ?Recorded albuterol sulfate 90 mcg/actuation 2 puff inhalation Q6H PRN 12/20/20 aerosol inhaler (ProAir HFA) shortness of breath or wheezing #8.5 grams albuterol sulfate 2.5 mg/3 mL 2.5 mg (3 mL) inhalation Q6H PRN 12/29/20 (0.083 %) solution for nebulization shortness of breath or wheezing #75 mL galantamine 8 mg tablet 8 mg PO BID 30 days #60 tabs 12/18/22 DME: [place] #1 ea 01/05/23 citalopram 40 mg tablet 40 mg PO DAILY #60 tabs 08/18/23 isosorbide mononitrate 30 mg 30 mg PO DAILY #30 tabs 08/20/23 tablet,extended release 24 hr nitroglycerin 0.4 mg sublingual 0.4 mg sublingual Q5M PRN chest 08/20/23 tablet pain 30 days #30 tabs quetiapine 25 mg tablet (Seroquel) 25 mg PO BID #60 tabs 11/10/23 furosemide 20 mg tablet (Lasix) 20 mg PO DAILY PRN edema #30 tabs 04/09/24 metoprolol tartrate 25 mg tablet 12.5 mg (1/2 x 25 mg) PO BID #30 11/03/24 tabs apixaban 5 mg tablet (Eliquis) 2.5 mg (1/2 x 5 mg) PO BID #60 tabs 12/05/24 lorazepam 0.5 mg tablet (Ativan) 0.5 mg PO DAILY PRN anxiety #1 tab 12/23/24 Allergies Allergy/AdvReac Type Severity Reaction Status Date / Time duloxetine Allergy VOMITING Verified 12/29/24 14:55 Sulfa (Sulfonamide Allergy UNKNOWN Verified 12/29/24 14:55 Antibiotics) sulfamethoxazole (From Allergy UNKNOWN Verified 12/29/24 14:55 Septra) trimethoprim (From ) Allergy UNKNOWN Verified 12/29/24 14:55 Review of Systems Const: Denies: fever(s), chills, body aches or change in appetite ENMT: Denies: throat pain or dental pain Card: Reports: chest pain Resp: Reports: dyspnea GI: Denies: abdominal pain, nausea, vomiting or diarrhea Musc: Denies: neck pain or back pain Skin/Breast: Denies: rash Neuro: Denies: headache(s) PFSH ED PFSH: Medical History History of cystocele Morbid obesity Hemorrhagic diarrhea Rectal bleeding History of rectocele Chest pain Hyperlipemia Depression Essential tremor Sleep apnea Diabetes mellitus Diastolic dysfunction Surgical History History of rectal surgery Hx of shoulder surgery History of bladder suspension procedure Hx of cataract extraction History of knee replacement Hx of hysterectomy Hx of cholecystectomy Hx of tonsillectomy Family History Family/Other No problems noted. Father CAD (coronary artery disease), Onset Age: 70 Diabetes Mother CAD (coronary artery disease), Onset Age: 60 Grandmother Chronic kidney disease (CKD) Son Lung disease Denies family history of Clotting disorder Dementia Suicide Anesthesia complication Bleeding disorder Cancer Stroke Social History Smoking and tobacco/nicotine status: former use of tobacco/nicotine Quit status (tobacco/nicotine): has quit using Year quit tobacco: 1984 Former quit date comment: 1 PPD X 15 YEARS Alcohol intake: current Alcohol intake frequency: holidays/special occasions only Substance/Drug Use: never Female Reproductive History: Spontaneous abortions: No Physical Exam Const: COMMON NORMALS: no acute distress, patient oriented x3 and healthy appearing HENMT: COMMON NORMALS: normocephalic and atraumatic HEAD & SCALP: normocephalic and atraumatic Eye: COMMON NORMALS: Equal, round and reactive pupils present and EOMs intact bilaterally PUPIL: Yes Equal, round and reactive pupils present Neck/C-Spine: COMMON NORMALS: full ROM and supple Chest: COMMONS NORMALS: normal inspection of the chest and normal palpation of entire chest wall Resp: COMMON NORMALS: normal respiratory effort, No retractions, No use of accessory muscles and clear to auscultation bilaterally AUSCULTATION: clear to auscultation bilaterally Cardio: COMMON NORMALS: regular rate, regular rhythm and No murmurs present (Cardio) RATE: regular rate RHYTHM: regular rhythm GI: COMMON NORMALS: Normal to inspection, nondistended, normoactive bowel sounds present, Soft to palpation, non-tender and no masses PALPATION: Yes Soft to palpation Extremity: COMMON NORMALS: normal to inspection and full ROM Neuro: COMMON NORMALS: patient oriented x3, moves all extremities and no focal motor deficits Psych: COMMON NORMALS: mental status grossly normal, Normal thought process present and cooperative THOUGHT PROCESS: Normal thought process present Skin: COMMON NORMALS: no rashes or lesions noted and no wounds GENERAL SKIN EXAM: no rashes or lesions noted Course Vital Signs: Vital signs: Vital Signs Temperature 98.2 F 12/29/24 14:42 Pulse Rate 70 12/29/24 18:18 Respiratory Rate 16 12/29/24 18:18 Blood Pressure 126/63 12/29/24 18:18 Pulse Oximetry 95 12/29/24 18:18 Oxygen Delivery Me thod Nasal Cannula 12/29/24 14:42 MDM - Chest Pain Medical Decision Making Patient presents here chest pain she is currently chest pain-free here 2-hour troponin showed no change CTA here is normal she is stable for discharge she is to follow-up with her PCP and return if worsening she understands agrees to plan Medical Records I reviewed the patient's medical records. Lab Data I reviewed the patient's lab results. 12/29/24 15:15 12/29/24 15:15 Radiology Impressions Chest X-Ray 12/29/24 14:49 IMPRESSION: No acute findings. Unchanged exam. Chest CTA 12/29/24 18:15 IMPRESSION: 1. There is no pulmonary embolism. 2. 3 cm nodule right lobe of the thyroid gland unchanged. 3. No new or enlarging pulmonary nodule. Unchanged calcified nodule adjacent to the left fissure/calcified granuloma. 4. Unchanged 3 cm partially calcified left adrenal mass. Laboratory Results WBC 9.27 10^3/uL (3.29-11.43) 12/29/24 15:15 RBC 3.29 10^6/uL (3.85-5.65) L 12/29/24 15:15 Hgb 9.30 g/dL (11.27-16.99) L 12/29/24 15:15 Hct 30.6 % (36-47) L 12/29/24 15:15 MCV 93.0 fl (85-98) 12/29/24 15:15 MCH 28.3 pg (27-33) 12/29/24 15:15 MCHC 30.4 g/dL (30-55) 12/29/24 15:15 RDW 15.6 % (12.1-15.1) H 12/29/24 15:15 Plt Count 180 10^3/cmm (157-399) 12/29/24 15:15 MPV 11.5 fL (7.4-10.4) H 12/29/24 15:15 Neut % (Auto) 62.1 % 12/29/24 15:15 Lymph % (Auto) 29.8 % 12/29/24 15:15 [place] % (Auto) 7.1 % 12/29/24 15:15 Eos % (Auto) 0.3 % 12/29/24 15:15 Baso % (Auto) 0.2 % 12/29/24 15:15 Neut # (Auto) 5.75 10^3/uL (1.8-7.7) 12/29/24 15:15 Lymph # (Auto) 2.8 10^3/uL (0.8-4.8) 12/29/24 15:15 [place] # (Auto) 0.7 10^3/uL (0.2-0.9) 12/29/24 15:15 Eos # (Auto) 0.0 10^3/uL (0.0-0.8) 12/29/24 15:15 Baso # (Auto) 0.0 10^3/uL (0.0-0.1) 12/29/24 15:15 Nucleated RBC % (auto) 0 % 12/29/24 15:15 Nucleated RBCs # 0.0 /100WBC 12/29/24 15:15 PT 15.50 SECONDS (12.1-14.9) H 12/29/24 15:15 INR 1.15 (0.8-1.2) 12/29/24 15:15 Sodium 137 mmol/L (136-145) 12/29/24 15:15 Potassium 5.0 mmol/L (3.5-5.1) 12/29/24 15:15 Chloride 101 mmol/L (98-107) 12/29/24 15:15 Carbon Dioxide 24 mmol/L (22-29) 12/29/24 15:15 Anion Gap 17.0 (5-19) 12/29/24 15:15 BUN 25 mg/dL (8-23) H 12/29/24 15:15 Creatinine 1.4 mg/dL (0.5-0.9) H 12/29/24 15:15 GFR Calculation Not Reportable 12/29/24 15:15 Glucose 105 mg/dL (65-115) 12/29/24 15:15 Calculated Osmolality 289 mOsm/kg (285-295) 12/29/24 15:15 Calcium 8.8 mg/dL (8.5-10.5) 12/29/24 15:15 Total Bilirubin 0.7 mg/dL (0.15-1.2) 12/29/24 15:15 AST 7 U/L (0-32) 12/29/24 15:15 ALT < 5 U/L (0-33) 12/29/24 15:15 Alkaline Phosphatase 96 U/L (35-105) 12/29/24 15:15 Troponin T Baseline 20 ng/L (0-10) H 12/29/24 15:15 Troponin T 120 Minute 20.54 ng/L (0-10) H 12/29/24 17:19 Delta Troponin T 0.54 ABS# (0-10) 12/29/24 17:19 Total Protein 6.9 g/dL (6.6-8.7) 12/29/24 15:15 Albumin 3.9 g/dL (3.5-5.2) 12/29/24 15:15 Globulin 3.0 g/dL (1.3-4.6) 12/29/24 15:15 Lipase 13 U/L (13-60) 12/29/24 15:15 All radiology interpretation(s) finalized by discharge EKG Data EKG 1: I personally reviewed and interpreted this EKG as follows: EKG interpretation date: 12/29/24 EKG interpretation time: 14:49 Interpretation: afib hr [address] elevation qrs 94 qtc 425 EKG 2: I personally reviewed and interpreted this EKG as follows: EKG interpretation date: 12/29/24 EKG interpretation time: 17:46 Interpretation: afib hr [address] elevation qrs 92 qtc 382 Discharge Plan Discharge Patient Disposition: Home Clinical Impression: Chest pain Condition: Stable Prescriptions: No Action montelukast 10 mg tablet 10 mg PO DAILY olmesartan 20 mg tablet 20 mg PO DAILY pantoprazole 40 mg tablet,delayed release (DR/EC) 40 mg PO DAILY lovastatin 40 mg tablet 40 mg PO DAILY lamotrigine 100 mg tablet 200 mg PO DAILY tramadol 100 mg tablet 50 mg PO Q6H PRN (Reason: Sleep) albuterol sulfate [ProAir HFA] 90 mcg/actuation HFA aerosol inhaler 2 puff inhalation Q6H PRN (Reason: shortness of breath or wheezing) Qty: 8.5 0RF albuterol sulfate 2.5 mg /3 mL (0.083 %) solution for nebulization 2.5 mg inhalation Q6H PRN (Reason: shortness of breath or wheezing) Qty: 75 0RF galantamine 8 mg tablet 8 mg PO BID 30 Days Qty: 60 3RF Rx Instructions: administer with AM and PM meals mecobalamin (vitamin B12) 1,000 mcg tablet,disintegrating 1,000 mcg sublingual DAILY Rx Instructions: place tablet under tongue and allow to dissolve for at least30 secs before swallowing ondansetron 4 mg tablet,disintegrating 4 mg PO Q8H loperamide [Anti-Diarrheal (loperamide)] 2 mg capsule 2 mg PO Q4H PRN (Reason: Diarrhea) Rx Instructions: administer after each loose stool until symptoms controlled; do not exceed 8 mg per 24 hrs carbidopa-levodopa 25-100 mg tablet 1 tab PO TID hydrocodone-acetaminophen 5-325 mg tablet 1 tab PO Q8H PRN (Reason: Pain) nitroglycerin 0.4 mg tablet, sublingual 0.4 mg sublingual Q5M PRN (Reason: chest pain) 30 Days Qty: 30 3RF Rx Instructions: until response; do not exceed 3 doses per episode isosorbide mononitrate 30 mg tablet extended release 24 hr 30 mg PO DAILY Qty: 30 3RF docusate sodium 100 mg capsule 100 mg PO BID fluticasone propionate [Allergy Relief (fluticasone)] 50 mcg/actuation spray,suspension 1 spray intranasal DAILY Rx Instructions: administer into each nostril sennosides [senna] 8.6 mg tablet 8.6 mg PO DAILY polyethylene glycol 3350 17 gram/dose powder 4 g PO DAILY PRN dextromethorphan-guaifenesin 10-100 mg/5 mL liquid 10 ml PO Q4H PRN clotrimazole-betamethasone 1-0.05 % cream 1 applic topical BID diphenhydramine HCl 25 mg tablet 25 mg PO TID PRN magnesium hydroxide [Milk of Magnesia] 400 mg/5 mL suspension 5 ml PO DAILY PRN aripiprazole 2 mg tablet 2 mg PO potassium chloride [Klor-Con 10] 10 mEq tablet extended release 10 meq PO DAILY metoprolol tartrate 25 mg tablet 12.5 mg PO BID Qty: 30 3RF Rx Instructions: Hold if heart rate less than 60 or blood pressure less than 100/60 (DME) DME: Walker Unit See Rx Instructions .Route Qty: 1 0RF Rx Instructions: Antonio Wheeled [place] 8 Eileeners citalopram 40 mg tablet 40 mg PO DAILY Qty: 60 5RF quetiapine [Seroquel] 25 mg tablet 25 mg PO BID Qty: 60 5RF Eliquis 5 mg tablet 2.5 mg PO BID Qty: 60 3RF lorazepam [Ativan] 0.5 mg tablet 0.5 mg PO DAILY PRN (Reason: anxiety) Qty: 1 0RF Rx Instructions: Take 1 hour prior to procedure. furosemide [Lasix] 20 mg tablet 20 mg PO DAILY PRN (Reason: edema) Qty: 30 3RF Discharge Orders: Discharge ED (Routine); Ordered 12/29/24 Ordered By: Wendy Palacio Referrals: Elias Kruger MD [Primary Care Provider, Family Practice] - 4-7 days Discharge Diet: Advance as tolerated Discharge Activity: Resume usual activity Patient Instructions: Chest Pain (ED) Print Language: Albanian Coding Level of Care Code ED State Epidemiologist for Tahira Zamora
--- NOTE | 2024-12-29 19:10 | PC.NURSE ---
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 bedside commode brought into room and patient assisted to it. pt able to urinate with no difficulties. pt helped back into bed and placed back on qa automation architect with no difficulties. pt in no obvious distress. pt Aox4 at this time.
[2024-12-29 20:40] VITALS: BP 138/75; PULSE 67; RESP 19; O2SAT 94
== END 2024-12-29 21:11 | disposition home or self-care (01) ==
PROVIDERS: Emergency Provider Emergency Medicine; PCP Family Medicine
DX: R07.9 Chest pain, unspecified (principal); Z79.01 Long term (current) use of anticoagulants; Z87.891 Personal history of nicotine dependence; E78.5 Hyperlipidemia, unspecified; I10 Essential (primary) hypertension
CPT/HCPCS: 36415; 71045; 71275; 80053; 83690; 84484; 85025; 85610; 93005; 99285

== ENCOUNTER → 2025-01-02 07:54 | Outpatient (BNVA) | payer MEDICARE, MEDICAID, SELFPAY | PROVIDERS: PCP Family Medicine; Visit Provider Nurse Practitioner Family | DX: I25.10 Atherosclerotic heart disease of native coronary artery without angina pectoris (principal); Z09 Encounter for follow-up examination after completed treatment for conditions other than malignant neoplasm; I51.89 Other ill-defined heart diseases; E78.2 Mixed hyperlipidemia; I10 Essential (primary) hypertension; I48.91 Unspecified atrial fibrillation; Z79.01 Long term (current) use of anticoagulants; Z87.891 Personal history of nicotine dependence; R07.9 Chest pain, unspecified | CPT/HCPCS: 99214 ==

== ENCOUNTER → 2025-01-07 09:16 | Outpatient (BNVA) | payer MEDICARE, MEDICAID, SELFPAY | PROVIDERS: PCP Family Medicine; Visit Provider Anesthesiology Pain Medicine | DX: M47.816 Spondylosis without myelopathy or radiculopathy, lumbar region (principal); M54.9 Dorsalgia, unspecified | CPT/HCPCS: 64635; 64636; J1100; J9999 ==

== ENCOUNTER 2025-01-09 07:28 | Outpatient (CLI) | payer MEDICARE, MEDICAID, SELFPAY ==
--- NOTE | 2025-01-09 | ECG_ITS ---
[facility]25[facility]09 Pat Name: Nisha Galindo Department: Room: Gender: Female Market Specialist: : 1945 Requested By: Dominga Bruce Order Number: [id number] Hunt MD: Brock Blair M.D. Interpretive Statements LEXISCAN SESTAMIBI STRESS TEST Procedure: At the baseline, the blood pressure was 123/63 mmHg with a heart rate of 49 bpm. The electrocardiogram showed sinus bradycardia, normal axis with normal ST and T's. The Lexiscan was infused over a period of 20 seconds. A total of 0.4 mg of Lexiscan was infused. The stress phase was continued for a total of 5 minutes. Heart rate was at the end of stress phase was 58 bpm and a blood pressure of 101/57 mmHg. The EKG at the peak infusion revealed normal sinus rhythm with no significant ST-T wave changes. Sestamibi was injected 20 seconds after the Lexiscan infusion. Blood pressure at the end of recovery phase was 122/57 mmHg with a heart rate of 59 bpm. Conclusion: 1. Normal EKG response to Lexiscan infusion 2. No Lexiscan induced chest pain or cardiac arrhythmia. 3. Normal blood pressure and heart rate response. 4. Sestamibi/sestamibi perfusion scan pending; see separate report. Electronically Signed On 01-19-2025 12:04:57 CDT by Brock Blair M.D. [email or web address]
[2025-01-09 07:38] VITALS: BMI 38.9
--- NOTE | 2025-01-09 07:42 | NMCV_ITS ---
NM roxi perf SPECT r/s* [id number] Nisha Galindo Age: 79 Gender: F : 1945 Exam Date: 01/09/2025 09:18 Ordering Phys: Dominga Bruce NP Technologist: LG Sanchez Exam Location: [facility] Indications: cp STRESS TEST Please [facility] IMAGE PROTOCOL Rest/Stress 1 Lexiscan Day Radiopharmaceutical Dose (mCi) Administration Site Administered by Rest: Tc-99m 10.3 IV Shannon Karimi, SENIOR SALES ADMINISTRATOR Sestamibi Stress:Tc-99m 32.2 IV Shannon Apontegle, SENIOR SALES ADMINISTRATOR Sestamibi Rest: 09-Jan-2025 60 Discovery 630 Stress: 09-Jan-2025 30 Discovery 630 0.4mg Lexiscan. Images obtained in supine and prone position. SPECT RESULTS Technical Quality: Good Raw Data Analysis: Normal Image Corrections: No attenuation or motion correction applied Summed Stress Score: 1 Summed Rest Score: 2 Summed Difference Score: 0 PERFUSION FINDINGS There is a small sized area of fixed perfusion defect seen in the inferolateral wall. 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 No evidence of ischemia. FUNCTIONAL RESULTS (calculated via Gated SPECT) Stress Image LV EF (%): 71 Stress EDV (mL):108 TID: 1.22 Stress ESV (mL):31 FUNCTIONAL FINDINGS: There is normal left ventricular systolic function. IMPRESSIONS 1. 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 No evidence of ischemia. 2. LV systolic function is normal. 3. TID ratio is elevated. Brock Blair MD (Electronically Signed) Final Date: 09 January 2025 11:24 S
--- NOTE | 2025-01-09 07:45 | USCV_ITS ---
Nisha Galindo Age: 79 Gender: F : 1945 Exam Date: 01/09/2025 08:36 Ordering Phys: Dominga Bruce NP Technologist: Harvinder Rodriguez Exam Location: [facility] [place] Indication: sob BP: 115 / 54 HR: 52 Rhythm: Sinus Technical Quality: Adequate MEASUREMENTS (Male / Female) Normal Values 2D ECHO LV Diastolic Diameter PLAX 4.8 cm 4.2 - 5.9 / 3.9 - 5.3 cm IVS Diastolic Thickness 1.1 cm 0.6 - 1.0 / 0.6 - 0.9 cm IVS Systolic Thickness 1.4 cm LVPW Diastolic Thickness 1.6 cm 0.6 - 1.0 / 0.6 - 0.9 cm LVPW Systolic Thickness 2.1 cm LVOT Diameter 2.1 cm LV Ejection Fraction 2D Teich 64.3 % LV Ejection Fraction MOD 4C 73.7 % LV Ejection Fraction MOD 2C 72.4 % LV Ejection Fraction 2C AL 73.1 % LA Diameter 3.4 cm RA Systolic Volume 4C AL 45.0 ml RA Systolic Volume 4C MOD 43.5 ml LA Sys Volume AL 71.5 cm cubed LA Sys Volume Index AL 33.2 cm cubed/m squared Aorta at Sinotubular Diameter 2.4 cm IVC Diameter 1.4 cm M-MODE LA Ao Ratio MM 1.6 AV Cusp Separation MM 1.5 cm DOPPLER AV Peak Velocity 135.7 cm/s LVOT Peak Velocity 76.0 cm/s AV Area Cont Eq vti 2.0 cm squared AV Area Cont Eq pk 1.9 cm squared MV Peak Velocity 87.0 cm/s MV Area PHT 2.9 cm squared Mitral E to A Ratio 1.3 TV Peak Velocity 162.5 cm/s TR Peak Velocity 193.0 cm/s TR Peak Gradient 14.9 mmHg TR Mean Velocity 147.0 cm/s TR Mean Gradient 9.3 mmHg TR Velocity Time Integral 60.0 cm PV Peak Velocity 91.0 cm/s RV Ejection Time 0.3 s FINDINGS Left Ventricle Normal left ventricular size and systolic function, EF74 %. . No gross wall motion abnormalities Right Ventricle The right ventricle is normal in size and function. Right Atrium The right atrium is normal in size. Left Atrium Mildly increased left atrial size. Mitral Valve Thickened mitral valve. Mild mitral annular calcification. Aortic Valve No gross morphologic abnormalities Tricuspid Valve Trace to mild tricuspid valve regurgitation. Pulmonic Valve No gross abnormalities noted Pericardium Normal pericardium without effusion. Aorta Normal ascending aorta dimension. IVC Normal inferior vena cava. CONCLUSIONS Normal left ventricular size and systolic function, EF74 %. . No gross wall motion abnormalities. Thickened mitral valve. Mild mitral annular calcification. Mildly increased left atrial size. Thickened mitral valve. Mild mitral annular calcification. Trace to mild tricuspid valve regurgitation. Estimated pulmonary artery peak systolic pressure possibly within normal limits compared to the study from 05/15/2024, there may be a significant change Dr Char Mendez MD FAC (Electronically Signed) Final Date: 10 January 2025 17:01 S
[2025-01-09 10:07] VITALS: BP 102/63; PULSE 51
== END 2025-01-09 07:29 | disposition home or self-care (01) ==
LOC: RAD 07:29
PROVIDERS: PCP Family Medicine; Visit Provider Nurse Practitioner Family
DX: R07.9 Chest pain, unspecified (principal); I34.81 Nonrheumatic mitral (valve) annulus calcification; I07.1 Rheumatic tricuspid insufficiency; R93.1 Abnormal findings on diagnostic imaging of heart and coronary circulation
CPT/HCPCS: 36415; 78452; 93017; 93306; 96374; A9500; J2785

== ENCOUNTER → 2025-02-02 09:03 | Outpatient (BNVA) | payer MEDICARE, MEDICAID, SELFPAY | PROVIDERS: PCP Family Medicine; Visit Provider Anesthesiology Pain Medicine | DX: M54.9 Dorsalgia, unspecified (principal); M54.2 Cervicalgia; Z87.891 Personal history of nicotine dependence | CPT/HCPCS: 99214 ==

== ENCOUNTER → 2025-02-16 11:39 | Outpatient (BNVA) | payer MEDICARE, MEDICAID, SELFPAY | PROVIDERS: PCP Family Medicine; Visit Provider Specialist | DX: G20.A1 Parkinson's disease without dyskinesia, without mention of fluctuations (principal) | CPT/HCPCS: 99214 ==

== ENCOUNTER 2025-04-16 14:11 | Outpatient (CLI) | payer MEDICARE, MEDICAID, SELFPAY | END 2025-04-16 14:12 | disposition home or self-care (01) | LOC: SLEEP 14:12 | PROVIDERS: PCP Family Medicine; Referring Provider Nurse Practitioner Family; Visit Provider Internal Medicine Pulmonary Disease | DX: G47.33 Obstructive sleep apnea (adult) (pediatric) (principal) | CPT/HCPCS: G0399 ==

== ENCOUNTER → 2025-04-28 09:41 | Outpatient (BNVA) | payer MEDICARE, MEDICAID, SELFPAY | PROVIDERS: PCP Family Medicine; Visit Provider Specialist | DX: G20.A1 Parkinson's disease without dyskinesia, without mention of fluctuations (principal) | CPT/HCPCS: 99213 ==

== ENCOUNTER → 2025-05-12 11:15 | Outpatient (BNVA) | payer MEDICARE, MEDICAID, SELFPAY | PROVIDERS: PCP Family Medicine; Visit Provider Podiatrist Foot & Ankle Surgery | DX: M79.672 Pain in left foot (principal); B35.1 Tinea unguium; E11.9 Type 2 diabetes mellitus without complications; M20.41 Other hammer toe(s) (acquired), right foot; M20.42 Other hammer toe(s) (acquired), left foot; G62.9 Polyneuropathy, unspecified; I73.9 Peripheral vascular disease, unspecified; L60.0 Ingrowing nail; L84 Corns and callosities | CPT/HCPCS: 73630; 99213 ==

== ENCOUNTER → 2025-06-10 12:08 | Outpatient (BNVA) | payer MEDICARE, MEDICAID, SELFPAY | PROVIDERS: PCP Family Medicine; Visit Provider Internal Medicine Cardiovascular Disease | DX: I48.0 Paroxysmal atrial fibrillation (principal); Z79.01 Long term (current) use of anticoagulants; M79.89 Other specified soft tissue disorders; I25.10 Atherosclerotic heart disease of native coronary artery without angina pectoris; I10 Essential (primary) hypertension; E78.5 Hyperlipidemia, unspecified; Z87.891 Personal history of nicotine dependence; R06.02 Shortness of breath | CPT/HCPCS: 36415; 80048; 83880; 99214 ==

== ENCOUNTER 2025-06-17 23:50 | Emergency (ER) | payer MEDICARE, MEDICAID, SELFPAY ==
[2025-06-17 23:54] VITALS: BP 120/69; PULSE 74; RESP 18; TEMP 36.6; O2SAT 95; BMI 42.8
--- OUTSIDE RECORDS SUMMARY | 2025-06-17 23:58 | XMS_ITS | Encounter Summary ---
Author Organization [facility] [employer], [facility] Address [address] [place] [address] Phone Care Team Providers Care Uniform Maker Name Role Phone Elias Kruger MD Primary Care Provider [phone] Encounter Details Date Type Department Care Team (Late st Contact Info) Description 06/12/2025 Orders Only [facility], [facility] [address] [place] [address] [place], [place] [address] [place] [address] Social History Tobacco Use Types Packs/Day Years Used Date Smoking Tobacco: Former Cigarettes Passive Smoke Exposure: Past Smokeless Tobacco: Never Alcohol Use Standard Drinks/Week Comments Never 0 (1 standard drink = 0.6 oz pur e alcohol) Comments Unknown Sex and Gender Information Value Date Recorded Sex Assigned at Not on file Legal Sex Female 12:38 PM EDT Gender Identity Not on file Sexual Orientation Not on file documented as of this encounter Plan of Treatment Upcoming Encounters Date Type Department Care Team (Late st Contact Info) Description 07/09/2025 10:00 AM PIANO MECHANIC Office Visit [facility], [facility] [address] [place] [address] Lemuel Garcia NP [address] [place] [address] documented as of this encounter Procedures Procedure Name Priority Date/Time Associated Diagnosis Comments BASIC METABOLIC PANEL (BMP) (EXTERNAL LAB ENTRY) Routine 06/10/2025 documented in this encounter Results * Basic Metabolic Panel (BMP) (06/10/2025) Sodium 139 mEq/L Potassium 5.2 mEq/L Chloride 100 Carbon Dioxide 29 mmol/L Calcium 9.2 mg/dL BUN 32 mg/dL Creatinine 1.8 mg/dL Glucose 121 mg/dL eGFR Non-Afr Bhutanese 28 Anion Gap 15.2 06/10/2025 Narrative Miranda Holt MA - 06/10/[address] [address] [facility] Washington Vogt MD LAB BLOOD ORDERABLES Final Result documented in this encounter Visit Diagnoses Not on filedocumented in this encounter Care Teams Uniform Maker Relationship Specialty Start Date End Date Elias Kruger MD [address] [place] [address] PCP - General Family Medicine 02/18/25 documented as of this encounter
--- OUTSIDE RECORDS SUMMARY | 2025-06-17 23:58 | XMS_ITS | Clinical Summary ---
Author Organization [facility] Address [address] [place] [address] Care Team Providers Care Low Pressure Boiler Operator Name Role Phone Elias Kruger MD Primary Care Provider [phone] Allergies Active Allergy Reactions Criticality Noted Date Comments Duloxetine Medium 03/25/2025 Excessive vomiting in Sulfa Antibiotics 03/25/2025 Sulfamethoxazole-Trimethopr im 03/25/2025 Medications triamcinolone (KENALOG) 0.1 % paste Apply topically in the morning and at noon and in the evening. 9 Active traMADol (ULTRAM) 50 MG tablet Take 50 mg by mouth if needed 5 Active Sennosides 15 MG tablet Take 30 mg by mouth 1 (one) time each day 4 Active QUEtiapine (SEROquel) 100 MG tablet Take 100 mg by mouth every night 5 Active potassium chloride 10 MEQ CR tablet Take 10 mEq by mouth 1 (one) time each day 5 Active phenol 1.4 % liquid 1 spray 5 Active Zofran 4 MG tablet Take 4 mg by mouth every 8 (eight) hours if needed for vomiting or nausea 3 Active olmesartan (BENICAR) 20 MG tablet Take 1 tablet by mouth 1 (one) time each day 3 Active nitroglycerin (NITROSTAT) 0.[address] 0.4 mg under the tongue every 5 (five) minutes if needed for chest pain 5 Active montelukast (SINGULAIR) 10 MG tablet Take 1 tablet by mouth every night 3 Active metoprolol tartrate 25 MG tablet Take 25 mg by mouth in the morning and 25 mg in the evening. 4 Active lovastatin (MEVACOR) 40 MG tablet Take 1 tablet by mouth every night 3 Active loratadine (Claritin) 10 MG tablet Take 10 mg by mouth 1 (one) time each day 4 Active loperamide (IMODIUM A-D) 2 MG tablet Take 2 mg by mouth every 6 (six) hours if needed 4 Active lamoTRIgine (LaMICtal) 200 MG tablet Take 1 tablet by mouth 1 (one) time each day 3 Active isosorbide mononitrate (IMDUR) 30 MG 24 hr tablet Take 30 mg by mouth 1 (one) time each day 5 Active ibuprofen (ADVIL,MOTRIN) 800 MG tablet Take 800 mg by mouth every 6 hours as needed 9 Active HYDROcodone-acet aminophen (NORCO) 5-325 MG per tablet Take 1 tablet by mouth in the morning and 1 tablet at noon and 1 tablet in the evening. 4 Active galantamine (RAZADYNE) 8 MG tablet Take 8 mg by mouth in the morning and 8 mg in the evening. 3 Active Lasix 20 MG tablet Take 20 mg by mouth 1 (one) time each day 4 Active fluticasone (Flonase Allergy Relief) 50 MCG/ACT nasal spray Administer 100 mcg into each nostril 1 (one) time each day 4 Active docusate sodium (Colace) 100 MG capsule Take 100 mg by mouth in the morning and 100 mg in the evening. 3 Active diphenhydrAMINE (Banophen) 25 MG capsule Take 25 mg by mouth in the morning and 25 mg in the evening. 5 Active dicyclomine (BENTYL) 10 MG capsule Take 10 mg by mouth 4 (four) times a day (before meals and nightly) 5 Active clotrimazole-bet amethasone (LOTRISONE) cream Apply 1 application. topically in the morning and 1 application. in the evening. 5 Active citalopram (CeleXA) 40 MG tablet Take 40 mg by mouth 1 (one) time each day 4 Active chlorhexidine (PERIDEX) 0.12 % solution 15 mL in the morning and 15 mL in the evening. 9 Active carbidopa-levodo pa (SINEMET) 25-100 MG per tablet Take 1 tablet by mouth 5 Active calcium carbonate (Tums) 500 MG chewable tablet Chew 2 tablets 1 (one) time each day 5 Active BENZONATATE PO Take 200 mg by mouth in the morning and 200 mg at noon and 200 mg in the evening. 5 Active Abilify 2 MG tablet Take 2 mg by mouth 1 (one) time each day 5 Active Eliquis 2.5 MG tablet Take 2.5 mg by mouth in the morning and 2.5 mg in the evening. 5 Active pantoprazole (PROTONIX) 40 MG EC tablet 5 Active cyanocobalamin (VITAMIN B-12) 1000 MCG tablet Take 100 mcg by mouth 1 (one) time each day Active albuterol HFA (PROVENTIL HFA;VENTOLIN HFA) 108 (90 Base) MCG/ACT inhaler Inhale 2 puffs every 6 (six) hours if needed for wheezing Active levothyroxine (SYNTHROID, LEVOTHROID) 50 MCG tablet 5 Active acetaminophen (TYLENOL) 500 MG tablet Take by mouth every 6 (six) hours if needed for mild pain Active Active Problems No known active problems Encounters Date Type Department Care Team Description 06/12/2025 Documentation Only [facility] [address] [place] [address] Miarnda Holt MA 06/12/2025 Results Follow-Up [facility], [facility] [address] [place] [address] Lidia Hernandez MA 06/12/2025 Orders Only [facility], [facility] [address] [place] [address] Miranda Holt MA 05/05/2025 Documentation Only [facility], [facility] [address] [place] [address] Washington Vogt MD 04/17/2025 Documentation Only [facility], [facility] [address] [place] [phone] Lidia Hernandez MA 04/17/2025 Results [facility], [facility] [address] [place] [address] Lidia Hernandez MA 04/17/2025 Documentation Only [facility], [facility] [address] [place] [address] Lidia Hernandez MA 04/17/2025 Documentation Only [facility], [facility] [address] [place] [address] Lidia Hernandez MA 04/14/2025 1:00 PM CDT Office Visit [facility], [facility] [address] [place] [phone] Washington Vogt MD Stage 3 chronic kidney disease, not otherwise specified (HCC) (Primary Dx); Stage 3b chronic kidney disease (HCC); Unspecified deficiency anemia 04/14/2025 Documentation Only [facility], [facility] [address] [place] [address] Lillie Pacheco 03/25/2025 Documentation Only [facility], [facility] [address] [place] [address] Lidia Hernandez MA 03/25/2025 Telephone [facility], [facility] [address] [place] [address] Lidia Hernandez MA from Last 3 Months Immunizations Immunization Administration Dates Next Due Influenza Split High Dose Pr eservative Free IM 03/31/2019 Influenza, Unspecified 03/27/2023,2016,03/29/2015,03/04,02/23/2015,03/25/2013,04/11/2012 ,04/25/2011,04/18/2010 Moderna SARS-COV-2 10/05/2020,09/07/2020, 021 Pneumococcal Conjugate 02/14/2023 Pneumococcal Conjugate 13-Valent 03/29/2015,02/23 Pneumococcal Polysaccharide 07/03/2011 TD Preservative Free 10/31/2011,06/05/2000,06/26 Zoster 10/05/2011 Family History Medical History Relation Comments Diabetes Father Heart disease Father Cancer Mother Heart disease Mother Relation Status Comments Father Mother Social History Tobacco Use Types Packs/Day Years [...] Sign Reading Time Taken Comments Blood Pressure 116/72 04/14/2025 1:05 PM CDT Pulse 58 04/14/2025 1:05 PM CDT Temperature - - Respiratory Rate - - Oxygen Saturation 98% 04/14/2025 1:05 PM CDT Inhaled Oxygen Concentration - - Weight 106 kg (233 lb 3.2 oz) 04/14/2025 1:05 PM CDT Height 160 cm (5' 3 ) 04/14/2025 1:05 PM CDT Body Mass Index 41.31 04/14/2025 1:05 PM CDT Plan of Treatment Upcoming Encounters Date Type Department Care Team (Late st Contact Info) Description 07/09/2025 10:00 AM BLACKTOP PAVER OPERATOR Office Visit [facility] [address] [place], [place] [address] Lemuel Garcia NP [address] [facility] [address] [place] [address] Health Maintenance Due Date Last Done Comments Influenza Vaccine (#1) 2025 , 03/31/2019, 03/10/2017, Additional history exists Diabetes: Hemoglobin A1C 03/19/2025 Diabetes: Ophthalmology Exam 03/19/2025 Diabetes: Pedal Pulse Checked 03/19/2025 Diabetes: Sensory Foot Exam 03/19/2025 Diabetes: Visual Foot Exam 03/19/2025 Pneumococcal Vaccine: 50+ Years Completed 02/14/2023, 03/29/2015, 03/04/2015, Additional history exists Hepatitis B Vaccine Aged Out No longe r eligible based on patient's age to complete this topic Procedures Procedure Name Priority Date/Time Associated Diagnosis Comments BASIC METABOLIC PANEL (BMP) (EXTERNAL LAB ENTRY) Routine 06/10/2025 PTH, INTACT Routine 04/17/2025 7:54 AM CDT Stage 3b chronic kidney disease (HCC) CBC Routine 04/17/2025 7:54 AM CDT Stage 3b chronic kidney disease (HCC) RENAL FUNCTION PANEL Routine 04/17/2025 7:54 AM CDT Stage 3b chronic kidney disease (HCC) POCT URINALYSIS, AUTO, W/O SCOPE Routine 04/14/2025 1:10 PM CDT Stage 3 chronic kidney disease, not otherwise specified (HCC) from Last 3 Months Results * Basic Metabolic Panel (BMP) (06/10/2025) Sodium 139 mEq/L Potassium 5.2 mEq/L Chloride 100 Carbon Dioxide 29 mmol/L Calcium 9.2 mg/dL BUN 32 mg/dL Creatinine 1.8 mg/dL Glucose 121 mg/dL eGFR Non-Afr Tajik 28 Anion Gap 15.2 06/10/2025 Narrative Miranda Holt MA - 06/10/[address] [address] [facility] Washington Vogt MD LAB BLOOD ORDERABLES Final Result * CBC without diff (04/17/2025 7:54 AM CDT) WBC 5.6 K/uL PRINT/EXTE RNAL (NON-INTERFACE D LABS) Red Blood Cell Count 3.26 PRINT/EXTERNAL (NON-INTERFACE D LABS) Hemoglobin 9.4 g/dL PRINT/EXT ERNAL (NON-INTERFACE D LABS) Hematocrit 30.9 % PRINT/EXT ERNAL (NON-INTERFACE D LABS) MCV 94.8 PRINT/EXTE RNAL (NON-INTERFACE D LABS) MCH 28.8 PRINT/EXTE RNAL (NON-INTERFACE D LABS) MCHC 30.0 PRINT/EXTE RNAL (NON-INTERFACE D LABS) RDW 15.7 PRINT/EXTE RNAL (NON-INTERFACE D LABS) Platelet Count 210.0 PRINT /EXTERNAL (NON-INTERFACE D LABS) MPV 10.8 PRINT/EXTE RNAL (NON-INTERFACE D LABS) Blood Venous blood / Unknown 04/17/2025 7:54 AM CDT Narrative PRINT/EXTERNAL (NON-INTERFACED LABS) - 04/17/2025 10:47 AM CDT [address] [id number] CLIA # [id number] Washington Vogt MD LAB BLOOD ORDERABLES Final Result Performing Organization Address [facility] de Phone Number PRINT/EXTERNAL (NON-INTERFACED LABS) * PTH, intact (04/17/2025 7:54 AM CDT) Pathologist [facility] Parathyroid Hormone, Intact 105.2 pg/mL PRINT/SERVICE ATTENDANT [place] AL (NON-INTERFACE D LABS) Blood Venous blood / Unknown 04/17/2025 7:54 AM CDT Narrative PRINT/EXTERNAL (NON-INTERFACED LABS) - 04/17/2025 10:47 AM CDT [address] [address] CLIA # [id number] Washington Vogt MD LAB BLOOD ORDERABLES Final Result Performing Organization Address [facility] de Phone Number PRINT/EXTERNAL (NON-INTERFACED LABS) * Renal function panel (04/17/2025 7:54 AM CDT) Glucose 123.0 mg/dL PRINT/EXTE RNAL (NON-INTERFACE D LABS) BUN 20.0 mg/dL PRINT/EXTE RNAL (NON-INTERFACE D LABS) Creatinine 1.4 mg/dL PRINT/EXT ERNAL (NON-INTERFACE D LABS) Sodium 139 mEq/L PRINT/EXTE RNAL (NON-INTERFACE D LABS) Potassium 4.1 mEq/L PRINT/EXTE RNAL (NON-INTERFACE D LABS) Chloride 103.0 PRINT/EXTE RNAL (NON-INTERFACE D LABS) Carbon Dioxide 27.0 mmol/L PRINT /EXTERNAL (NON-INTERFACE D LABS) Calcium 8.6 mg/dL PRINT/EXTE RNAL (NON-INTERFACE D LABS) Phosphorus, Serum 4.0 mg/dL PRINT/EXTERNAL (NON-INTERFACE D LABS) Albumin (Blood) 4.4 g/dL PRIN T/EXTERNAL (NON-INTERFACE D LABS) eGFR Non-Afr Tajik 36.4 PRINT/EXTERNAL (NON-INTERFACE D LABS) eGFR 44.0 PRINT/EXTERNAL (NON-INTERFACE D LABS) Osmolality Serum 273.0 mosm/kg PRINT/EXTERNAL (NON-INTERFACE D LABS) Blood Venous blood / Unknown 04/17/2025 7:54 AM CDT Narrative PRINT/EXTERNAL (NON-INTERFACED LABS) - 04/17/2025 10:47 AM CDT [address] [address] CLIA # [id number] us Washington Vogt MD LAB BLOOD ORDERABLES Final Result PRINT/EXTERNAL (NON-INTERFACED LABS) * (ABNORMAL) POCT urinalysis auto, w/o scope (04/14/2025 1:10 PM CDT) Color, UA Yellow Clarity, UA Cloudy Glucose, UA Negative mg/dL Bilirubin, UA Negative Ketones, UA Trace Urine Specific Vienna 1.020 Blood, UA Negative Trell/ul pH, UA 5.5 Protein, UA Negative mg/dL Urobilinogen, UA 0.2 Leukocytes, UA Small Nitrite, UA Negative POC SSA Negative Urine 04/14/2025 1:1 0 PM CDT Washington Vogt MD POINT OF CARE TEST OR DERABLES Final Result from Last 3 Months Insurance Medicare Medicaid [place] ([id number]) Care Teams Low Pressure Boiler Operator Relationship Specialty Start Date End Date Elias Kruger MD [address] [place] [address] PCP - General Family Medicine 02/18/25
--- OUTSIDE RECORDS SUMMARY | 2025-06-17 23:58 | XMS_ITS | Encounter Summary ---
Author Organization [facility] [facility] Address [address] [place] [address] Phone Care Team Providers Care Oracle Financials Developer Name Role Phone Elias Kruger MD Primary Care Provider [phone] Encounter Details Date Type Department Care Team (Late st Contact Info) Description 06/12/2025 Documentation Only [facility], [facility] [address] [place] [address] [place], [place] [address] [place] [address] Social History Tobacco Use Types [...] st Contact Info) Description 07/09/2025 10:00 AM CONTRACTING ENGINEER Office Visit [facility] [address] [place] [address] Lemuel Garcia NP [address] [place] [address] documented as of this encounter Visit Diagnoses Not on filedocumented in this encounter Care Teams [employer] Financials Developer Relationship Specialty Start Date End Date Elias Kruger MD [address] [place] [address] PCP - General Family Medicine 02/18/25 documented as of this encounter
--- OUTSIDE RECORDS SUMMARY | 2025-06-17 23:58 | XMS_ITS | Clinical Summary ---
Author Organization [facility] Address [address] [facility] Attn: Epic [place] [address] Care Team Providers Care Maintenance And Repair Worker Name Role Phone Unavailable Primary Care Provider Unavailabl e Allergies No known active allergies Active Problems Problem Noted Date Diagnosed Date Lesion of mouth 11/28/2008 Encounters Date Type Department Care Team Description 04/15/2025 Transcribe Orders [facility] Pre-Registration [place] CALL TO MAKE APPOINTMENT ONLY [address] [place] [address] Washington Vogt MD Stage 3b chronic kidney disease (CMS/HCC) (Primary Dx) from Last 3 Months Social History Tobacco Use Types Packs/Day Years Used Date Smoking Tobacco: Never Alcohol Use Standard Drinks/Week Comments No 0 (1 standard drink = 0.6 oz pur e alcohol) Comments Unknown Sex and Gender Information Value Date Recorded Sex Assigned at Not on file Legal Sex Female 3:19 PM ADMINISTRATIVE MEDICAL DIRECTOR Gender Identity Not on file Sexual Orientation Not on file Plan of Treatment Health Maintenance Due Date Last Done Comments DTAP/TDAP/TD VACCINES (1 - Tdap) 1965 PNEUMOCOCCAL VACCINE 50+ YEARS (1 of 1 - PCV) 05/10/19 96 ZOSTER VACCINE (1 of 2) 1996 OSTEOPOROSIS SCREENING 2011 RSV VACCINE (60+ or ) (1 - 1-dose 75+ series) 2021 INFLUENZA VACCINE (#1) 2025 Insurance MEDICAID [place] [facility] DUAL COMPLETE PPO [facility] [id number]
--- OUTSIDE RECORDS SUMMARY | 2025-06-17 23:58 | XMS_ITS | Clinical Summary ---
Author Organization [facility] Address [address] [place] [address] Care Team Providers Care Taper Printed Circuit Layout Name Role Phone Unavailable Primary Care Provider [...] on file Legal Sex Female 6:44 AM ABSORPTION PLANT OPERATOR HELPER Gender Identity Not on file Sexual Orientation [...] 2021 INFLUENZA VACCINE (#1) 2025 Insurance [place]ID [place]
--- OUTSIDE RECORDS SUMMARY | 2025-06-17 23:58 | XMS_ITS | Encounter Summary ---
Author Organization [facility], [facility] Address [address] [place] [address] Phone Care Team Providers Care Range Conservationist Name Role Phone Elias Kruger MD Primary Care Provider [phone] Encounter Details Date Type Department Care Team (Late st Contact Info) Description 04/17/2025 Results Follow[facility]Up [facility], [facility] [address] [place] [address] Lidia Hernandez MA [address] [place] [address] Social History Tobacco Use Types [...] on file documented as of this encounter Progress Notes * Lidia Hernandez MA - 04/20/2025 10:13 AM CDT As ordered lab * Lidia Hernandez MA - 04/17/2025 11:51 AM CDT As ordered lab documented in this encounter Plan of Treatment Upcoming Encounters Date Type Department Care Team (Late st Contact Info) Description 07/09/2025 10:00 AM TAIL DOGGER Office Visit [facility] [address] [place] [address] Lemuel Garcia NP [address] [facility] [address] [place] [address] documented as of this encounter Visit Diagnoses Not on filedocumented in this encounter Care Teams Range Conservationist Relationship Specialty Start Date End Date Elias Kruger MD [address] [place] [address] PCP - General Family Medicine 02/18/25 documented as of this encounter
--- OUTSIDE RECORDS SUMMARY | 2025-06-17 23:58 | XMS_ITS | Encounter Summary ---
Author Organization [facility], [facility] Address [address] [place] [address] Phone Care Team Providers Care Aircraft Sales Representative Name Role Phone Elias Kruger MD Primary Care Provider [phone] Encounter Details Date Type Department Care Team (Late st Contact Info) Description 06/12/2025 Results [facility], [facility] [address] [place] [address] Lidia Hernandez MA [address] [place] [address] Social History Tobacco Use Types [...] Progress Notes * Lidia Hernandez MA - 06/12/2025 1:36 PM CST Courtesy labs; records have been scanned for review. documented in this encounter Miscellaneous Notes * Telephone Encounter - Lidia Hernandez MA - 06/12/2025 4:55 PM CST Pt. Contacted and states that heart Doubled her fluid pill due to swelling and it is PRN. States that she is having swelling and tightness in her legs. Pt. Verbalized understanding regarding her potassium and olmesartan and BMP repeat. States to let [facility]. Spoke with Majo with [facility] and order for Nursing communication faxed to [phone] as requested. Thank you * Telephone Encounter - Lidia Hernandez MA - 06/12/2025 4:54 PM CST ----- Message from [place] Vogt sent at 06/12/2025 3:12 PM HEAD PUMPER ----- Creatinine up to 1.8, and K up some. Have her hold K supplements. Reduce olmesartan to 10mg saima;y (1/2 current dose), and repeat BMP in 2 weeks. ThanksWashington ----- Message ----- From: Lidia Hernandez MA Sent: 06/12/2025 1:36 PM HEAD PUMPER To: Washington Vogt MD Courtesy labs; records have been scanned for review. ----- Message ----- From: Miranda Holt MA Sent: 06/12/2025 1:33 PM HEAD PUMPER To: [facility] Clinical Support Pool documented in this encounter Plan of Treatment Upcoming Encounters Date Type Department Care Team (Late st Contact Info) Description 07/09/2025 10:00 AM HEAD PUMPER Office Visit [facility] [address] [place] [address] Lemuel Garcia NP [address] [facility] [address] [place] [address] documented as of this encounter Visit Diagnoses Diagnosis Stage 3 chronic kidney disease, not otherwise specified (HCC)- Primary Stage 3b chronic kidney disease (HCC) Unspecified deficiency anemia documented in this encounter Care Teams Aircraft Sales Representative Relationship Specialty Start Date End Date Elias Kruger MD [address] [place] [address] PCP - General Family Medicine 02/18/25 documented as of this encounter
--- OUTSIDE RECORDS SUMMARY | 2025-06-17 23:58 | XMS_ITS | Encounter Summary ---
Author Organization [facility], [facility] Address [address] [facility] [address] [place] [address] Phone Care Team Providers Care Marketing Services Coordinator Name Role Phone Elias Kruger MD Primary Care Provider [phone] Encounter Details Date Type Department Care Team (Late st Contact Info) Description 02/19/2025 Orders Only [facility] [address] [facility] [address] [place] [address] Chronic kidney disease, not otherwise specified Social History Tobacco Use Types Packs/Day Years Used Date Smoking Tobacco: Never Assessed Comments Unknown Sex and Gender Information Value Date Recorded Sex Assigned at Not on file Legal Sex Female 12:38 PM EDT Gender Identity Not on file Sexual Orientation Not on file documented as of this encounter Plan of Treatment Upcoming Encounters Date Type Department Care Team (Late st Contact Info) Description 07/09/2025 10:00 AM HYDRAULIC PRESS TENDER Office Visit [facility] [address] [place], [place] [id number] Lemuel Garcia NP [address] [facility] [address] [place] [address] documented as of this encounter Visit Diagnoses Diagnosis Chronic kidney disease, not otherwise specified documented in this encounter Care Teams Marketing Services Coordinator Relationship Specialty Start Date End Date Elias Kruger MD [address] [place], [place] [id number] PCP - General Family Medicine 02/18/25 documented as of this encounter
[2025-06-18] VITALS (7 sets, daily range): BP systolic 102–147; BP diastolic 51–96; PULSE 50–76; RESP 14–23; TEMP 36.6; O2SAT 92–99
--- NOTE | 2025-06-18 00:14 | CTR_ITS ---
PROCEDURE INFORMATION: Exam: CT Head Without Contrast Exam date and time: 06/18/2025 1:14 AM Age: 80 years old Clinical indication: Injury or trauma; Fall; Blunt trauma (contusions or hematomas); Additional info: Fall, dizzy TECHNIQUE: Imaging protocol: Computed tomography of the head without contrast. Radiation optimization: All CT scans at this facility use at least one of these dose optimization techniques: automated exposure control; mA and/or kV adjustment per patient size (includes targeted exams where dose is matched to clinical indication); or iterative reconstruction. COMPARISON: MR head wo con* [id number] 01/16/2023 11:39 AM RADIATION DOSE METRICS: Total DLP (mGy-cm): 1326.9 FINDINGS: Brain: No acute intracranial hemorrhage. No midline shift or mass effect. No acute territorial infarct. Global age-related cerebral atrophy. Chronic, age related microangiopathy, consistent periventricular and subcortical white matter hypoattenuation. Cerebral ventricles: No ventriculomegaly. Paranasal sinuses: Visualized sinuses are unremarkable. No fluid levels. Mastoid air cells: Visualized mastoid air cells are well aerated. Bones: Unremarkable. No acute fracture. Soft tissues: Unremarkable. CT/CT head wo con* [id number] IMPRESSION: No acute intracranial hemorrhage. No midline shift or mass effect.
--- NOTE | 2025-06-18 00:14 | CTR_ITS ---
PROCEDURE INFORMATION: Exam: CT Cervical Spine Without Contrast Exam date and time: 06/18/2025 1:14 AM Age: 80 years old Clinical indication: Injury or trauma; Fall; Blunt trauma; Additional info: Fall neck pain TECHNIQUE: Imaging protocol: Computed tomography of the cervical spine without contrast. Radiation optimization: All CT scans at this facility use at least one of these dose optimization techniques: automated exposure control; mA and/or kV adjustment per patient size (includes targeted exams where dose is matched to clinical indication); or iterative reconstruction. COMPARISON: MR cervical spin wo con* [id number] 12/22/2024 11:16 AM RADIATION DOSE METRICS: Total DLP (mGy-cm): 329.6 FINDINGS: Bones: No acute cervical spine fracture or subluxation. The vertebral body heights are maintained. The craniocervical junction is intact. The atlantodental interval is within normal limits. The dens is intact. No spondylolisthesis. Multilevel degenerative changes. Multilevel cervical spondylosis and degenerative endplate changes/disc disease. Straightening of the cervical lordosis. Lungs: Lung apices are normal. Soft tissues: Unremarkable. CT/CT cervical spin wo con* [id number] IMPRESSION: 1. No acute cervical spine fracture or subluxation. 2. Multilevel degenerative changes.
--- NOTE | 2025-06-18 00:14 | XRR_ITS ---
PROCEDURE INFORMATION: Exam: XR Right Femur Exam date and time: 06/18/2025 12:14 AM Age: 80 years old Clinical indication: Injury or trauma; Fall; Blunt trauma; Thigh or upper leg; Right; Additional info: Fall R thigh pain TECHNIQUE: Imaging protocol: Radiologic exam of the right femur. Views: 2 views. COMPARISON: MR hip RT wo con* [id number] 11/13/2023 1:13 PM FINDINGS: Bones/joints: No acute fracture or dislocation. Diffuse osseous demineralization. Moderate joint space narrowing of the medial compartment. Soft tissues: Unremarkable. XR/XR femur RT min 2V* [id number] IMPRESSION: 1. No acute fracture or dislocation. 2. Moderate joint space narrowing of the medial compartment.
--- NOTE | 2025-06-18 00:16 | ECG_ITS ---
[employer] Test Date: 2025-06-17 Pat Name: Nisha Galindo Department: Room: Gender: Female Firm Administrator: : [id number] Requested By: Wilfrido Flanagan Order Number: [id number] Reading MD: CHRIS DUNN Measurements Intervals [place] Rate: 72 P: 0 [place]: 0 QRS: 60 QRSD: 96 T: 165 QT: 402 QTc: 443 Interpretive Statements SINUS RHYTHM INDETERMINATE AXIS LOW QRS VOLTAGE IN PRECORDIAL LEADS [QRS DEFLECTION < 1.0 mV IN CHEST LEADS] PATTERN CONSISTENT WITH PULMONARY DISEASE MODERATE ST DEPRESSION [0.05+ mV ST DEPRESSION] ABNORMAL QRS-T ANGLE [QRS-T AXIS DIFFERENCE > 60] Compared to ECG 12/29/2024 17:46:15 Indeterminate axis now present ST (T wave) deviation now present Incomplete right bundle-branch block no longer present T-wave abnormality no longer present Electronically Signed On 06-21-2025 23:15:42 GERIATRICS PHYSICIAN by CHRIS DUNN [email or web address]
[2025-06-18 00:23] LABS: Hematocrit 26.4 % (36-47); Hemoglobin 7.80 g/dL (11.27-16.99); Mean Corpuscular HGB Conc 29.5 g/dL (30-55); Mean Corpuscular Hemoglobin 27.7 pg (27-33); Mean Corpuscular Volume 93.6 fl (85-98); Nucleated Red Blood Cells % 0 %; Platelet Count 195 10^3/cmm (157-399); Red Blood Count 2.82 10^6/uL (3.85-5.65); White Blood Count 6.20 10^3/uL (3.29-11.43)
[2025-06-18 00:28] LABS: INR 0.93 (0.8-1.2); Prothrombin Time 13.10 SECONDS (12.1-14.9)
[2025-06-18 00:29] LABS: Partial Thromboplastin Time 27.7 SECONDS (23.9-36.7)
[2025-06-18 00:37] LABS: Troponin(5th) Baseline 23 ng/L (0-10)
[2025-06-18 00:40] LABS: Alanine Aminotransferase < 5 U/L (0-33); Albumin Level 3.6 g/dL (3.5-5.2); Alkaline Phosphatase 134 U/L (35-105); Anion Gap 14.3 (5-19); Aspartate Amino Transferase 10 U/L (0-32); Blood Urea Nitrogen 32 mg/dL (8-23); Calcium 8.4 mg/dL (8.5-10.5); Carbon Dioxide 26 mmol/L (22-29); Chloride 101 mmol/L (98-107); Globulin 2.5 g/dL (1.3-4.6); Glucose 174 mg/dL (65-115); Osmolality Calculated 295 mOsm/kg (285-295); Potassium 4.3 mmol/L (3.5-5.1); Sodium 137 mmol/L (136-145); Total Protein 6.1 g/dL (6.6-8.7)
[2025-06-18 00:44] LABS: Lactic Sepsis W/Reflex 2.2 mmol/L (0.5-2.2)
--- NOTE | 2025-06-18 01:06 | W.ED.FALL ---
HPI - Fall General: Chief Complaint: Fall Stated Complaint: Fall Time Seen by Provider: 06/17/25 23:53 History of Present Illness: This 80-year-old female presents following a near-syncopal episode with subsequent fall. The patient reports she was sitting in her chair when her nurse arrivedat approximately 10:00 PM. She stood up to speak with the nurse then turned to return to her chair when she experienced sudden onset of vertigo with everything 'spinning.' This resulted in a fall where she struck her chair and landed face down. The patient denies any prior episodes of syncope or presyncope. She experienced some vertigo during transport but reports this has since resolved. The fall resulted in facial trauma with nasal pain (now improved), significant neck pain, and right thigh pain. She denies chest pain or vomiting. Related Data Home Medications ?Medication ?Instructions ?Recorded ?Confirmed lovastatin 40 mg tablet 40 mg PO DAILY 10/14/20 05/12/25 montelukast 10 mg tablet 10 mg PO DAILY 10/14/20 05/12/25 olmesartan 20 mg tablet 20 mg PO DAILY 10/14/20 05/12/25 pantoprazole 40 mg tablet,delayed 40 mg PO DAILY 10/14/20 05/12/25 release lamotrigine 100 mg tablet 200 mg PO DAILY 07/07/21 05/12/25 mecobalamin (vitamin B12) 1,000 1,000 mcg sublingual DAILY 02/05/23 05/12/25 mcg disintegrating tablet,sublingual tramadol 100 mg tablet 50 mg PO Q6H PRN Sleep 02/05/23 05/12/25 hydrocodone 5 mg-acetaminophen 325 1 tab PO Q8H PRN Pain 02/20/24 05/12/25 mg tablet loperamide 2 mg capsule 2 mg PO Q4H PRN Diarrhea 02/20/24 05/12/25 (Anti-Diarrheal (loperamide)) ondansetron 4 mg disintegrating 4 mg PO Q8H 02/20/24 05/12/25 tablet clotrimazole-betamethasone 1 1 applic topical BID 08/07/24 05/12/25 %-0.05 % topical cream dextromethorphan-guaifenesin 10 10 ml PO Q4H PRN 02/13/25 11/18/25 mg-100 mg/5 mL oral liquid diphenhydramine HCl 25 mg tablet 25 mg PO TID PRN 08/07/24 05/12/25 docusate sodium 100 mg capsule 100 mg PO BID 08/07/24 05/12/25 fluticasone propionate 50 1 spray intranasal DAILY 08/07/24 05/12/25 mcg/actuation nasal spray,suspension (Allergy Relief (fluticasone)) magnesium hydroxide 400 mg/5 mL 5 ml PO DAILY PRN 08/07/24 05/12/25 oral suspension (Milk of Magnesia) polyethylene glycol 3350 17 4 g PO DAILY PRN 08/07/24 05/12/25 gram/dose oral powder acetaminophen 500 mg tablet 500 mg PO Q6H PRN 04/28/25 05/12/25 benzonatate 200 mg capsule 200 mg PO TID 04/28/25 05/12/25 budesonide 160 mcg-glycopyr 9 2 inh inhalation BID 04/28/25 05/12/25 mcg-formot 4.8 mcg/actuation HFA inhaler ([employer]) dicyclomine 10 mg capsule 10 mg PO QID PRN 04/28/25 05/12/25 levothyroxine 50 mcg capsule 50 mcg PO DAILY 04/28/25 05/12/25 Previous Rx's ?Medication ?Instructions ?Recorded albuterol sulfate 90 mcg/actuation 2 puff inhalation Q6H PRN 12/20/20 aerosol inhaler (ProAir HFA) shortness of breath or wheezing #8.5 grams albuterol sulfate 2.5 mg/3 mL 2.5 mg (3 mL) inhalation Q6H PRN 12/29/20 (0.083 %) solution for nebulization shortness of breath or wheezing #75 mL galantamine 8 mg tablet 8 mg PO BID 30 days #60 tabs 12/18/22 DME: [place] #1 ea 01/05/23 citalopram 40 mg tablet 40 mg PO DAILY #60 tabs 08/18/23 isosorbide mononitrate 30 mg 30 mg PO DAILY #30 tabs 08/20/23 tablet,extended release 24 hr nitroglycerin 0.4 mg sublingual 0.4 mg sublingual Q5M PRN chest 08/20/23 tablet pain 30 days #30 tabs metoprolol tartrate 25 mg tablet 12.5 mg (1/2 x 25 mg) PO BID #30 11/03/24 tabs apixaban 5 mg tablet (Eliquis) 2.5 mg (1/2 x 5 mg) PO BID #60 tabs 12/05/24 carbidopa 25 mg-levodopa 100 mg See Rx Instructions PO TID #540 02/16/25 tablet tabs quetiapine 100 mg tablet 100 mg PO .QPM 90 days #90 tabs 03/09/25 furosemide 20 mg tablet (Lasix) 40 mg (2 x 20 mg) PO DAILY PRN 06/12/25 edema #30 tabs meclizine 25 mg tablet 25 mg PO TID PRN dizziness #30 tabs 06/18/25 Allergies Allergy/AdvReac Type Severity Reaction Status Date / Time duloxetine Allergy VOMITING Verified 06/10/25 10:58 Sulfa (Sulfonamide Allergy UNKNOWN Verified 06/10/25 10:58 Antibiotics) sulfamethoxazole (From Allergy UNKNOWN Verified 06/10/25 10:58 Septra) trimethoprim (From Septra) Allergy UNKNOWN Verified 06/10/25 10:58 PFS ED PFSH: Medical History History of cystocele Morbid obesity Hemorrhagic diarrhea Rectal bleeding History of rectocele Chest pain Hyperlipemia Depression Essential tremor Sleep apnea Diabetes mellitus Diastolic dysfunction Surgical History History of rectal surgery Hx of shoulder surgery History of bladder suspension procedure Hx of cataract extraction History of knee replacement Hx of hysterectomy Hx of cholecystectomy Hx of tonsillectomy Family History Family/Other No problems noted. Father CAD (coronary artery disease), Onset Age: 70 Diabetes Mother CAD (coronary artery disease), Onset Age: 60 Grandmother Chronic kidney disease (CKD) Son Lung disease Denies family history of Clotting disorder Dementia Suicide Anesthesia complication Bleeding disorder Cancer Stroke Social History Smoking and tobacco/nicotine status: never used tobacco/nicotine Quit status (tobacco/nicotine): has quit using Year quit tobacco: 1984 Former quit date comment: 1 PPD X 15 YEARS Alcohol intake: current Alcohol intake frequency: holidays/special occasions only Substance/Drug Use: never Female Reproductive History: Spontaneous abortions: No Physical Exam Const: COMMON NORMALS: alert GENERAL APPEARANCE: cooperative; not ill appearing HENMT: COMMON NORMALS: normocephalic, atraumatic and Normal external nose present HEAD & SCALP: normocephalic and atraumatic FACE & SINUS: normal facial exam and face symmetric NOSE: Normal external nose present Eye: COMMON NORMALS: Equal, round and reactive pupils present and EOMs intact bilaterally PUPIL: Yes Equal, round and reactive pupils present Neck/C-Spine: GENERAL: Yes trachea midline Chest: CHEST: Yes Symmetrical chest wall rise Resp: COMMON NORMALS: normal respiratory effort, No retractions, No use of accessory muscles and clear to auscultation bilaterally AUSCULTATION: clear to auscultation bilaterally Cardio: COMMON NORMALS: regular rate and regular rhythm RATE: regular rate RHYTHM: regular rhythm GI: COMMON NORMALS: Normal to inspection, nondistended, normoactive bowel sounds present Extremity: COMMON NORMALS: no pedal edema Neuro: RUBENS COMA SCALE: document GCS findings [place] coma scale eye opening: Spontaneous Rubens coma scale verbal response: Orientated Rubens coma scale motor response: Obey commands [place] coma scale total score: 15 SENSORIUM/ORIENTATION: Yes alert COORDINATION/BALANCE: [id number] test normal SPEECH: speech normal SENSORY EXAM: Yes extremities (intact) MOTOR EXAM: Pronator motor function not present COORDINATION: [id number] test normal Psych: COMMON NORMALS: speech normal SPEECH: Yes normal speech Skin: COMMON NORMALS: no rashes or lesions noted GENERAL SKIN EXAM: no rashes or lesions noted Course Vital Signs: Vital signs: Vital Signs Temperature 98 F 06/18/25 00:00 Pulse Rate 50 L 06/18/25 02:55 Respiratory Rate 23 H 06/18/25 02:15 Blood Pressure 116/68 06/18/25 02:55 Pulse Oximetry 92 06/18/25 02:55 Oxygen Delivery Me thod Room Air 06/18/25 01:31 MDM - Fall Medical Decision Making Positional vertigo. Vitals are stable currently. She did receive 2 L of fluid en route, because evidently her blood pressure was low on EMS arrival. Her hemoglobin is 7.8. Normocytic. Creatinine is 2. Other laboratory not remarkable. Her first troponin is 23 Right thigh x-ray is negative. CT of the head and cervical spine are pending CTs reveal no fracture. No hemorrhage. Her blood pressure is stable. She is not orthostatic. She is given meclizine. She will be discharged back to the shelter. Lab Data 06/18/25 00:00 06/18/25 00:00 Radiology Impressions Cervical Spine CT 06/18/2514 IMPRESSION: 1. No acute cervical spine fracture or subluxation. 2. Multilevel degenerative changes. Femur X-Ray 06/18/2514 IMPRESSION: 1. No acute fracture or dislocation. 2. Moderate joint space narrowing of the medial compartment. Head CT 06/18/2514 IMPRESSION: No acute intracranial hemorrhage. No midline shift or mass effect. Laboratory Results WBC 6.20 10^3/uL (3.29-11.43) 06/18/25 00:00 RBC 2.82 10^6/uL (3.85-5.65) L 06/18/25 00:00 Hgb 7.80 g/dL (11.27-16.99) L 06/18/25 00:00 Hct 26.4 % (36-47) L 06/18/25 00:00 MCV 93.6 fl (85-98) 06/18/25 00:00 MCH 27.7 pg (27-33) 06/18/25 00:00 MCHC 29.5 g/dL (30-55) L 06/18/25 00:00 RDW 16.3 % (12.1-15.1) H 06/18/25 00:00 Plt Count 195 10^3/cmm (157-399) 06/18/25 00:00 MPV 10.8 fL (7.4-10.4) H 06/18/25 00:00 Neut % (Auto) 48.2 % 06/18/25 00:00 Lymph % (Auto) 41.5 % 06/18/25 00:00 [place] % (Auto) 7.9 % 06/18/25 00:00 Eos % (Auto) 1.0 % 06/18/25 00:00 Baso % (Auto) 0.3 % 06/18/25 00:00 Neut # (Auto) 2.99 10^3/uL (1.8-7.7) 06/18/25 00:00 Lymph # (Auto) 2.6 10^3/uL (0.8-4.8) 06/18/25 00:00 [place] # (Auto) 0.5 10^3/uL (0.2-0.9) 06/18/25 00:00 Eos # (Auto) 0.1 10^3/uL (0.0-0.8) 06/18/25 00:00 Baso # (Auto) 0.0 10^3/uL (0.0-0.1) 06/18/25 00:00 Nucleated RBC % (auto) 0 % 06/18/25 00:00 Nucleated RBCs # 0.0 /100WBC 06/18/25 00:00 PT 13.10 SECONDS (12.1-14.9) 06/18/25 00:00 INR 0.93 (0.8-1.2) 06/18/25 00:00 APTT 27.7 SECONDS (23.9-36.7) 06/18/25 00:00 Sodium 137 mmol/L (136-145) 06/18/25 00:00 Potassium 4.3 mmol/L (3.5-5.1) 06/18/25 00:00 Chloride 101 mmol/L (98-107) 06/18/25 00:00 Carbon Dioxide 26 mmol/L (22-29) 06/18/25 00:00 Anion Gap 14.3 (5-19) 06/18/25 00:00 BUN 32 mg/dL (8-23) H 06/18/25 00:00 Creatinine 2.0 mg/dL (0.5-0.9) H 06/18/25 00:00 GFR Calculation Not Reportable 06/18/25 00:00 Glucose 174 mg/dL (65-115) H 06/18/25 00:00 Calculated Osmolality 295 mOsm/kg (285-295) 06/18/25 00:00 Lactic Acid 2.2 mmol/L (0.5-2.2) 06/18/25 00:00 Calcium 8.4 mg/dL (8.5-10.5) L 06/18/25 00:00 Total Bilirubin 0.3 mg/dL (0.15-1.2) 06/18/25 00:00 AST 10 U/L (0-32) 06/18/25 00:00 ALT < 5 U/L (0-33) 06/18/25 00:00 Alkaline Phosphatase 134 U/L (35-105) H 06/18/25 00:00 Troponin T Baseline 23 ng/L (0-10) H 06/18/25 00:00 Troponin T 60 Minute 22.79 ng/L (0-10) H 06/18/25 01:00 Delta Troponin T -0.21 ABS# (0-10) L 06/18/25 01:00 Total Protein 6.1 g/dL (6.6-8.7) L 06/18/25 00:00 Albumin 3.6 g/dL (3.5-5.2) 06/18/25 00:00 Globulin 2.5 g/dL (1.3-4.6) 06/18/25 00:00 Urine Color Yellow (Yellow) 06/18/25 01:09 Urine Appearance Clear (CLEAR) 06/18/25 01:09 Urine pH 6.0 (5-7) 06/18/25 01:09 Ur Specific [place] 1.009 (1.005-1.030) 06/18/25 01:09 Urine Protein Negative (Negative) 06/18/25 01:09 Urine Glucose (UA) Negative (Normal) 06/18/25 01:09 Urine Ketones Negative (Negative) 06/18/25 01:09 Urine Blood Negative (Negative) 06/18/25 01:09 Urine Nitrate Negative (Negative) 06/18/25 01:09 Urine Bilirubin Negative (Negative) 06/18/25 01:09 Urine Urobilinogen 0.2 mg/dL (Negative) 06/18/25 01:09 Ur Leukocyte Esterase Negative (Negative) 06/18/25 01:09 Urine RBC 0-2 /hpf (0-2) 06/18/25 01:09 Urine WBC 0-5 /hpf (0-5) 06/18/25 01:09 Ur Squamous Epith Cells 0-5 /hpf (0-5) 06/18/25 01:09 Amorphous Sediment Not Reportable 06/18/25 01:09 Urine Bacteria None seen /hpf (NONE) 06/18/25 01:09 Hyaline Casts 4.52 /lpf 06/18/25 01:09 All radiology interpretation(s) finalized by discharge EKG Data EKG 1: Interpretation: EKG shows a sinus rhythm. Rate 75. [place] normal. QTc is 427. Other intervals appear normal. No ST wave changes. Discharge Plan Discharge Patient Disposition: Home Clinical Impression: Vertigo, Near syncope Condition: Stable Prescriptions: New meclizine 25 mg tablet 25 mg PO TID PRN (Reason: dizziness) Qty: 30 0RF No Action montelukast 10 mg tablet 10 mg PO DAILY olmesartan 20 mg tablet 20 mg PO DAILY pantoprazole 40 mg tablet,delayed release (DR/EC) 40 mg PO DAILY lovastatin 40 mg tablet 40 mg PO DAILY lamotrigine 100 mg tablet 200 mg PO DAILY tramadol 100 mg tablet 50 mg PO Q6H PRN (Reason: Sleep) albuterol sulfate [ProAir HFA] 90 mcg/actuation HFA aerosol inhaler 2 puff inhalation Q6H PRN (Reason: shortness of breath or wheezing) Qty: 8.5 0RF albuterol sulfate 2.5 mg /3 mL (0.083 %) solution for nebulization 2.5 mg inhalation Q6H PRN (Reason: shortness of breath or wheezing) Qty: 75 0RF galantamine 8 mg tablet 8 mg PO BID 30 Days Qty: 60 3RF Rx Instructions: administer with AM and PM meals mecobalamin (vitamin B12) 1,000 mcg tablet,disintegrating 1,000 mcg sublingual DAILY Rx Instructions: place tablet under tongue and allow to dissolve for at least30 secs before swallowing ondansetron 4 mg tablet,disintegrating 4 mg PO Q8H loperamide [Anti-Diarrheal (loperamide)] 2 mg capsule 2 mg PO Q4H PRN (Reason: Diarrhea) Rx Instructions: administer after each loose stool until symptoms controlled; do not exceed 8 mg per 24 hrs hydrocodone-acetaminophen 5-325 mg tablet 1 tab PO Q8H PRN (Reason: Pain) benzonatate 200 mg capsule 200 mg PO TID acetaminophen 500 mg tablet 500 mg PO Q6H PRN dicyclomine 10 mg capsule 10 mg PO QID PRN levothyroxine 50 mcg capsule 50 mcg PO DAILY Breztri Aerosphere 160-9-4.8 mcg/actuation HFA aerosol inhaler 2 inh inhalation BID carbidopa-levodopa 25-100 mg tablet See Rx Instructions PO TID Qty: 540 3RF Rx Instructions: orally three times daily; 2 in AM; 2 at noon, 2 in PM nitroglycerin 0.4 mg tablet, sublingual 0.4 mg sublingual Q5M PRN (Reason: chest pain) 30 Days Qty: 30 3RF Rx Instructions: until response; do not exceed 3 doses per episode isosorbide mononitrate 30 mg tablet extended release 24 hr 30 mg PO DAILY Qty: 30 3RF docusate sodium 100 mg capsule 100 mg PO BID fluticasone propionate [Allergy Relief (fluticasone)] 50 mcg/actuation spray,suspension 1 spray intranasal DAILY Rx Instructions: administer into each nostril polyethylene glycol 3350 17 gram/dose powder 4 g PO DAILY PRN dextromethorphan-guaifenesin 10-100 mg/5 mL liquid 10 ml PO Q4H PRN clotrimazole-betamethasone 1-0.05 % cream 1 applic topical BID diphenhydramine HCl 25 mg tablet 25 mg PO TID PRN magnesium hydroxide [Milk of Magnesia] 400 mg/5 mL suspension 5 ml PO DAILY PRN metoprolol tartrate 25 mg tablet 12.5 mg PO BID Qty: 30 3RF Rx Instructions: Hold if heart rate less than 60 or blood pressure less than 100/60 (DME) DME: [facility] See Rx Instructions .Route Qty: 1 0RF Rx Instructions: Wide Wheeled Walker 8 Casters citalopram 40 mg tablet 40 mg PO DAILY Qty: 60 5RF Eliquis 5 mg tablet 2.5 mg PO BID Qty: 60 3RF quetiapine 100 mg tablet 100 mg PO .QPM 90 Days Qty: 90 3RF furosemide [Lasix] 20 mg tablet 40 mg PO DAILY PRN (Reason: edema) Qty: 30 3RF Discharge Orders: Discharge ED (Routine); Ordered 06/18/25 Ordered By: Wilfrido Ryan Referrals: Elias Kruger MD [Primary Care Provider, Family Practice] Patient Instructions: Vertigo (ED), Near Syncope (ED), Opioid Safety, Pain Management, Patient Portal & Satya Instructions Activity Restrictions/Additional Instructions: Medication as directed. When dizziness improves, you may stop the medication. Return for any worrisome problems. Print Language: Kinyarwanda Coding Level of Care Code ED Addiction Nurse for Tahira Zamora
[2025-06-18 01:20] LABS: Glucose Urine UA Negative (Normal); Nitrate Urine Negative (Negative); Specific Gravity, Urine 1.009 (1.005-1.030)
[2025-06-18 01:25] LABS: Add Urine Microscopic? YES
[2025-06-18] MEDS: ondansetron 2 mg/ML SDV 2 mL 4 MG IVP (02:00)
[2025-06-18] MEDS: morphine 4 mg/mL SDV 1 mL 2 MG IVP (02:00)
[2025-06-18 02:20] LABS: Reflex Lactate Order REFLEX LACTIC ORDERD
== END 2025-06-18 02:59 | disposition home or self-care (01) ==
PROVIDERS: Emergency Provider Emergency Medicine; PCP Family Medicine
DX: R42 Dizziness and giddiness (principal); R55 Syncope and collapse; Z79.01 Long term (current) use of anticoagulants; Z87.891 Personal history of nicotine dependence; E78.5 Hyperlipidemia, unspecified; E11.9 Type 2 diabetes mellitus without complications; I10 Essential (primary) hypertension
CPT/HCPCS: 36415; 70450; 72125; 73552; 80053; 81001; 83605; 84484; 85025; 85610; 85730; 93005; 96374; 96375; 99285; J2270; J2405; J8597